=== PATIENT | male | born 1950 | race Two or more races ===

== ENCOUNTER 2020-02-12 10:44 | Emergency (ER) | payer MEDICARE, SELFPAY ==
--- NOTE | 2020-02-12 10:48 | ECG_ITS ---
Test Reason : CHEST PAIN Blood Pressure : / mmHG Vent. Rate : 063 BPM Atrial Rate : 063 BPM P-R Int : 160 ms QRS Dur : 092 ms QT Int : 408 ms P-R-T Axes : 062 048 070 degrees QTc Int : 417 ms Normal sinus rhythm Normal ECG When compared with ECG of 30-JAN-2019 16:57, Vent. rate has decreased BY 44 BPM Referred By: Anni James Electronically Signed By:ABRAHAN NELSON MD
--- NOTE | 2020-02-12 10:50 | ED_ITS ---
HPI - Chest Pain General Chief Complaint: Chest Pain Stated Complaint: low heart rate,high blood pressure Time Seen by Provider: 02/12/20 10:48 Source: patient Mode of arrival: ambulatory Limitations: no limitations History of Present Illness MD complaint: chest pain Onset (ago): week(s) (2) Timing of current episode: episodic Prior episodes: No Onset: during rest and during exertion Pain location: substernal and left chest Pain radiation: none Severity: moderate Quality: tightness, aching and sharp Relieving factors: rest Exacerbating factors: exertion and inspiration Associated symptoms: dyspnea Treatment prior to arrival: aspirin Related Data Previous Rx's Medication Instructions Recorded amlodipine 5 mg PO DAILY #30 tab 02/12/20 lorazepam [Ativan] 1 mg PO DAILY PRN #10 tab 02/12/20 Allergies Allergy/AdvReac Type Severity Reaction Status Date / Time aspirin Allergy Unknown Verified 04/22/14 00:00 No Known Allergies Allergy Unverified 11/08/19 15:09 [No Known Allergies*] Review of Systems Review of Systems: Constitutional : No Fever, No Chills ENT/Mouth : No sore throat, No Rhinorrhea, No Swallowing Difficulty Eyes: No Eye Pain, No Swelling, No Redness Cardiovascular : pos Chest Pain, positive SOB, No Orthopnea, no Edema Respiratory : No Cough, No Sputum, No Wheezing, positive dyspnea Gastrointestinal : No Nausea, No Vomiting, No Diarrhea, No abdominal Pain, No Hematochezia, No Melena Genitourinary : No Dysuria, No Urinary Frequency, No Hematuria Musculoskeletal : No joint pain, No Myalgias Skin : No Skin Lesions, No rash Neuro : No Weakness, No Numbness, No Dizziness, No Headache Psych : No Anxiety/Panic, No Depression Heme/Lymph: No Bruising, No Lymphadenopathy Endocrine : No Polyuria, No Polydipsia All other systems reviewed and are negative [facility] Past Medical History Medical History (Updated 02/12/20 @ 13:58 by Anni James DO) Back pain Depressed High cholesterol HTN (hypertension) Stroke Social History Social History Advance Directives: No Advance Directives Information Provided: Yes Physical Exam Vital Signs: Vital Signs: Last Vital Signs Temp 98.6 F 02/12/20 10:51 Pulse 60 02/12/20 12:01 Resp 18 02/12/20 12:01 BP 163/73 H 02/12/20 12:01 Pulse Ox 96 02/12/20 12:01 Body Mass Index 30.9 Appearance: Alert. Oriented X3. No acute distress. Eyes: Pupils equal, round and reactive to light. ENT: Pharynx normal. Neck: Normal inspection. Neck supple. CVS: Normal heart rate and rhythm. Pulses normal. Respiratory: No respiratory distress. Breath sounds normal. Abdomen: Soft and non-tender. Skin: Skin warm and dry. Normal skin color. Normal skin turgor. Extremities: No lower extremity edema. No calf ttp Neuro: Oriented X 3. No motor deficit. No sensory deficit. Course Course Course Narrative: EKG no acute ischemia, troponin flat at this time, no response to nitro will try ativan for anxiety no distress at all has been on the phone - he has had chest pain x 2 weeks exertion and rest, no ischemia on EKG, on aspirin will add on amlodipine and start PRN anxiety medications refer to cardiology for outpatient stress test MDM - Chest Pain MDM Narrative Medical decision making narrative: 69 yo male with hx of HTN, stroke no deficits, HPL here with 2 weeks of chest pain/dyspnea pleuritic at times but worse with exertion, noted BPs 180s taking his metoprolol/lisinopril - no herman es no caffeine no OTC medications, no prior stress test/cardiac cath at this time will need labs, troponin, EKG, CXR, ddimer, took ASA this AM, give nitro dispo per results and findings, his story is somewhat concerning Lab Data Result diagrams: 02/12/20 11:08 02/12/20 11:49 Labs: Lab Results 02/12/20 02/12/20 02/12/20 Range/Units 11:06 11:08 11:08 WBC 6.5 (4.8-10.8) X10*3/uL RBC 4.90 (4.60-5.80) X10*6/uL Hgb 16.5 (14.0-18.0) g/dl Hct 47.2 (42-52) % MCV 96.3 (80-98) fL MCH 33.7 H (27.0-33.0) pg MCHC 35.0 (31.0-36.0) g/dl RDW 12.1 (11.0-16.0) % Plt Count 216 (160-400) X10*3/uL MPV 9.7 (9.4-12.4) fL Immature Gran % (Auto) 0.5 H (0.0-0.4) % Neut % (Auto) 57.1 (45-73) % Lymph % (Auto) 25.9 (20-40) % Sullivan % (Auto) 8.3 (2-11) % Eos % (Auto) 7.4 H (0-4) % Baso % (Auto) 0.8 (0-2) % Lymph # (Auto) 1.7 (1.2-4.9) X10*3/uL Sullivan # (Auto) 0.5 (0.1-1.2) X10*3/uL Eos # (Auto) 0.5 H (0.0-0.4) X10*3/uL Baso # (Auto) 0.1 (0.0-0.2) X10*3/uL Abs Immat Gran (auto) 0.03 (0.00-0.03) X10*3/uL Absolute Neuts (auto) 3.7 (2.0-8.3) X10*3/uL Absolute Nucleated RBC 0.000 (0.0-0.012) X10*3/uL Nucleated RBC % (auto) 0.0 (0.0-0.2) /100WBC PT (10.8-13.0) SEC INR (0.9-1.1) APTT (24.1-38.0) SEC D-Dimer NG/ML Sodium Cancelled Potassium Cancelled Chloride Cancelled Carbon Dioxide Cancelled Anion Gap Cancelled BUN Cancelled Creatinine Cancelled Estim Creat Clear Calc Cancelled Estimated GFR Cancelled Random Glucose Cancelled Fasting Glucose (60-99) mg/dL Calcium Cancelled Magnesium Total Bilirubin Direct Bilirubin AST ALT Alkaline Phosphatase Troponin I High Sens (<3.5-35.0) ng/L B-Natriuretic Peptide (<100) pg/mL Total Protein Albumin Lipase COVID-19 (LEODAN) Negative (Negative) COVID-19 Clin Com See Note 02/12/20 02/12/20 02/12/20 Range/Units 11:08 11:08 11:08 WBC (4.8-10.8) X10*3/uL RBC (4.60-5.80) X10*6/uL Hgb (14.0-18.0) g/dl Hct (42-52) % MCV (80-98) fL MCH (27.0-33.0) pg MCHC (31.0-36.0) g/dl RDW (11.0-16.0) % Plt Count (160-400) X10*3/uL MPV (9.4-12.4) fL Immature Gran % (Auto) (0.0-0.4) % Neut % (Auto) (45-73) % Lymph % (Auto) (20-40) % Sullivan % (Auto) (2-11) % Eos % (Auto) (0-4) % Baso % (Auto) (0-2) % Lymph # (Auto) (1.2-4.9) X10*3/uL Sullivan # (Auto) (0.1-1.2) X10*3/uL Eos # (Auto) (0.0-0.4) X10*3/uL Baso # (Auto) (0.0-0.2) X10*3/uL Abs Immat Gran (auto) (0.00-0.03) X10*3/uL Absolute Neuts (auto) (2.0-8.3) X10*3/uL Absolute Nucleated RBC (0.0-0.012) X10*3/uL Nucleated RBC % (auto) (0.0-0.2) /100WBC PT 11.0 (10.8-13.0) SEC INR 0.9 (0.9-1.1) APTT 32.4 (24.1-38.0) SEC D-Dimer < 200 NG/ML Sodium Potassium Chloride Carbon Dioxide Anion Gap BUN Creatinine Estim Creat Clear Calc Estimated GFR Random Glucose Fasting Glucose (60-99) mg/dL Calcium Magnesium Cancelled Total Bilirubin Cancelled Direct Bilirubin Cancelled AST Cancelled ALT Cancelled Alkaline Phosphatase Cancelled Troponin I High Sens (<3.5-35.0) ng/L B-Natriuretic Peptide 64 (<100) pg/mL Total Protein Cancelled Albumin Cancelled Lipase Cancelled COVID-19 (LEODAN) (Negative) COVID-19 Clin Com 02/12/20 02/12/20 Range/Units 11:49 12:42 WBC (4.8-10.8) X10*3/uL RBC (4.60-5.80) X10*6/uL Hgb (14.0-18.0) g/dl Hct (42-52) % MCV (80-98) fL MCH (27.0-33.0) pg MCHC (31.0-36.0) g/dl RDW (11.0-16.0) % Plt Count (160-400) X10*3/uL MPV (9.4-12.4) fL Immature Gran % (Auto) (0.0-0.4) % Neut % (Auto) (45-73) % Lymph % (Auto) (20-40) % Sullivan % (Auto) (2-11) % Eos % (Auto) (0-4) % Baso % (Auto) (0-2) % Lymph # (Auto) (1.2-4.9) X10*3/uL Sullivan # (Auto) (0.1-1.2) X10*3/uL Eos # (Auto) (0.0-0.4) X10*3/uL Baso # (Auto) (0.0-0.2) X10*3/uL Abs Immat Gran (auto) (0.00-0.03) X10*3/uL Absolute Neuts (auto) (2.0-8.3) X10*3/uL Absolute Nucleated RBC (0.0-0.012) X10*3/uL Nucleated RBC % (auto) (0.0-0.2) /100WBC PT (10.8-13.0) SEC INR (0.9-1.1) APTT (24.1-38.0) SEC D-Dimer NG/ML Sodium 139 Potassium 3.8 Chloride 107 Carbon Dioxide 25 Anion Gap 11 L BUN 13 Creatinine 0.89 Estim Creat Clear Calc 91.6 Estimated GFR > 60 Random Glucose Fasting Glucose 152 H (60-99) mg/dL Calcium 8.3 L Magnesium 2.1 Total Bilirubin 0.5 Direct Bilirubin 0.2 AST 15 ALT 17 Alkaline Phosphatase 45 Troponin I High Sens < 3.5 (<3.5-35.0) ng/L B-Natriuretic Peptide (<100) pg/mL Total Protein 6.5 Albumin 4.0 Lipase 43 COVID-19 (LEODAN) (Negative) COVID-19 Clin Com ECG Data ECG #1: Attestation: I personally reviewed and interpreted this ECG as follows: ECG interpretation date: 02/12/20 ECG interpretation time: 11:03 Interpretation: Rate: 63 Rhythm: NSR [place]: normal Normal P waves. Normal JOSE ALFREDO. Normal QRS complex. ST T wave : inverted aVL, no GOYO qTC: normal prior studies: artifact noted but no acute ischemia The study has been interpreted contemporaneously by me. . Discharge Plan Discharge Clinical Impression: Chest pain Qualifiers: Chest pain type: unspecified Qualified Code(s): R07.9 - Chest pain, unspecified HTN (hypertension) Qualifiers: Hypertension type: unspecified Qualified Code(s): I10 - Essential (primary) h ypertension Patient Disposition: Home, Self-Care Instructions: Chest Pain (ED), Chronic Hypertension (ED) Additional Instructions: return to ED for any worsening symptoms or concerns you need to have an outpatient stress test please call your doctor Prescriptions: New amlodipine 5 mg tablet 5 mg PO DAILY Qty: 30 RF: 0 lorazepam [Ativan] 1 mg tablet 1 mg PO DAILY PRN (Reason: anxiety) Qty: 10 RF: 0 Referrals: Anders Cruz MD [Primary Care Provider] - 2 days (outpatient stress test) Stand Alone Forms: Work/School Release
[2020-02-12 10:51] VITALS: BP 179/91; PULSE 62; RESP 18; TEMP 37; O2SAT 96; BMI 30.9
--- NOTE | 2020-02-12 10:57 | XR_ITS ---
EXAMINATION: XR CHEST CLINICAL INFORMATION: Chest pain. COMPARISON: Chest 01/30/2019 TECHNIQUE: Frontal view of the chest was obtained. FINDINGS: The lungs are well-expanded and clear of acute pneumonic process. Mild prominence of bilateral interstitial markings but no acute process. Heart size and pulmonary vascularity is normal. No gross bony or ligamentous seen. XR/XR chest 1V IMPRESSION: Unremarkable chest exam. No change from 01/30/2019.
[2020-02-12] MEDS: Nitroglycerin 0.4 MG TAB.SUBL SUBLINGUAL (11:16)
[2020-02-12 11:19] VITALS: BP 172/90; PULSE 69; O2SAT 96
[2020-02-12 11:19] LABS: Basophils Absolute Auto 0.1 X10*3/uL (0.0-0.2); Basophils Percent Auto 0.8 % (0-2); Eosinophils Absolute Auto 0.5 X10*3/uL (0.0-0.4); Eosinophils Percent Auto 7.4 % (0-4); Hematocrit 47.2 % (42-52); Hemoglobin 16.5 g/dl (14.0-18.0); Imm Gran Abs Auto 0.03 X10*3/uL (0.00-0.03); Imm Gran Pct Auto 0.5 % (0.0-0.4); Lymphocytes Absolute Auto 1.7 X10*3/uL (1.2-4.9); Lymphocytes Percent Auto 25.9 % (20-40); MANUAL DIFF FLAG NO; Mean Corpuscular Hemoglobin 33.7 pg (27.0-33.0); Mean Corpuscular Volume 96.3 fL (80-98); Mean Platelet Volume 9.7 fL (9.4-12.4); Monocytes Absolute Auto 0.5 X10*3/uL (0.1-1.2); Monocytes Percent Auto 8.3 % (2-11); Neutrophils Absolute Auto 3.7 X10*3/uL (2.0-8.3); Neutrophils Percent Auto 57.1 % (45-73); Platelet Count 216 X10*3/uL (160-400); Red Cell Distribution Width 12.1 % (11.0-16.0); White Blood Count 6.5 X10*3/uL (4.8-10.8)
[2020-02-12] MEDS: Acetaminophen 325 MG TABLET 650 MG PO (11:19)
[2020-02-12 11:23] LABS: INTERNATIONAL NORM RATIO 0.9 (0.9-1.1)
[2020-02-12 11:26] LABS: Partial Thromboplastin Time 32.4 SEC (24.1-38.0)
[2020-02-12 11:31] LABS: D Dimer < 200 NG/ML
[2020-02-12 11:33] VITALS: BP 140/84; PULSE 61; RESP 18; O2SAT 95
[2020-02-12 11:44] LABS: B Type Natriuretic Peptide 64 pg/mL (<100)
[2020-02-12 11:47] LABS: COVID-19 Test Negative (Negative); IDNOW Serial# 9DD0AD1C
[2020-02-12 12:01] VITALS: BP 163/73; PULSE 60; RESP 18; O2SAT 96
[2020-02-12 12:33] LABS: Alanine Aminotransferase 17 U/L (0-40); Alkaline Phosphatase 45 U/L (39-117); Anion Gap 11 (12-20); Aspartate Amino Transferase 15 U/L (5-37); Bilirubin Direct 0.2 mg/dL (0.0-0.5); Bilirubin Total 0.5 mg/dL (0.0-1.0); Blood Urea Nitrogen 13 mg/dL (9-16); Calcium 8.3 mg/dL (8.4-10.2); Carbon Dioxide 25 mmol/L (22-29); Chloride 107 mmol/L (96-108); Creatinine Clr Calc Pharmacy 91.6; Estimated Glomerular Filt Rate > 60; Glucose Fasting 152 mg/dL (60-99); Lipase 43 U/L (8-78); Magnesium 2.1 mg/dL (1.6-2.6); Potassium 3.8 mmol/l (3.3-5.1); Sodium 139 mmol/L (135-145); Total Protein 6.5 g/dL (6.5-8.0)
[2020-02-12 13:12] LABS: Troponin-I High Sensitivity < 3.5 ng/L (<3.5-35.0)
[2020-02-12] MEDS: LORazepam 1 MG TABLET PO (13:44)
== END 2020-02-12 14:08 | disposition home or self-care (01) ==
PROVIDERS: Emergency Provider Emergency Medicine; PCP Internal Medicine
DX: R07.9 Chest pain, unspecified (principal); I11.0 Hypertensive heart disease with heart failure; I10 Essential (primary) hypertension; Z79.899 Other long term (current) drug therapy; Z20.828 Contact with and (suspected) exposure to other viral communicable diseases
CPT/HCPCS: 36415; 71045; 80048; 80076; 83690; 83735; 83880; 84484; 85025; 85379; 85610; 85730; 87635; 93005; 99284; 99285

== ENCOUNTER 2020-02-13 16:25 | Emergency (ER) | payer MEDICARE, SELFPAY ==
--- NOTE | 2020-02-13 | ECG_ITS ---
Test Reason : CHEST PAIN Blood Pressure : / mmHG Vent. Rate : 058 BPM Atrial Rate : 058 BPM P-R Int : 150 ms QRS Dur : 098 ms QT Int : 400 ms P-R-T Axes : 036 042 056 degrees QTc Int : 392 ms Sinus bradycardia Otherwise normal ECG When compared with ECG of 12-FEB-2020 10:52, No significant change was found Referred By: Generic ED Physician Electronically Signed By:ABRAHAN NELSON MD
[2020-02-13 16:26] VITALS: BMI 30.8
[2020-02-13 16:41] VITALS: BP 170/97; PULSE 58; RESP 16; TEMP 37.1; O2SAT 95; BMI 30.8
--- NOTE | 2020-02-13 16:41 | XR_ITS ---
EXAMINATION: XR CHEST CLINICAL INFORMATION: Chest pain COMPARISON: Chest radiographs 02/12/2020, 01/30/2019 TECHNIQUE: Portable upright AP view of the chest was obtained. FINDINGS: The heart is normal in size. The vascularity is normal. There is no pneumothorax or vascular congestion. No airspace consolidation or groundglass opacity or effusion. No acute bony abnormality. XR/XR chest 1V IMPRESSION: Unremarkable examination.
--- NOTE | 2020-02-13 16:53 | ED_ITS ---
HPI - Chest Pain General Chief Complaint: Chest Pain Stated Complaint: chest pressure Time Seen by Provider: 02/13/20 16:41 Source: patient Mode of arrival: ambulatory Limitations: no limitations History of Present Illness HPI narrative: 69-year-old male history of hypertension, remote history of CVA with no neurological deficit, presented with few weeks of mid chest pain with no radiation, patient described pain sometimes has pleuritic chest pain but another time it also exertional, pain is localized to the mid chest area with no radiation, patient also was complaining of headache and high blood pressure for the past few weeks, patient was seen in the emergency department yesterday had cardiac workup which was unremarkable, patient was sent back to the primary doctor who recommended to come back to the emergency department for further evaluation. Review labs from yesterday/chest x-ray D-dimer/troponin was unremarkable. Related Data Previous Rx's Medication Instructions Recorded amlodipine 5 mg PO DAILY #30 tab 02/12/20 lorazepam [Ativan] 1 mg PO DAILY PRN #10 tab 02/12/20 Allergies Allergy/AdvReac Type Severity Reaction Status Date / Time No Known Allergies Allergy Verified 02/13/20 16:48 [No Known Allergies*] Review of Systems Review of Systems: All other systems are reviewed and are negative Constitutional: Reports as per HPI and Reports no additional constitutional complaints Eyes: Reports as per HPI and Reports no additional eye complaints Reports system reviewed and no additional complaints, except as documented Cardiovascular: Reports as per HPI and Reports no additional cardiovascular complaints Respiratory: Reports as per HPI and Reports no additional respiratory complaints Gastrointestinal: Reports as per HPI and Reports no additional gastrointestinal complaints Genitourinary: Reports no additional female genitourinary complaints Musculoskeletal: Reports no additional musculoskeletal complaints Skin/Breast: Reports system reviewed and no additional complaints, except as doc u Psychiatric: Reports no additional psychiatric complaints Endocrine: Reports no additional endocrine complaints Hematologic/Lymphatic: Reports no additional hematologic/lymphatic complaints Allergic/Immunologic: Reports no additional allergic/immunologic complaints Reports system reviewed and no additional complaints, except as documented and Reports Abnormal speech present [facility] Past Medical History Medical History Back pain Depressed High cholesterol HTN (hypertension) Stroke Social History Social History Smoking Status: Never smoker Use of substances other than those prescribed or required for medical reasons: Yes Substance Use Type: Marijuana Advance Directives: No Advance Directives Information Provided: Yes Physical Exam Vital Signs: Vital Signs: Last Vital Signs Temp 98.7 F 02/13/20 16:41 Pulse 63 02/13/20 18:00 Resp 16 02/13/20 18:00 BP 157/84 H 02/13/20 18:00 Pulse Ox 95 02/13/20 18:00 Body Mass Index 30.8 Vital signs have been reviewed as normal and appeared to be correct. Blood pressure in the high range. Heart rate normal. Respiration rate normal. Temperature normal. Oxygen saturation normal. Appearance: Alert. Oriented X3. No acute distress. Head: Normal external exam. Normocephalic. Atraumatic. No Marrero signs noted. No raccoon eyes noted Eyes: PERRLA. EOMI. Conjunctiva and sclera normal. Eyelids normal. ENT: EAC normal. TM's Normal. Pharynx normal. Uvula midline. Moist mucous membranes. No trismus noted. No drooling noted. No muffled voice noted. Neck: Normal inspection. Neck supple. FROM. No adenopathy. Thyroid Normal. No meningeal signs. No neck mass noted. CVS: Normal heart rate and rhythm. Heart sound normal. No murmurs noted. Pulses normal throughout. Respiratory: No respiratory distress. Painless inspiration. Breath sounds normal. No wheezes/rales/rhonchi noted. Chest nontender. No accessory muscle usage noted or decreased air movement noted. Abdomen: Soft and nontender. Bowel sounds normal in all 4 quadrants. No distention noted. No organomegaly noted. No visible injury noted. Back: No CVA tenderness. Full range of motion noted. Skin: Skin warm and dry. Normal skin color. Normal skin turgor. No rashes/lesions/lacerations noted. Extremities: No lower extremity edema. Extremities exhibit normal range of motion. Extremities nontender. Neuro: Oriented X 3. No motor deficit. No sensory deficit. Reflexes normal. MDM - Chest Pain MDM Narrative Medical decision making narrative: Assessment and plan. 69-year-old male with history of localized chest pain described as exertional, patient was evaluated in the emergency department yesterday found to have high blood pressure patient was prescribed amlodipine 5 mg daily was started today, patient was seen and evaluated by her primary doctor who sent the patient back to the emergency department for reassessment, patient's story unchanged from yesterday intermittent exertional chest pain on and off for the past few weeks, unremarkable troponin since yesterday, unremarkable EKG changes, the case was discussed with Dr. Conner (director traffic and planning) since the patient had serial of negative high sensitive troponin, D-dimer, EKG, patient was instructed to take his new blood pressure medication, and call Dr. Conner make an appointment for an outpa tient stress test. Lab Data Result diagrams: 02/13/20 17:12 02/13/20 17:12 Labs: Lab Results 02/13/20 02/13/20 02/13/20 Range/Units 17:12 17:12 17:12 WBC 8.4 (4.8-10.8) X10*3/uL RBC 4.87 (4.60-5.80) X10*6/uL Hgb 16.1 (14.0-18.0) g/dl Hct 46.1 (42-52) % MCV 94.7 (80-98) fL MCH 33.1 H (27.0-33.0) pg MCHC 34.9 (31.0-36.0) g/dl RDW 12.0 (11.0-16.0) % Plt Count 218 (160-400) X10*3/uL MPV 10.0 (9.4-12.4) fL Immature Gran % (Auto) 0.4 (0.0-0.4) % Neut % (Auto) 58.2 (45-73) % Lymph % (Auto) 26.4 (20-40) % [place] % (Auto) 9.4 (2-11) % Eos % (Auto) 5.0 H (0-4) % Baso % (Auto) 0.6 (0-2) % Lymph # (Auto) 2.2 (1.2-4.9) X10*3/uL [place] # (Auto) 0.8 (0.1-1.2) X10*3/uL Eos # (Auto) 0.4 (0.0-0.4) X10*3/uL Baso # (Auto) 0.1 (0.0-0.2) X10*3/uL Abs Immat Gran (auto) 0.03 (0.00-0.03) X10*3/uL Absolute Neuts (auto) 4.9 (2.0-8.3) X10*3/uL Absolute Nucleated RBC 0.000 (0.0-0.012) X10*3/uL Nucleated RBC % (auto) 0.0 (0.0-0.2) /100WBC D-Dimer < 200 NG/ML Sodium 139 (135-145) mmol/L Potassium 4.2 (3.3-5.1) mmol/l Chloride 104 (96-108) mmol/L Carbon Dioxide 25 (22-29) mmol/L Anion Gap 14 (12-20) BUN 12 (9-16) mg/dL Creatinine 0.89 (0.5-1.4) mg/dL Estim Creat Clear Calc 91.5 Estimated GFR > 60 Random Glucose 90 (60-115) mg/dL Calcium 8.8 D (8.4-10.2) mg/dL Total Bilirubin 0.7 (0.0-1.0) mg/dL Direct Bilirubin 0.2 (0.0-0.5) mg/dL AST 20 (5-37) U/L ALT 19 (0-40) U/L Alkaline Phosphatase 38 L (39-117) U/L Troponin I High Sens (<3.5-35.0) ng/L B-Natriuretic Peptide (<100) pg/mL Total Protein 7.2 (6.5-8.0) g/dL Albumin 4.4 (3.5-5.0) g/dL Lipase 37 (8-78) U/L 02/13/20 Range/Units 17:12 WBC (4.8-10.8) X10*3/uL RBC (4.60-5.80) X10*6/uL Hgb (14.0-18.0) g/dl Hct (42-52) % MCV (80-98) fL MCH (27.0-33.0) pg MCHC (31.0-36.0) g/dl RDW (11.0-16.0) % Plt Count (160-400) X10*3/uL MPV (9.4-12.4) fL Immature Gran % (Auto) (0.0-0.4) % Neut % (Auto) (45-73) % Lymph % (Auto) (20-40) % [place] % (Auto) (2-11) % Eos % (Auto) (0-4) % Baso % (Auto) (0-2) % Lymph # (Auto) (1.2-4.9) X10*3/uL [place] # (Auto) (0.1-1.2) X10*3/uL Eos # (Auto) (0.0-0.4) X10*3/uL Baso # (Auto) (0.0-0.2) X10*3/uL Abs Immat Gran (auto) (0.00-0.03) X10*3/uL Absolute Neuts (auto) (2.0-8.3) X10*3/uL Absolute Nucleated RBC (0.0-0.012) X10*3/uL Nucleated RBC % (auto) (0.0-0.2) /100WBC D-Dimer NG/ML Sodium (135-145) mmol/L Potassium (3.3-5.1) mmol/l Chloride (96-108) mmol/L Carbon Dioxide (22-29) mmol/L Anion Gap (12-20) BUN (9-16) mg/dL Creatinine (0.5-1.4) mg/dL Estim Creat Clear Calc Estimated GFR Random Glucose (60-115) mg/dL Calcium (8.4-10.2) mg/dL Total Bilirubin (0.0-1.0) mg/dL Direct Bilirubin (0.0-0.5) mg/dL AST (5-37) U/L ALT (0-40) U/L Alkaline Phosphatase (39-117) U/L Troponin I High Sens < 3.5 (<3.5-35.0) ng/L B-Natriuretic Peptide 87 (<100) pg/mL Total Protein (6.5-8.0) g/dL Albumin (3.5-5.0) g/dL Lipase (8-78) U/L Imaging Data Chest x-ray: Radiologist's impression: Unremarkable examination. ECG Data ECG #1: Interpretation: Sinus bradycardia at 58 beats per minute, normal axis, normal intervals, no ST-T changes. Discharge Plan Discharge Clinical Impression: Chest pain Qualifiers: Chest pain type: unspecified Qualified Code(s): R07.9 - Chest pain, unspecified Hypertension Qualifiers: Hypertension type: essential hypertension Qualified Code(s): I10 - Essential (primary) hypertension Patient Disposition: Home, Self-Care Instructions: Hypertension (ED), Chest Pain (ED) Additional Instructions: Take your blood pressure medication as we discussed, try to avoid strenuous activity until we see Dr. Conner. Come back to the emergency department for worsening or change of the character of the chest pain. Prescriptions: No Action amlodipine 5 mg tablet 5 mg PO DAILY Qty: 30 RF: 0 lorazepam [Ativan] 1 mg tablet 1 mg PO DAILY PRN (Reason: anxiety) Qty: 10 RF: 0 Referrals: James Conner MD [Physician] - 2 days
[2020-02-13 17:15] VITALS: PULSE 55
[2020-02-13 17:20] LABS: MANUAL DIFF FLAG NO
[2020-02-13 17:24] LABS: Basophils Absolute Auto 0.1 X10*3/uL (0.0-0.2); Basophils Percent Auto 0.6 % (0-2); Eosinophils Absolute Auto 0.4 X10*3/uL (0.0-0.4); Hematocrit 46.1 % (42-52); Hemoglobin 16.1 g/dl (14.0-18.0); Imm Gran Abs Auto 0.03 X10*3/uL (0.00-0.03); Imm Gran Pct Auto 0.4 % (0.0-0.4); Lymphocytes Absolute Auto 2.2 X10*3/uL (1.2-4.9); Lymphocytes Percent Auto 26.4 % (20-40); Mean Corpuscular HGB Conc 34.9 g/dl (31.0-36.0); Mean Corpuscular Hemoglobin 33.1 pg (27.0-33.0); Mean Corpuscular Volume 94.7 fL (80-98); Monocytes Absolute Auto 0.8 X10*3/uL (0.1-1.2); Monocytes Percent Auto 9.4 % (2-11); Neutrophils Absolute Auto 4.9 X10*3/uL (2.0-8.3); Neutrophils Percent Auto 58.2 % (45-73); Platelet Count 218 X10*3/uL (160-400); Red Blood Count 4.87 X10*6/uL (4.60-5.80); White Blood Count 8.4 X10*3/uL (4.8-10.8)
[2020-02-13 17:42] LABS: D Dimer < 200 NG/ML
[2020-02-13 17:46] LABS: Alanine Aminotransferase 19 U/L (0-40); Albumin Level 4.4 g/dL (3.5-5.0); Alkaline Phosphatase 38 U/L (39-117); Anion Gap 14 (12-20); Aspartate Amino Transferase 20 U/L (5-37); Bilirubin Direct 0.2 mg/dL (0.0-0.5); Bilirubin Total 0.7 mg/dL (0.0-1.0); Blood Urea Nitrogen 12 mg/dL (9-16); Calcium 8.8 mg/dL (8.4-10.2); Carbon Dioxide 25 mmol/L (22-29); Chloride 104 mmol/L (96-108); Creatinine Clr Calc Pharmacy 91.5; Estimated Glomerular Filt Rate > 60; Glucose Random 90 mg/dL (60-115); Lipase 37 U/L (8-78); Potassium 4.2 mmol/l (3.3-5.1); Sodium 139 mmol/L (135-145); Total Protein 7.2 g/dL (6.5-8.0)
[2020-02-13 17:47] LABS: B Type Natriuretic Peptide 87 pg/mL (<100); Troponin-I High Sensitivity < 3.5 ng/L (<3.5-35.0)
[2020-02-13 18:00] VITALS: BP 157/84; PULSE 63; RESP 16; O2SAT 95
== END 2020-02-13 18:56 | disposition home or self-care (01) ==
PROVIDERS: Emergency Provider Emergency Medicine; PCP Internal Medicine
DX: R07.9 Chest pain, unspecified (principal); I10 Essential (primary) hypertension
CPT/HCPCS: 36415; 71045; 80048; 80076; 83690; 83880; 84484; 85025; 85379; 93005; 99284

== ENCOUNTER → 2020-03-05 08:32 | Outpatient (BNVA) | payer MEDICARE, SELFPAY | PROVIDERS: PCP Internal Medicine; Visit Provider Internal Medicine | DX: R07.2 Precordial pain (principal); R06.02 Shortness of breath; I10 Essential (primary) hypertension | CPT/HCPCS: 99202 ==

== ENCOUNTER → 2020-04-02 08:20 | Outpatient (REF) | payer MEDICARE, SELFPAY ==
--- NOTE | ~2020-04-02 | NM_ITS ---
Lexiscan Myocardial perfusion study Indication: Chest discomfort, hypertension, chest pain, shortness of breath, assess for coronary disease and ischemia Technique: The patient was brought in for a Lexiscan perfusion study on 04/02/2020 and was injected 0.4 mg of Lexiscan intravenously. Within a minute of this injection 35 mCi of sestamibi was given intravenously. Images were obtained using the SPECT gamma camera interlaced with the gating device. Images were obtained in supine position. Resting perfusion study was performed on 04/03/2020. Patient was administered 35 mCi of sestamibi intravenously at rest. Images were then obtained in supine position. Total DLP 69mGy-cm. Images were processed with the software and compared side to side in short axis, horizontal long axis and vertical long axis views. Findings: Raw acquisition was reviewed. The stress perfusion study showed diminished tracer uptake along the inferior wall and inferior septum. With CT attenuation correction, there is improvement and hence could represent diaphragmatic attenuation artifact. The gated study shows normal LV systolic function with calculated LVEF of 61%. LV cavity is normal in size. The gated study shows normal wall thickening and contraction of segments. Resting study shows diminished tracer uptake along the inferior wall and part of inferior septum. With CT attenuation correction, there is improvement which may indicate diaphragmatic attenuation artifact. Gating at rest reveals normal wall motion with ejection fraction at 59%. The findings are consistent with fixed inferior and inferior septal perfusion defect. No reversible defects. NM/NM melody perf SPECT rest & str Impression: 1. Myocardial perfusion imaging study shows fixed inferior and inferior septal defect suspected to be from diaphragmatic attenuation artifact. Otherwise no definitive evidence of any ischemia or infarction. 2. Gated LVEF is 61% during stress and 59% during rest. 3. Transient ischemic dilatation not present. EKG component of the test reported separately.
--- NOTE | 2020-04-02 08:23 | CA_ITS ---
Acquisition Time: 2020-04-02 09:38:00 Total Exercise Time: 00:02:00 Test Indications: Chest Pain Medications: AMLODIPINE ASA GABAPENTIN LISINOPRIL METOPROLOL SIMVASTATIN Protocol: LEXISCAN Max HR: 095 BPM 62% of Pred: 153 BPM Max BP: 132/080 mmHG Max Work Load: 1.0 METS Pharmacological stress test using Lexiscan while sitting and kicking his feet. Pt tolerated well, denies any anginal sx. EKG without any arrhythmias. nondiagnostic for ischemia. Nuclear images to follow. Normotensive response to test. Test revieweed with Dr. Khan Referred By: Sachin Khan Overread By: Marce Hurtado
--- NOTE | 2020-04-02 08:23 | CA_ITS ---
Transthoracic Echocardiogram Patient (Last, First, Middle): Maverick Shelton E Gender: Male Date of : 1950 Age: 69 Procedure Date: 04/02/2020 Procedure Type: Transthoracic Echocardiogram Location: OP Height: 175.26 cm Weight: 97.52 kg BSA: 2.13 m2 Heart Rate: bpm BP: 130 / 80 mmHg Medical Physics Researcher: CELIA Referring MD: Sachin Khan MD Symptoms: R06.02 - Shortness of breath Study Quality: Fair ECG Rhythm: Sinus Conclusions: - The left ventricular systolic function is normal. The visually estimated ejection fraction is between 60-65%. - No obvious valvular pathology seen on this study. - There is mild dilatation of the ascending aorta measuring 4.10 cm. Findings Left Ventricle Normal left ventricular cavity size. There is normal left ventricular wall thickness. The left ventricular systolic function is normal. The visually estimated ejection fraction is between 60-65%. There is no evidence of regional wall motion abnormalities. Diastolic function is normal for age. Right Ventricle Normal right ventricular cavity size and systolic function. Atria The left atrium is normal in size. The right atrium is normal in size. Aortic Valve There is a normal trileaflet aortic valve. There is no aortic valve stenosis. There is trace (trivial) aortic valve regurgitation. Mitral Valve The mitral valve appears normal. There is trace mitral valve regurgitation. There is no mitral valve stenosis. Pulmonic Valve The pulmonic valve was not well visualized. Tricuspid Valve Normal tricuspid valve structure. There is trace tricuspid valve regurgitation. The pulmonary artery systolic pressure is normal. Great Vessels There is mild dilatation of the ascending aorta measuring 4.10 cm. Aortic arch measures 3.3 cm. Venous The inferior vena cava is normal in size and collapses greater than 50% with inspiration. Pericardium/Pleural There is no evidence of pericardial effusion. Prior Study Comparison No prior study available for comparison. Recommendations, Care & Conclusions No obvious valvular pathology seen on this study. Measurements 2D Linear Measurements IVSd: 1.05 0.6-0.9/0.6-1.0 cm LVIDd: 5.56 3.9-5.3/4.2-5.9 cm LVIDd Index: 2.61 2.4-3.2/2.2-3.1 cm/m2 LVIDs: 3.60 2.0-3.6 cm LVPWd: 0.86 0.7-1.1 cm Ao Root: 3.10 2.1-3.5 cm LA Diam: 3.60 2.7-3.8/3.0-4.0 cm LAIDs Index: 1.69 1.5-2.3 cm/m2 LV Mass: 255.27 67-162/88-224 g LV Mass Index: 119.85 43-95/49-115 g/m2 LVOT Diam: 2.10 3.0+(-)1.3 cm 2D Systolic Function EF 4C: 61.40 >55% EF 2C: 61.80 >55% EF BiP: 61.90 >55% Mitral Valve MV Pk E: 0.75 MV PK A: 0.73 MV Decel Time: 173.00 E/A: 1.00 E'Lateral: 12.30 E'Medial: 7.18 E/E' Med: 10.50 E/E' Lat: 6.10 PHT: 51.00 MVA PHT: 4.31 Decel Winkler: 4.36 Aortic Valve AoV Pk Claude: 1.45 AoV Pk Grad: 8.00 LVOT LVOT Pk Claude: 1.24 LVOT Mn Claude: 0.82 LVOT VTI: 0.28 LVOT Pk Grad: 6.00 LVOT Mn Grad: 3.00 LVOT Diam: 2.10 LVOT Area: 3.46 Diastolic Function MV Pk E: 0.75 MV Pk A: 0.73 E/A: 1.00 E'Medial: 7.18 E/E' Med: 10.50 E' Laterial: 12.30 E/E' Lat: 6.10 Tricuspid Valve TR Pk Claude: 2.25 TR Pk Grad: 20.00 RA Press: 3.00 RVSP: 23.00 Great Vessels Aorta Ao Root-2D: 3.10 2.0-3.7 cm Ao Asc: 4.10 2.1-3.4 cm Updated in Other Vendor System with Status of Final Sachin Khan MD electronically signed on 04/02/2020 12:59:40 PM with status of Final
== END ==
LOC: HO.CARD 08:20
PROVIDERS: Visit Provider Internal Medicine
DX: R07.2 Precordial pain (principal); R06.02 Shortness of breath
CPT/HCPCS: 78452; 93017; 93306; A9500; J0280; J2785

== ENCOUNTER 2020-07-29 14:52 | Outpatient (REF) | payer MEDICARE, SELFPAY ==
--- NOTE | ~2020-07-29 | US_ITS ---
EXAMINATION: US RETROPERITONEAL LIMITED (RENAL ONLY) CLINICAL INFORMATION: Frequency, abdominal pain. COMPARISON: CT abdomen and pelvis with intravenous contrast dated 12/02/2018. TECHNIQUE: Real-time imaging of the kidneys. FINDINGS: RIGHT KIDNEY: 10.8 x 5.9 x 7.0 cm (SAG x AP x TRV). The kidney is normal in size, contour, and echogenicity. Renal cortical thickness is normal. No renal calculi or hydronephrosis. There is a 6 hypoechoic exophytic area lower pole measuring 0.9 x 0.5 x 0.7 cm likely a small exophytic cyst. LEFT KIDNEY: 11.1 x 5.6 x 4.9 cm (SAG x AP x TRV). The kidney is normal in size, contour, and echogenicity. Renal cortical thickness is normal. No renal calculi or hydronephrosis. There is a small anechoic cyst measuring 3.1 x 3.5 x 3.2 cm. US/US renal BI IMPRESSION: Exophytic cyst lower pole right kidney and a simple cyst upper pole left kidney. There are no echogenic stones or hydronephrosis..
== END 2020-07-29 14:53 | disposition home or self-care (01) ==
LOC: HO.US 14:52
PROVIDERS: Visit Provider Registered Nurse
DX: R10.9 Unspecified abdominal pain (principal); R35.0 Frequency of micturition; R82.90 Unspecified abnormal findings in urine
CPT/HCPCS: 76775

== ENCOUNTER 2020-08-26 13:29 | Outpatient (REF) | payer MEDICARE, MEDICAID, SELFPAY ==
[2020-08-26 15:36] LABS: PSA,Total (Free>4and<10) 6.01 ng/mL (0.00-4.00)
[2020-08-27 10:32] LABS: Free Prostate Spec Ag 0.6 ng/mL; Percent Free Prostate Spec Ag 12 % (calc) (>25); Prostate Specific Ag Total 4.9 ng/mL (< OR = 4.0)
== END 2020-08-26 13:30 | disposition home or self-care (01) ==
LOC: HO.LAB 13:29
PROVIDERS: PCP Internal Medicine; Visit Provider Urology
DX: R97.20 Elevated prostate specific antigen [PSA] (principal); Z12.5 Encounter for screening for malignant neoplasm of prostate
CPT/HCPCS: 36415; 84153; 84154

== ENCOUNTER → 2020-08-27 13:38 | Outpatient (BNVA) | payer MEDICARE, SELFPAY | PROVIDERS: PCP Internal Medicine; Visit Provider Urology | DX: N40.1 Benign prostatic hyperplasia with lower urinary tract symptoms (principal); N13.8 Other obstructive and reflux uropathy; R97.20 Elevated prostate specific antigen [PSA] | CPT/HCPCS: 99212 ==

== ENCOUNTER 2021-05-11 10:21 | Outpatient (REF) | payer MEDICARE, MEDICAID, SELFPAY ==
[2021-05-11 12:43] LABS: PSA,Total (Free>4and<10) 3.06 ng/mL (0.00-4.00)
== END 2021-05-11 10:22 | disposition home or self-care (01) ==
LOC: HO.LAB 10:21
PROVIDERS: PCP Internal Medicine; Visit Provider Urology
DX: R97.20 Elevated prostate specific antigen [PSA] (principal); Z12.5 Encounter for screening for malignant neoplasm of prostate
CPT/HCPCS: 36415; 84153

== ENCOUNTER → 2021-05-15 13:26 | Outpatient (BNVA) | payer MEDICARE, MEDICAID, SELFPAY | PROVIDERS: PCP Internal Medicine; Visit Provider Urology | DX: Z13.89 Encounter for screening for other disorder (principal) ==

== ENCOUNTER → 2021-07-28 15:23 | Outpatient (BNVA) | payer MEDICARE, MEDICAID, SELFPAY | PROVIDERS: PCP Internal Medicine; Referring Provider Internal Medicine; Visit Provider Nurse Practitioner | DX: Z01.818 Encounter for other preprocedural examination (principal) | CPT/HCPCS: 99202 ==

== ENCOUNTER → 2021-08-04 13:28 | Outpatient (BNVA) | payer MEDICARE, MEDICAID, SELFPAY | PROVIDERS: PCP Internal Medicine; Visit Provider Urology | DX: R97.20 Elevated prostate specific antigen [PSA] (principal); N40.1 Benign prostatic hyperplasia with lower urinary tract symptoms; N13.8 Other obstructive and reflux uropathy; Z79.899 Other long term (current) drug therapy | CPT/HCPCS: Q3014 ==

== ENCOUNTER 2021-11-07 14:59 | Inpatient (IN) | payer MEDICARE, MEDICAID, SELFPAY ==
--- NOTE | ~2021-11-07 | CT_ITS ---
EXAMINATION: CT HIP WITHOUT CONTRAST, RIGHT CLINICAL INFORMATION: Hardware failure. COMPARISON: Pelvis 01/16/2018.. TECHNIQUE: Axial 2 mm and reformatted 1 mm thin sagittal coronal images of right hip were obtained. This CT examination was performed using dose optimization techniques as appropriate, variously including the following: *Automated exposure control *Adjustment of mA and/or kV according to patient size (this includes techniques or standardized protocols for targeted exams where dose is matched to indication/reason for exam; i.e. extremities or head) *Use of iterative reconstruction technique DLP: 363 mGy-cm FINDINGS: There is a fracture right femoral prosthesis at the head and neck junction when compared to previous pelvic x-ray 01/16/2018. The acetabular prosthesis is intact. The periprostatic bone is intact with no visible fracture. No loosening of the femoral prosthetic stem. The soft tissues are normal. Partially visualized is L4, L5 pedicular screws and interconnecting rods for lower lumbar spine fusion. CT/CT hip RT wo IV con IMPRESSION: Hardware failure. Fracture of the right femoral prosthesis at the head and neck junction. However there is no dislocation. The acetabular prosthesis is normal. No periprosthetic fracture seen.
--- NOTE | ~2021-11-07 | XR_ITS ---
EXAMINATION: XR PELVIS CLINICAL INFORMATION: Status post right hip total hip revision. COMPARISON: Pelvic radiographs dated 01/16/2018. TECHNIQUE: AP view of the pelvis. FINDINGS: The patient is status post right hip arthroplasty showing good anatomic alignment and no evidence for hardware malfunction. Mild adjacent soft tissue air is noted. Surgical skin yevgeniy overlie the right lateral soft tissues. XR/XR pelvis 1-2V IMPRESSION: Postoperative changes without hardware abnormality.
--- NOTE | ~2021-11-07 | XR_ITS ---
EXAMINATION: XR CHEST 2 VIEWS CLINICAL INFORMATION: Medical clearance. COMPARISON: Chest radiograph dated 02/13/2020. TECHNIQUE: Frontal and lateral views of the chest were obtained. FINDINGS: The heart, great vessels, pulmonary vasculature and mediastinum are normal. The lungs show no focal infiltrate, effusion or pneumothorax. There is no acute osseous abnormality. An orthopedic anchor is applied to the left humeral head. XR/XR chest 1V IMPRESSION: No active cardiopulmonary disease.
--- NOTE | ~2021-11-07 | XR_ITS ---
EXAMINATION: XR HIP, RIGHT CLINICAL INFORMATION: Fall COMPARISON: 01/16/2018 TECHNIQUE: Two views of the right hip. FINDINGS: There is angulation of the prosthesis itself at the junction of the wall and trochanteric region. I must consider evidence of hardware failure here. There is no convincing evidence of acute underlying bony fracture. Some densities in the region which may be dystrophic calcification. XR/XR hip RT w PEL1V IMPRESSION: Abnormal appearance to the femoral component of the prosthesis. Hardware failure/fracture through the hardware could not be excluded when compared to previous dated 01/16/2018. Correlation needs to be made clinically. No dislocation of the ball of the hip from the acetabular component is seen here.
[2021-11-07 15:29] VITALS: BP 145/79; PULSE 63; RESP 16; TEMP 36.4; O2SAT 96; BMI 32.1
[2021-11-07] MEDS: Ibuprofen 600 MG TABLET PO (15:39)
[2021-11-07 16:01] VITALS: BP 154/72; PULSE 80; O2SAT 95
--- NOTE | 2021-11-07 16:32 | ED_ITS ---
HPI - Extremity Injury (Lower) General Chief Complaint: Fall <Perlita Gutiérrez JAMILAH Strickland - Last Filed: 11/07/21 19:20> Stated Complaint: fell right hip pain <Perlita Gutiérrez JAMILAH Strickland - Last Filed: 11/07/21 19:20> Time Seen by Provider: 11/07/21 16:29 <Perlitasuleiman Strickland CNP - Last Filed: 11/07/21 19:20> Source: patient <Perlita Gutiérrez JAMILAH Strickland - Last Filed: 11/07/21 19:20> Limitations: language barrier ( [place]ian-speaking spanish medical interpreter) <Perlita Gutiérrez JAMILAH Strickland - Last Filed: 11/07/21 19:20> History of Present Illness HPI Narrative: patient presents emergency department for evaluation of right hip pain. He reports a mechanical fall 1 week ago, slipped landing on the right side. Denies any head strike or loss of consciousness. Pain has been increasingly worse over the past week. It is exacerbated with ambulation/ weight-bearing. Denies any numbness or tingling to the extremity. He has trialed Tylenol without significant improvement. 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 <Perlita Girardga Stricklnad CNP - Last Filed: 11/07/21 19:20> Related Data Home Medications: Home Medications Medication Instructions Recorded Confirmed aspirin 81 mg tablet,delayed 81 mg PO DAILY 03/05/20 08/04/21 release (Adult Low Dose Aspirin) cyclobenzaprine 5 mg tablet 5 mg PO TID PRN 03/05/20 08/04/21 diphenhydramine HCl 25 mg tablet 25 mg PO Q6H PRN 03/05/20 08/04/21 (Banophen) docusate sodium 100 mg tablet (DOK) 100 mg PO BID 03/05/20 08/04/21 fluoxetine 20 mg capsule 20 mg PO DAILY 03/05/20 08/04/21 gabapentin 600 mg tablet 600 mg PO TID 03/05/20 08/04/21 lisinopril 40 mg tablet 40 mg PO DAILY 03/05/20 08/04/21 metoprolol tartrate 100 mg tablet 100 mg PO BID 03/05/20 08/04/21 simvastatin 10 mg tablet 10 mg PO DAILY 03/05/20 08/04/21 trazodone 150 mg tablet 150 mg PO BEDTIME PRN 03/05/20 08/04/21 amlodipine 5 mg tablet 5 mg PO DAILY 08/04/21 08/04/21 chlorthalidone 25 mg tablet 12.5 mg PO QAM 08/04/21 08/04/21 ketorolac 0.5 % eye drops 0 drp ophthalmic (eye) 08/04/21 08/04/21 Previous Rx's Medication Instructions Recorded lorazepam 1 mg tablet (Ativan) 1 mg PO DAILY PRN anxiety #10 tabs 02/12/20 amlodipine 10 mg tablet 10 mg PO DAILY #90 tabs 03/05/20 peg 3350-electrolytes 236 240 ml PO Q10M 1 day #4,000 mL 07/28/21 gram-22.74 gram-6.74 gram-5.86 gram solution (Golytely) finasteride 5 mg tablet 5 mg PO DAILY 90 days #90 tabs 08/04/21 tamsulosin 0.4 mg capsule 0.4 mg PO DAILY 90 days #90 caps 08/04/21 <Perlita Strickland CNP - Last Filed: 11/07/21 19:20> Allergies/Adverse Reactions: Allergies Allergy/AdvReac Type Severity Reaction Status Date / Time simvastatin AdvReac Intermediate Constipatio Verified 08/04/21 13:32 n <Perlita Strickland CNP - Last Filed: 11/07/21 19:20> Review of Systems Review of Systems: Constitutional: No weight loss, fever, chills, weakness or fatigue. Skin: No rash or itching. Cardiovascular: No chest pain, chest pressure or chest discomfort. No palpitations or pedal edema. Respiratory: No shortness of breath, cough or sputum production. Gastrointestinal: No anorexia, nausea, vomiting or diarrhea. No abdominal pain or blood in stool. Genitourinary: No burning micturition. No urinary frequency or incontinence. Musculoskeletal: Hip pain as noted in HPI Psychiatric: No depression or anxiety. <Perlita Strickland CNP - Last Filed: 11/07/21 19:20> Yes all other systems are reviewed and are negative <Perlita Strickland CNP - Last Filed: 11/07/21 19:20> [facility] Past Medical History Attestation statement: The following information was validated with the patient. <Perilta Strickland CNP - Last Filed: 11/07/21 19:20> Source: old records reviewed <Perlita Strickland CNP - Last Filed: 11/07/21 19:20> Medical History: Medical History Back pain Depressed Essential hypertension High cholesterol HTN (hypertension) Stroke <Perlita Strickland CNP - Last Filed: 11/07/21 19:20> Surgical History: Surgical History History of colonoscopy <Perlita Strickland CNP - Last Filed: 11/07/21 19:20> Family History Family History: Family History Father Cardiac pacemaker Mother No problems noted. <Perlita Strickland CNP - Last Filed: 11/07/21 19:20> Social History Social History: Social History Substance Use Type: Marijuana Advance Directives: No Advance Directives Information Provided: No <Perlita Strickland CNP - Last Filed: 11/07/21 19:20> Physical Exam Vital Signs: Vital Signs: Last Vital Signs Temp 97.6 F 11/07/21 15:29 Pulse 51 11/07/21 18:18 Resp 12 11/07/21 18:18 BP 149/93 H 11/07/21 18:18 Pulse Ox 97 11/07/21 18:18 O2 Del Method 11/07/21 18:18 BMI result Body Mass Index 32.1 <Perlita Strickland CNP - Last Filed: 11/07/21 19:20> Vital Signs: Last Vital Signs Temp 97.6 F 11/07/21 15:29 Pulse 51 11/07/21 18:18 Resp 12 11/07/21 18:18 BP 149/93 H 11/07/21 18:18 Pulse Ox 97 11/07/21 18:18 O2 Del Method 11/07/21 18:18 BMI result Body Mass Index 32.1 <NAEEM Guerrero - Last Filed: 11/07/21 20:26> Appearance: Alert.?Oriented to person, place and time. No acute distress.?Normal affect. Eyes: Pupils equal, round and reactive to light.? ENT: Pharynx normal.?? Neck: Normal inspection.? Neck supple.?? CVS: Heart sounds normal. Normal heart rate and rhythm.? Pulses normal.?? Respiratory: No respiratory distress.? Lung sounds clear to auscultation bilaterally?? Abdomen: Soft and non-tender. Skin: Skin warm and dry.? Normal skin color.? Extremities: No lower extremity edema.? No calf ttp. decreased AROM to left hip. 2+ DP/PT pulse bilaterally. No erythema, warmth, rash, swelling. Neuro: Moves all extremities spontaneously. Sensation intact bilaterally. no motor deficits. Ambulates with normal steady gait. <Perlita Strickalnd CNP - Last Filed: 11/07/21 19:20> Course Course Course Narrative: patient is a 71-year-old male presents emergency department for evaluation of traumatic right hip pain. History of prior prosthetic from 10 years ago. Neurologically intact distally. Not consistent with septic arthritis. Ambulatory with antalgic gait and use of cane. XR reveals abnormal appearance to the femoral component of the prosthesis hardware failure/ fracture cannot be excluded. spoke with Orthopedics Aldo Holley, recommendation to obtain CT scan of the hip for further evaluation. <Perlita Strickland CNP - Last Filed: 11/07/21 19:20> Reevaluation(s) Reevaluation #1: Patient signed out to Josiane Ratliff, pending results of CT scan. <Perlita Strickland CNP - Last Filed: 11/07/21 19:20> Time: 19:15 <Perlita Strickland CNP - Last Filed: 11/07/21 19:20> Reevaluation #2: - CT scan of right hip revealed hardware failure. Fracture of the right for moral prosthesis at the head and neck junction. However there is no dislocation. - therefore I discussed this case with Karthik Collier PA-C who has also discussed this case with Dr. Bowie and they are recommending admission. I tried to admit to the hospitalist service although the hospitalist has a lot a critical patient at this time and he reported that he will consult on the patient. Therefore Orthopedics will admit at this time. - will obtain labs, chest x-ray, EKG for medical clearance. I placed an order for oxycodone every 6 hours patient understands and is agreeable to this plan. <NAEEM Guerrero - Last Filed: 11/07/21 20:26> Time: 20: <NAEEM Guerrero - Last Filed: 11/07/21 20:26> MDM - Extremity Injury (Lower) Medical Records Attestation: I reviewed the patient's medical records. <Perlita Strickland CNP - Last Filed: 11/07/21 19:20> Imaging Data XR hip: Attestation: I personally reviewed and interpreted this imaging study as follows: <NAEEM Guerrero - Last Filed: 11/07/21 20:26> Radiologist's impression: XR/XR hip RT w PEL1V IMPRESSION: Abnormal appearance to the femoral component of the prosthesis. Hardware failure/fracture through the hardware could not be excluded when compared to previous dated 01/16/2018. Correlation needs to be made clinically. No dislocation of the ball of the hip from the acetabular component is seen here. <Perlita Strickland CNP - Last Filed: 11/07/21 19:20> CT scan of right hip without contrast: Attestation: I personally reviewed and interpreted this imaging study as follows: <NAEEM Guerrero - Last Filed: 11/07/21 20:26> Radiologist's impression: FINDINGS: There is a fracture right femoral prosthesis at the head and neck junction when compared to previous pelvic x-ray 01/16/2018. The acetabular prosthesis is intact. The periprostatic bone is intact with no visible fracture. No loosening of the femoral prosthetic stem. The soft tissues are normal. Partially visualized is L4, L5 pedicular screws and interconnecting rods for lower lumbar spine fusion. CT/CT hip RT wo IV con IMPRESSION: Hardware failure. Fracture of the right femoral prosthesis at the head and neck junction. However there is no dislocation. The acetabular prosthesis is normal. No periprosthetic fracture seen.? <NAEEM Guerrero - Last Filed: 11/07/21 20:26> Critical Care Time Critical Care Time Critical Care Time: Yes <NAEEM Guerrero - Last Filed: 11/07/21 20:26> Total Critical Care Time: 60 <NAEEM Guerrero - Last Filed: 11/07/21 20:26> Attestation: I personally attest to this time spent taking care of the patient by Serina Ratliff PA-C <NAEEM Guerrero - Last Filed: 11/07/21 20:26> Discharge Plan Discharge Clinical Impression: Acute hip pain, Prosthetic hip implant failure, Fall <Perlita Strickland CNP - Last Filed: 11/07/21 19:20> Patient Disposition: Admitted As Inpatient <Perlita Strickland CNP - Last Filed: 11/07/21 19:20> Instructions: Heat Pack Application (ED), Hip Pain (ED) <Perlita Strickland CNP - Last Filed: 11/07/21 19:20> Additional Instructions: You can take ibuprofen 200 mg, 3 tablets (600mg) every 6-8 hours as needed for pain, in addition to Tylenol 500 mg, 2 tablets (1,000mg) every 4-6 hours as needed for pain, but not to exceed 3 doses daily (3,000mg).? Return to the emergency department with any new or worsening symptoms or concerns <Perlita Strickland CNP - Last Filed: 11/07/21 19:20> Prescriptions: No Action lorazepam [Ativan] 1 mg tablet 1 mg PO DAILY PRN (Reason: anxiety) Qty: 10 0RF aspirin [Adult Low Dose Aspirin] 81 mg tablet,delayed release (DR/EC) 81 mg PO DAILY docusate sodium [DOK] 100 mg tablet 100 mg PO BID fluoxetine 20 mg capsule 20 mg PO DAILY gabapentin 600 mg tablet 600 mg PO TID lisinopril 40 mg tablet 40 mg PO DAILY metoprolol tartrate 100 mg tablet 100 mg PO BID simvastatin 10 mg tablet 10 mg PO DAILY trazodone 150 mg tablet 150 mg PO BEDTIME PRN cyclobenzaprine 5 mg tablet 5 mg PO TID PRN diphenhydramine HCl [Banophen] 25 mg tablet 25 mg PO Q6H PRN amlodipine 10 mg tablet 10 mg PO DAILY Qty: 90 4RF ketorolac 0.5 % drops 0 drp ophthalmic (eye) amlodipine 5 mg tablet 5 mg PO DAILY chlorthalidone 25 mg tablet 12.5 mg PO QAM finasteride 5 mg tablet 5 mg PO DAILY 90 Days Qty: 90 2RF tamsulosin 0.4 mg capsule 0.4 mg PO DAILY 90 Days Qty: 90 2RF peg 3350-electrolytes [Golytely] 236-22.74-6.74 -5.86 gram recon soln 240 ml PO Q10M 1 Days Qty: 4000 0RF Rx Instructions: until fecal effluent is clear; do not exceed a total volume of 2,000 mL <Perlita Strickland CNP - Last Filed: 11/07/21 19:20>
[2021-11-07 18:18] VITALS: BP 149/93; PULSE 51; RESP 12; O2SAT 97
--- NOTE | 2021-11-07 20:09 | ECG_ITS ---
Test Reason : FALL Blood Pressure : / mmHG Vent. Rate : 051 BPM Atrial Rate : 051 BPM P-R Int : 164 ms QRS Dur : 092 ms QT Int : 448 ms P-R-T Axes : 061 034 049 degrees QTc Int : 412 ms Sinus bradycardia Otherwise normal ECG When compared with ECG of 13-FEB-2020 16:32, No significant change was found Referred By: Serina Ratliff Electronically Signed By:ZAYNAB AHUMADA
[2021-11-07 20:58] LABS: MANUAL DIFF FLAG NO
[2021-11-07 21:01] LABS: Basophils Absolute Auto 0.1 X10*3/uL (0.0-0.2); Basophils Percent Auto 0.6 % (0-2); Eosinophils Absolute Auto 0.8 X10*3/uL (0.0-0.4); Eosinophils Percent Auto 8.3 % (0-4); Hematocrit 49.3 % (42.0-52.0); Hemoglobin 16.9 g/dl (14.0-18.0); Imm Gran Abs Auto 0.02 X10*3/uL (0.00-0.03); Imm Gran Pct Auto 0.2 % (0.0-0.4); Lymphocytes Absolute Auto 2.2 X10*3/uL (1.2-4.9); Lymphocytes Percent Auto 22.9 % (20-40); Mean Corpuscular HGB Conc 34.3 g/dl (31.0-36.0); Mean Corpuscular Hemoglobin 32.2 pg (27.0-33.0); Mean Corpuscular Volume 93.9 fL (80.0-98.0); Mean Platelet Volume 9.6 fL (9.4-12.4); Monocytes Absolute Auto 0.8 X10*3/uL (0.1-1.2); Monocytes Percent Auto 8.4 % (2-11); Neutrophils Absolute Auto 5.8 x10*3/uL (2.0-8.3); Neutrophils Percent Auto 59.6 % (45-73); Platelet Count 282 X10*3/uL (160-400); Red Blood Count 5.25 X10*6/uL (4.60-5.80); White Blood Count 9.7 X10*3/uL (4.8-10.8)
[2021-11-07] MEDS: oxyCODONE HCl ER 10 MG TAB.ER.12H PO (21:03)
[2021-11-07] MEDS: oxyCODONE HCl Immed Release 5 MG TABLET PO (21:03)
[2021-11-07] MEDS: Lactated Ringers 1,000 ML 100 ML IVCONT (21:05)
[2021-11-07 21:13] LABS: Prothrombin Time 11.2 SEC (10.0-13.1)
[2021-11-07 21:16] LABS: Alanine Aminotransferase 40 U/L (0-40); Albumin Level 4.8 g/dL (3.5-5.0); Alkaline Phosphatase 50 U/L (39-117); Anion Gap 19 (12-20); Aspartate Amino Transferase 28 U/L (5-37); Bilirubin Total 0.6 mg/dL (0.0-1.0); Blood Urea Nitrogen 19 mg/dL (9-16); COVID-19 Test Negative (Negative); Calcium 9.6 mg/dL (8.4-10.2); Carbon Dioxide 29 mmol/L (22-29); Chloride 100 mmol/L (96-108); Creatinine Clr Calc Pharmacy 68.5; Estimated Glomerular Filt Rate > 60; Glucose Random 88 mg/dL (60-115); IDNOW Serial# 16C4AD1C; Magnesium 2.2 mg/dL (1.6-2.6); Partial Thromboplastin Time 32.7 SEC (26.0-36.4); Potassium 4.6 mmol/L (3.3-5.1); Sodium 143 mmol/L (135-145); Total Protein 8.1 g/dL (6.5-8.0)
[2021-11-07 21:24] VITALS: BP 164/88; PULSE 51; O2SAT 98
[2021-11-08 01:52] VITALS: BP 140/89; PULSE 52; O2SAT 94
--- NOTE | 2021-11-08 02:34 | PC.NURSE ---
drum builder spoke with hospitalist regarding pt's trazadone, verbal order obtained for 50mg Trazadone PO x1
[2021-11-08] MEDS: oxyCODONE HCl Immed Release 5 MG TABLET PO ×5 (02:48→21:32)
[2021-11-08] MEDS: traZODone HCL 50 MG TABLET PO (02:49)
[2021-11-08 05:00] VITALS: BP 121/63; PULSE 51; O2SAT 94
[2021-11-08 08:09] LABS: MANUAL DIFF FLAG NO
--- NOTE | 2021-11-08 08:10 | HO.PM.IMCN ---
History of Present Illness Data of Consult Service Date: 11/08/21 Requesting physician: Lawson Bowie Primary Care Provider: Anders Cruz MD HPI 71-year-old man presented to the ER after a fall approximately a week ago. He reported that he slipped on some water in his kitchen and fell to the ground. He was able to crawl to a stable object to get himself back up he reported that he stayed home for about a week to try to see if things got better however his pain continued to worsen and he decided to come to the ER. He was admitted by Orthopedic surgery and was found to have hardware failure with fracture of the right femoral prosthesis at the head and neck junction without dislocation. His labs in the ER within acceptable limits, vital signs stable, he is hemodynamically stable. His pain is controlled at this time. Medical consultation was placed Review of Systems Review of Systems: Denies any recent fever chills or decrease in appetite respiratory denies any shortness of breath coverage production cardiovascular denies chest pain gastrointestinal denies any dysphagia abdominal pain nausea vomiting or diarrhea genitourinary denies any dysuria frequency or hematuria musculoskeletal see above neuropsych denies any weakness or seizures all other systems reviewed are negative [facility] Medical History (Updated 11/07/21 @ 20:26 by NAEME Guerrero) Back pain Depressed Essential hypertension High cholesterol HTN (hypertension) Stroke Family History Father Cardiac pacemaker Mother No problems noted. Surgical History (Updated 11/08/21 @ 10:36 by Floridalma Shelton NP) History of colonoscopy History of hip surgery Social History Substance Use Type: Marijuana Advance Directives: No Advance Directives Information Provided: No Meds Allergies Allergy/AdvReac Type Severity Reaction Status Date / Time simvastatin AdvReac Intermediate Constipatio Verified 08/04/21 13:32 n Active Medications: Current Medications Acetaminophen (Acetaminophen 325 Mg Tablet) 650 mg PO Q6H PRN PRN Reason: Pain, Mild (Pain Scale 1-3) Docusate Sodium (Docusate Sodium 100 Mg Capsule) 100 mg PO BID SUJIT Last Admin: 11/07/21 21:05 Dose: Not Given Hydromorphone HCl (Hydromorphone Hcl 0.5 Mg/0.5 Ml Syringe) 0.5 mg IVPUSH Q4H PRN; Protocol PRN Reason: Pain, Severe (Pain Scale 7-10) Lactated Ringer's (Lr) 1,000 mls @ 100 mls/hr IVCONT .Q10H [facility] Last Infusion: 11/08/21 07:59 Dose: Infused Metoprolol Tartrate (Metoprolol Tartrate 100 Mg Tablet) 100 mg PO BID [facility]; Protocol Ondansetron HCl (Ondansetron Hcl 4 Mg/2 Ml Vial) 4 mg IVPUSH Q8H PRN PRN Reason: Nausea and Vomiting Oxycodone HCl (Oxycodone Hcl Immed Release 5 Mg Tablet) 5 mg PO Q6H [facility] Last Admin: 11/08/21 02:48 Dose: 5 mg Oxycodone HCl (Oxycodone Hcl Immed Release 5 Mg Tablet) 5 mg PO Q4H PRN PRN Reason: Pain, Moderate (Pain Scale 4-6 Last Admin: 11/08/21 07:14 Dose: 5 mg Oxycodone HCl (Oxycodone Hcl Er 10 Mg Tab.Er.12h) 10 mg PO BID [facility] Last Admin: 11/07/21 21:03 Dose: 10 mg Sodium Chloride (0.9 % Sodium Chloride Flush 3 Ml Syringe) [facility] Last Admin: 11/08/21 00:17 Dose: Not Given Home Medications Medication Instructions Recorded Confirmed Last Taken Type aspirin 81 mg tablet,delayed 81 mg PO DAILY 03/05/20 11/08/21 11/07/21 History release (Adult Low Dose Aspirin) docusate sodium 100 mg tablet (DOK) 100 mg PO BID 03/05/20 11/08/21 11/07/21 History fluoxetine 20 mg capsule 20 mg PO DAILY 03/05/20 11/08/21 11/07/21 History gabapentin 600 mg tablet 600 mg PO TID 03/05/20 11/08/21 11/07/21 History lisinopril 40 mg tablet 40 mg PO DAILY 03/05/20 08/04/21 Unknown History metoprolol tartrate 100 mg tablet 100 mg PO BID 03/05/20 11/08/21 11/07/21 History trazodone 150 mg tablet 150 mg PO BEDTIME PRN Insomnia 03/05/20 11/08/21 Unknown History amlodipine 5 mg tablet 5 mg PO DAILY 08/04/21 11/08/21 11/07/21 History chlorthalidone 25 mg tablet 12.5 mg PO DAILY 08/04/21 11/08/21 11/07/21 History diphenhydramine HCl 25 mg capsule 1 cap PO Q8H PRN Itching 11/08/21 11/08/21 Unknown History (Banophen) simvastatin 20 mg tablet 1 tab PO BEDTIME 11/08/21 11/08/21 11/07/21 History timolol maleate 0.5 % eye drops 1 drp ophthalmic (eye) DAILY 11/08/21 11/08/21 11/07/21 History Physical Exam Vital Signs and Narrative: Vital Signs: Last Vital Signs Temp 97.6 F 11/07/21 15:29 Pulse 51 11/08/21 05:00 Resp 12 11/07/21 18:18 BP 121/63 11/08/21 05:00 Pulse Ox 94 11/08/21 05:00 O2 Del Method 11/08/21 05:00 BMI result Body Mass Index 32.1 Appearing in no acute distress head is normocephalic atraumatic eyes pupils are PERRLA sclera is anicteric mouth throat mucous membranes are intact and moist neck is supple no lymphadenopathy, no JVD noted lung sounds are clear to auscultation heart regular rate rhythm, clear S1, S2 positive bowel sounds, abdomen is soft, nontender neuro patient is alert x3, no focal deficits Results Labs CBC and Chem 7: 11/08/21 07:38 11/08/21 07:38 Labs: Laboratory Results - last 24 hr 11/07/21 11/07/21 11/07/21 20:34 20:34 20:34 MCV 93.9 MCH 32.2 MCHC 34.3 RDW 12.0 Plt Count 282 MPV 9.6 Immature Gran % (Auto) 0.2 Neut % (Auto) 59.6 Lymph % (Auto) 22.9 [place] % (Auto) 8.4 Eos % (Auto) 8.3 H Baso % (Auto) 0.6 Lymph # (Auto) 2.2 [place] # (Auto) 0.8 Eos # (Auto) 0.8 H Baso # (Auto) 0.1 Abs Immat Gran (auto) 0.02 Absolute Neuts (auto) 5.8 Absolute Nucleated RBC 0.000 Nucleated RBC % (auto) 0.0 PT 11.2 INR 1.0 APTT Anion Gap 19 Estim Creat Clear Calc 68.5 Estimated GFR > 60 Random Glucose 88 Calcium 9.6 D Magnesium 2.2 Total Bilirubin 0.6 AST 28 ALT 40 Alkaline Phosphatase 50 D Total Protein 8.1 H Albumin 4.8 COVID-19 ([facility]) COVID-19 Clin Com Blood Type Antibody Screen 11/07/21 11/07/21 11/07/21 20:34 20:34 20:51 MCV MCH MCHC RDW Plt Count MPV Immature Gran % (Auto) Neut % (Auto) Lymph % (Auto) [place] % (Auto) Eos % (Auto) Baso % (Auto) Lymph # (Auto) [place] # (Auto) Eos # (Auto) Baso # (Auto) Abs Immat Gran (auto) Absolute Neuts (auto) Absolute Nucleated RBC Nucleated RBC % (auto) PT INR APTT 32.7 Anion Gap Estim Creat Clear Calc Estimated GFR Random Glucose Calcium Magnesium Total Bilirubin AST ALT Alkaline Phosphatase Total Protein Albumin COVID-19 ([facility]) Negative COVID-19 Clin Com See Note Blood Type O Negative Antibody Screen NEGATIVE Imaging Radiologist's Impressions: Impressions Hip/Pelvis X-Ray 11/07/21 15:55 IMPRESSION: Abnormal appearance to the femoral component of the prosthesis. Hardware failure/fracture through the hardware could not be excluded when compared to previous dated 01/16/2018. Correlation needs to be made clinically. No dislocation of the ball of the hip from the acetabular component is seen here. Hip CT 11/07/21 18:18 IMPRESSION: Hardware failure. Fracture of the right femoral prosthesis at the head and neck junction. However there is no dislocation. The acetabular prosthesis is normal. No periprosthetic fracture seen. Chest X-Ray 11/07/21 20:15 IMPRESSION: No active cardiopulmonary disease. Assessment and Plan (1) Acute hip pain: Status: Acute Plan 71-year-old man admitted by Orthopedic surgery after having a fall 1 week ago with continued pain discomfort and found to have hardware failure with fracture of the right femoral prosthesis at the head and neck junction. Hardware failure after a fall Management as per orthopedic team Pain management Hold aspirin Keep NPO for now Hypertension. Stable blood pressure May continue amlodipine, chlorthalidone, beta-bernabe BPH Continue medications Hyperlipidemia Hold statin for now Mental health Continue home medications DVT prophylaxis as per surgical team Attending Dr. Reyes Full code
[2021-11-08 08:14] LABS: Basophils Absolute Auto 0.1 X10*3/uL (0.0-0.2); Basophils Percent Auto 0.9 % (0-2); Hematocrit 46.2 % (42.0-52.0); Hemoglobin 15.8 g/dl (14.0-18.0); Imm Gran Abs Auto 0.02 X10*3/uL (0.00-0.03); Imm Gran Pct Auto 0.2 % (0.0-0.4); Lymphocytes Absolute Auto 2.6 X10*3/uL (1.2-4.9); Lymphocytes Percent Auto 30.7 % (20-40); Mean Corpuscular HGB Conc 34.2 g/dl (31.0-36.0); Mean Corpuscular Volume 93.5 fL (80.0-98.0); Monocytes Absolute Auto 0.9 X10*3/uL (0.1-1.2); Monocytes Percent Auto 9.9 % (2-11); Neutrophils Percent Auto 46.3 % (45-73); Platelet Count 194 X10*3/uL (160-400); Red Blood Count 4.94 X10*6/uL (4.60-5.80); Red Cell Distribution Width 12.2 % (11.0-16.0); White Blood Count 8.6 X10*3/uL (4.8-10.8)
[2021-11-08] MEDS: Lactated Ringers 1,000 ML 100 ML IVCONT ×2 (08:15→17:35)
[2021-11-08] MEDS: oxyCODONE HCl ER 10 MG TAB.ER.12H PO ×2 (08:15→21:32)
[2021-11-08] MEDS: 0.9 % Sodium Chloride Flush 3 ML SYRINGE IVFLUSH ×2 (08:15→17:36)
[2021-11-08] MEDS: Docusate Sodium 100 MG CAPSULE PO ×3 (08:16→21:32)
[2021-11-08 08:35] LABS: Anion Gap 17 (12-20); Blood Urea Nitrogen 16 mg/dL (9-16); Carbon Dioxide 24 mmol/L (22-29); Chloride 104 mmol/L (96-108); Creatinine Clr Calc Pharmacy 93.9; Estimated Glomerular Filt Rate > 60; Glucose Fasting 83 mg/dL (60-99); Potassium 4.1 mmol/L (3.3-5.1); Sodium 141 mmol/L (135-145)
[2021-11-08 08:45] LABS: Calcium 8.7 mg/dL (8.4-10.2)
--- NOTE | 2021-11-08 09:03 | PHA.MEDREC ---
Pharmacy Consult ? Medication Reconciliation Pharmacy has completed the medication reconciliation. utilized staff interpreter services. Patient not a great historian of medications. Used claim history as cross-reference to verify meds. Patient is unsure whether they are taking lisinopril 40mg po daily, will leave a note for Tuesday [facility] to follow up with CP to verify it was in [facility]. Patient confirmed that every medication in 10/30/21 [facility] is being taken as directed.
[2021-11-08 11:49] LABS: Appearance Urine Clear; Color Urine Yellow; Glucose Urine UA Negative (Negative); Leukocyte Esterase Urine Trace (Negative); Nitrite Urine Negative (Negative); Specific Gravity - Urine 1.025 (1.005-1.025); UMIC TRIGGER UACC YES; Urine Blood Negative (Negative); Urine Ketones Negative (Negative); Urine Protein Negative (Neg-Trace)
[2021-11-08 11:54] LABS: Bacteria Urine None Seen (None Seen); Hyaline Casts Urine 0-2 /LPF (0-2); RBC Urine 0-2 /HPF (0-2); Squamous Epithelial Cell Urine 0-2 /HPF (0-2); WBC Urine 0-5 /HPF (0-5)
[2021-11-08] MEDS: Gabapentin 600 MG TABLET PO ×2 (14:50→21:33)
--- NOTE | 2021-11-08 16:26 | P.HPOP_ITS ---
History of Present Illness History of Present Illness Date of Service: 11/15/21 Chief complaint: Right Hip prosthetic failure Narrative: Maverick Shelton is a 71 year old male who presents to the ER due to worsening right hip pain and difficult with ambulation. He states about a week ago he fell. He was able to ambulate but due to worsening pain he presented to the ER for workup. Xrays and CT of the right hip showed a fracture throught the neck of the implant. No dislocations. He was admitted to the orthopedic service for further workup. Review of Systems Review of Systems: per [facility] Past Medical History Medical History Back pain Depressed Essential hypertension High cholesterol HTN (hypertension) Stroke Family History Family History Father Cardiac pacemaker Mother No problems noted. Surgical History Surgical History History of colonoscopy History of hip surgery Social History Social History Household Members: None Housing: Apartment Do you presently have visiting nurse or other home services: No Patient Tobacco Use Status: Former Tobacco user Quit Date: smoke free for over 40 years Tobacco use type: Cigarette e-Cigarette/Vaping Use: Never Used Substance Use Type: Marijuana service: No Current occupational status: disabled Meds Allergies Allergy/AdvReac Type Severity Reaction Status Date / Time simvastatin AdvReac Intermediate Constipatio Verified 11/10/21 10:45 n Active Medications: Current Medications Acetaminophen (Acetaminophen 325 Mg Tablet) 650 mg PO Q6H PRN PRN Reason: Pain, Mild (Pain Scale 1-3) Amlodipine Besylate (Amlodipine Besylate 5 Mg Tablet) 5 mg PO DAILY [facility]; Protocol Docusate Sodium (Docusate Sodium 100 Mg Capsule) 100 mg PO BID [facility] Last Admin: 11/08/21 08:16 Dose: 100 mg Docusate Sodium (Docusate Sodium 100 Mg Capsule) 100 mg PO BID [facility] Finasteride (Finasteride 5 Mg Tablet) 5 mg PO DAILY [facility] Fluoxetine HCl (Fluoxetine Hcl 20 Mg Capsule) 20 mg PO DAILY [facility] Gabapentin (Gabapentin 600 Mg Tablet) 600 mg PO TID [facility] Last Admin: 11/08/21 14:50 Dose: 600 mg Hydrochlorothiazide (Hydrochlorothiazide 12.5 Mg Tablet) 12.5 mg PO DAILY [facility] Hydromorphone HCl (Hydromorphone Hcl 0.5 Mg/0.5 Ml Syringe) 0.5 mg IVPUSH Q4H PRN; Protocol PRN Reason: Pain, Severe (Pain Scale 7-10) Lactated Ringer's (Lr) 1,000 mls @ 100 mls/hr IVCONT .Q10H [facility] Last Admin: 11/08/21 08:15 Dose: 100 mls/hr Metoprolol Tartrate (Metoprolol Tartrate 100 Mg Tablet) 100 mg PO BID [facility]; Protocol Ondansetron HCl (Ondansetron Hcl 4 Mg/2 Ml Vial) 4 mg IVPUSH Q8H PRN PRN Reason: Nausea and Vomiting Oxycodone HCl (Oxycodone Hcl Immed Release 5 Mg Tablet) 5 mg PO Q6H [facility] Last Admin: 11/08/21 14:50 Dose: 5 mg Oxycodone HCl (Oxycodone Hcl Immed Release 5 Mg Tablet) 5 mg PO Q4H PRN PRN Reason: Pain, Moderate (Pain Scale 4-6 Last Admin: 11/08/21 07:14 Dose: 5 mg Oxycodone HCl (Oxycodone Hcl Er 10 Mg Tab.Er.12h) 10 mg PO BID [facility] Last Admin: 11/08/21 08:15 Dose: 10 mg Pharmacy Consult (Consult Rx Perform Med Rec) 1 each MISCELLANE ONCE PRN PRN Reason: Consult order Sodium Chloride (0.9 % Sodium Chloride Flush 3 Ml Syringe) 3 ml IVFLUSH QSHIFT [facility] Last Admin: 11/08/21 08:15 Dose: 3 ml Tamsulosin HCl (Tamsulosin Hcl 0.4 Mg Capsule) 0.4 mg PO DAILY [facility] Timolol Maleate (Timolol Maleate 0.5 % Oph Jessica 5 Ml Drbtl) 1 drop EYE-BOTH DAILY [facility] Trazodone HCl (Trazodone Hcl 50 Mg Tablet) 150 mg PO BEDTIME PRN PRN Reason: Insomnia Home Medications Medication Instructions Recorded Confirmed Last Taken Type docusate sodium 100 mg tablet (DOK) 100 mg PO BID 03/05/20 11/08/21 11/07/21 History fluoxetine 20 mg capsule 20 mg PO DAILY 03/05/20 11/08/21 11/07/21 History gabapentin 600 mg tablet 600 mg PO TID 03/05/20 11/08/21 11/07/21 History lisinopril 40 mg tablet 40 mg PO DAILY 03/05/20 11/09/21 Unknown History metoprolol tartrate 100 mg tablet 100 mg PO BID 03/05/20 11/08/21 11/07/21 History trazodone 150 mg tablet 150 mg PO BEDTIME PRN Insomnia 03/05/20 11/08/21 Unknown History amlodipine 5 mg tablet 5 mg PO DAILY 08/04/21 11/08/21 11/07/21 History chlorthalidone 25 mg tablet 12.5 mg PO DAILY 08/04/21 11/08/21 11/07/21 History diphenhydramine HCl 25 mg capsule 1 cap PO Q8H PRN Itching 11/08/21 11/08/21 Unknown History (Banophen) simvastatin 20 mg tablet 1 tab PO BEDTIME 11/08/21 11/08/21 11/07/21 History timolol maleate 0.5 % eye drops 1 drp ophthalmic (eye) DAILY 11/08/21 11/08/21 11/07/21 History Physical Exam Vital Signs: Vital Signs: Last Vital Signs Temp 97.6 F 11/07/21 15:29 Pulse 51 11/08/21 05:00 Resp 12 11/07/21 18:18 BP 121/63 11/08/21 05:00 Pulse Ox 94 11/08/21 05:00 O2 Del Method 11/08/21 05:00 BMI result Body Mass Index 32.1 Const: General: cooperative and no acute distress Orientation/consciousness: patient oriented x3 Resp: Effort & Inspection: normal respiratory effort and able to speak in complete sentences Cardio: Peripheral pulses: Peripheral pulses 2+ throughout Neuro: General: patient oriented x3 Extrem: Other: Pain in the right hip with log roll, no open wounds. diffculty with SLR. Results Labs Result Diagrams: 11/12/21 05:14 11/12/21 05:14 Labs: Abnormal lab results 11/07/21 11/07/21 11/08/21 Range/Units 20:34 20:34 07:38 Eos % (Auto) 8.3 H 12.0 H (0-4) % Eos # (Auto) 0.8 H 1.0 H (0.0-0.4) X10*3/uL BUN 19 H (9-16) mg/dL Total Protein 8.1 H (6.5-8.0) g/dL Ur Leukocyte Esterase (Negative) 11/08/21 Range/Units 11:40 Eos % (Auto) (0-4) % Eos # (Auto) (0.0-0.4) X10*3/uL BUN (9-16) mg/dL Total Protein (6.5-8.0) g/dL Ur Leukocyte Esterase Trace H (Negative) H & H 11/07/21 11/08/21 Range/Units 20:34 07:38 Hgb 16.9 15.8 (14.0-18.0) g/dl Hct 49.3 46.2 (42.0-52.0) % Coagulation 11/07/21 Range/Units 20:34 INR 1.0 (0.9-1.1) All other labs normal. 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 I explained the procedure in detail along with the length of recovery and rehab course. I explained the risk, benefits and alternatives. Risk including, but not limited to infection, blood clots, bleeding, non union or malunion and nerve/tissue damage to surrounding areas. I answered all their questions and with their understanding they have consented to move forward with Revision Right [facility]AY . The patient will be T&S, med clearance obtained and NPO after midnight 11/09/21 for surgery on 11/10/21. Quality Stroke Does the patient have a stroke diagnosis?: No VTE Prior VTE?: No VTE Risk Level:: Surgical - very high VTE Device Contraindication: N/A - Device Ordered VTE Drug Contraindication: N/A - Med Ordered Procedures Date of Service Date of Service: 11/08/21
[2021-11-08] MEDS: Metoprolol Tartrate 100 MG TABLET PO (21:32)
[2021-11-08] MEDS: traZODone HCL 50 MG TABLET 150 MG PO (21:32)
[2021-11-09] MEDS: Lactated Ringers 1,000 ML 100 ML IVCONT ×2 (03:07→12:19)
[2021-11-09] MEDS: oxyCODONE HCl Immed Release 5 MG TABLET PO ×4 (03:07→21:51)
[2021-11-09 03:34] VITALS: BP 152/72; PULSE 48; O2SAT 94
[2021-11-09 04:49] LABS: MANUAL DIFF FLAG NO
[2021-11-09 04:50] LABS: Basophils Absolute Auto 0.1 X10*3/uL (0.0-0.2); Basophils Percent Auto 0.5 % (0-2); Eosinophils Percent Auto 10.6 % (0-4); Hematocrit 45.2 % (42.0-52.0); Hemoglobin 15.9 g/dl (14.0-18.0); Imm Gran Abs Auto 0.03 X10*3/uL (0.00-0.03); Imm Gran Pct Auto 0.3 % (0.0-0.4); Lymphocytes Absolute Auto 2.1 X10*3/uL (1.2-4.9); Lymphocytes Percent Auto 22.7 % (20-40); Mean Corpuscular HGB Conc 35.2 g/dl (31.0-36.0); Mean Corpuscular Hemoglobin 32.4 pg (27.0-33.0); Mean Corpuscular Volume 92.2 fL (80.0-98.0); Mean Platelet Volume 9.4 fL (9.4-12.4); Monocytes Absolute Auto 0.8 X10*3/uL (0.1-1.2); Monocytes Percent Auto 9.1 % (2-11); Neutrophils Absolute Auto 5.2 x10*3/uL (2.0-8.3); Neutrophils Percent Auto 56.8 % (45-73); Platelet Count 229 X10*3/uL (160-400); Red Cell Distribution Width 11.9 % (11.0-16.0); White Blood Count 9.2 X10*3/uL (4.8-10.8)
[2021-11-09 05:07] LABS: Anion Gap 16 (12-20); Blood Urea Nitrogen 12 mg/dL (9-16); Calcium 9.1 mg/dL (8.4-10.2); Carbon Dioxide 28 mmol/L (22-29); Chloride 101 mmol/L (96-108); Creatinine Clr Calc Pharmacy 97.3; Estimated Glomerular Filt Rate > 60; Glucose Fasting 93 mg/dL (60-99); Potassium 4.7 mmol/L (3.3-5.1); Sodium 140 mmol/L (135-145)
[2021-11-09 06:00] VITALS: BP 152/90; PULSE 50; O2SAT 93
--- NOTE | 2021-11-09 09:05 | P.PNIM_ITS ---
Subjective Subjective Date of Service: 11/09/21 Review of Systems Follow-up consultation, fall with right hip prosthetic failure Sitting up in bed minimal pain at this time Denies chest pain, shortness breath, nausea, vomiting, diarrhea Physical Exam Vital Signs: Vital Signs: Last Vital Signs Temp 97.6 F 11/07/21 15:29 Pulse 50 11/09/21 06:00 Resp 12 11/07/21 18:18 BP 152/90 H 11/09/21 06:00 Pulse Ox 93 11/09/21 06:00 O2 Del Method 11/09/21 06:00 BMI result Body Mass Index 32.1 Appearing in no acute distress lung sounds are clear to auscultation heart regular rate rhythm, clear S1, S2 positive bowel sounds, abdomen is soft, nontender neuro patient is alert x3, no focal deficits Objective Data Active Medications Acetaminophen (Acetaminophen 325 Mg Tablet) 650 mg PO Q6H PRN PRN Reason: Pain, Mild (Pain Scale 1-3) Amlodipine Besylate (Amlodipine Besylate 5 Mg Tablet) 5 mg PO DAILY [facility]; Protocol Docusate Sodium (Docusate Sodium 100 Mg Capsule) 100 mg PO BID [facility] Last Admin: 11/08/21 21:31 Dose: 100 mg Documented By: ENEIDA Docusate Sodium (Docusate Sodium 100 Mg Capsule) 100 mg PO BID [facility] Last Admin: 11/08/21 21:32 Dose: 100 mg Documented By: ENEIDA Finasteride (Finasteride 5 Mg Tablet) 5 mg PO DAILY [facility] Fluoxetine HCl (Fluoxetine Hcl 20 Mg Capsule) 20 mg PO DAILY [facility] Gabapentin (Gabapentin 600 Mg Tablet) 600 mg PO TID [facility] Last Admin: 11/08/21 21:33 Dose: 600 mg Documented By: ENEIDA Hydrochlorothiazide (Hydrochlorothiazide 12.5 Mg Tablet) 12.5 mg PO DAILY [facility] Hydromorphone HCl (Hydromorphone Hcl 0.5 Mg/0.5 Ml Syringe) 0.5 mg IVPUSH Q4H PRN; Protocol PRN Reason: Pain, Severe (Pain Scale 7-10) Lactated Ringer's (Lr) 1,000 mls @ 100 mls/hr IVCONT .Q10H [facility] Last Admin: 11/09/21 03:07 Dose: 100 mls/hr Documented By: ENEIDA Metoprolol Tartrate (Metoprolol Tartrate 100 Mg Tablet) 100 mg PO BID [facility]; Protocol Last Admin: 11/08/21 21:32 Dose: 100 mg Documented By: ENEIDA Ondansetron HCl (Ondansetron Hcl 4 Mg/2 Ml Vial) 4 mg IVPUSH Q8H PRN PRN Reason: Nausea and Vomiting Oxycodone HCl (Oxycodone Hcl Immed Release 5 Mg Tablet) 5 mg PO Q6H [facility] Last Admin: 11/09/21 03:07 Dose: 5 mg Documented By: ENEIDA Oxycodone HCl (Oxycodone Hcl Immed Release 5 Mg Tablet) 5 mg PO Q4H PRN PRN Reason: Pain, Moderate (Pain Scale 4-6 Last Admin: 11/08/21 07:14 Dose: 5 mg Documented By: CASA Oxycodone HCl (Oxycodone Hcl Er 10 Mg Tab.Er.12h) 10 mg PO BID [facility] Last Admin: 11/08/21 21:32 Dose: 10 mg Documented By: ENEIDA Pharmacy Consult (Consult Rx Perform Med Rec) 1 each MISCELLANE ONCE PRN PRN Reason: Consult order Sodium Chloride (0.9 % Sodium Chloride Flush 3 Ml Syringe) 3 ml IVFLUSH QSHIFT [facility] Last Admin: 11/08/21 23:29 Dose: Not Given Documented By: ENEIDA Non-Admin Reason: IV Running Tamsulosin HCl (Tamsulosin Hcl 0.4 Mg Capsule) 0.4 mg PO DAILY [facility] Timolol Maleate (Timolol Maleate 0.5 % Oph Jessica 5 Ml Drbtl) 1 drop EYE-BOTH DAILY [facility] Trazodone HCl (Trazodone Hcl 50 Mg Tablet) 150 mg PO BEDTIME PRN PRN Reason: Insomnia Last Admin: 11/08/21 21:32 Dose: 150 mg Documented By: ENEIDA Labs CBC & Chem 7: 11/09/21 04:43 11/09/21 04:43 Labs: Laboratory Results - last 24 hr 11/08/21 11/09/21 11/09/21 11:40 04:43 04:43 MCV 92.2 MCH 32.4 MCHC 35.2 RDW 11.9 Plt Count 229 MPV 9.4 Immature Gran % (Auto) 0.3 Neut % (Auto) 56.8 Lymph % (Auto) 22.7 [place] % (Auto) 9.1 Eos % (Auto) 10.6 H Baso % (Auto) 0.5 Lymph # (Auto) 2.1 [place] # (Auto) 0.8 Eos # (Auto) 1.0 H Baso # (Auto) 0.1 Abs Immat Gran (auto) 0.03 Absolute Neuts (auto) 5.2 Absolute Nucleated RBC 0.000 Nucleated RBC % (auto) 0.0 Anion Gap 16 Estim Creat Clear Calc 97.3 Estimated GFR > 60 Fasting Glucose 93 Calcium 9.1 Urine Color Yellow Urine Appearance Clear Urine pH 6.0 Ur Specific [place] 1.025 Urine Protein Negative Urine Glucose (UA) Negative Urine Ketones Negative Urine Blood Negative Urine Nitrite Negative Ur Leukocyte Esterase Trace H Urine RBC 0-2 Urine WBC 0-5 Ur Squamous Epith Cells 0-2 Urine Bacteria None Seen Hyaline Casts 0-2 Assessment and Plan (1) Acute hip pain: Status: Acute Plan 71-year-old man admitted by Orthopedic surgery after having a fall 1 week ago with continued pain discomfort and found to have hardware failure with fracture of the right femoral prosthesis at the head and neck junction. Hardware failure after a fall Management as per orthopedic team Pain management Hold aspirin NPO in anticipation for reparative surgery Hypertension.? Stable blood pressure May continue amlodipine, chlorthalidone, beta-bernabe BPH Continue medications Hyperlipidemia Hold statin for now Mental health Continue home medications DVT prophylaxis as per surgical team Attending Dr. Singh Full code Quality Stroke Does the patient have a stroke diagnosis?: No VTE Prior VTE?: No VTE Risk Level:: Medical - moderate - high VTE Device Contraindication: N/A - Device Ordered VTE Drug Contraindication: Treatment Not Indicated
[2021-11-09] MEDS: amLODIPine Besylate 5 MG TABLET PO (10:00)
[2021-11-09] MEDS: hydroCHLOROthiazide 12.5 MG TABLET PO (10:00)
[2021-11-09] MEDS: Tamsulosin HCL 0.4 MG CAPSULE PO (10:00)
[2021-11-09] MEDS: Gabapentin 600 MG TABLET PO ×3 (10:00→21:58)
[2021-11-09] MEDS: Finasteride 5 MG TABLET PO (10:00)
[2021-11-09] MEDS: 0.9 % Sodium Chloride Flush 3 ML SYRINGE IVFLUSH ×3 (10:01→21:59)
[2021-11-09] MEDS: oxyCODONE HCl ER 10 MG TAB.ER.12H PO ×2 (10:01→21:58)
[2021-11-09] MEDS: Docusate Sodium 100 MG CAPSULE PO ×2 (10:02→21:58)
[2021-11-09] MEDS: FLUoxetine HCl 20 MG CAPSULE PO (10:02)
[2021-11-09 11:33] VITALS: BP 130/78; PULSE 50; RESP 16; TEMP 36.8; O2SAT 95
--- NOTE | 2021-11-09 15:11 | MHC.CM.PN ---
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 PT DIRECTED TO CONTACT HIS BALL ENDER OR PCP REGARDING AGRICULTURE RESEARCH DIRECTOR. PT VERIFIES PCP [facility] [place], DENIES BEING VAXED FOR COVID AND HCP IS SON NARGIS CABALLERO [phone], COPY REQUESTED. PT REPORTS HE PREFERS TO GO HOME W/SERVICES HOWEVER IS AGREEABLE TO [facility] FOR STR IF RECOMMENDED BY PT. PLAN FOR SURGERY TOMORROW 11/10.
[2021-11-09 15:16] VITALS: BP 142/72; PULSE 55; RESP 15; TEMP 36.4; O2SAT 94
[2021-11-09 19:56] VITALS: BP 151/79; PULSE 63; RESP 16; TEMP 36.3; O2SAT 93
[2021-11-09] MEDS: traZODone HCL 50 MG TABLET 150 MG PO (21:58)
[2021-11-09] MEDS: Metoprolol Tartrate 100 MG TABLET PO (21:58)
[2021-11-09 23:34] VITALS: BP 118/65; PULSE 63; RESP 17; TEMP 36.7; O2SAT 98
[2021-11-10] VITALS (20 sets, daily range): BP systolic 103–139; BP diastolic 55–79; PULSE 50–86; RESP 14–20; TEMP 36.2–36.9; O2SAT 90–98
[2021-11-10] MEDS: oxyCODONE HCl Immed Release 5 MG TABLET PO ×4 (02:59→20:09)
[2021-11-10] MEDS: HYDROmorphone HCl 0.5 MG/0.5 ML SYRINGE IVPUSH ×3 (05:08→22:56)
[2021-11-10 06:14] LABS: MANUAL DIFF FLAG NO
[2021-11-10 06:20] LABS: Basophils Percent Auto 0.5 % (0-2); Eosinophils Absolute Auto 0.8 X10*3/uL (0.0-0.4); Eosinophils Percent Auto 10.8 % (0-4); Hematocrit 44.2 % (42.0-52.0); Hemoglobin 15.6 g/dl (14.0-18.0); Imm Gran Abs Auto 0.02 X10*3/uL (0.00-0.03); Imm Gran Pct Auto 0.3 % (0.0-0.4); Lymphocytes Absolute Auto 2.2 X10*3/uL (1.2-4.9); Lymphocytes Percent Auto 28.6 % (20-40); Mean Corpuscular HGB Conc 35.3 g/dl (31.0-36.0); Mean Corpuscular Hemoglobin 32.2 pg (27.0-33.0); Mean Corpuscular Volume 91.3 fL (80.0-98.0); Mean Platelet Volume 9.9 fL (9.4-12.4); Monocytes Absolute Auto 0.8 X10*3/uL (0.1-1.2); Monocytes Percent Auto 10.2 % (2-11); Neutrophils Absolute Auto 3.8 x10*3/uL (2.0-8.3); Neutrophils Percent Auto 49.6 % (45-73); Platelet Count 231 X10*3/uL (160-400); Red Blood Count 4.84 X10*6/uL (4.60-5.80); White Blood Count 7.7 X10*3/uL (4.8-10.8)
[2021-11-10 06:53] LABS: Anion Gap 17 (12-20); Blood Urea Nitrogen 11 mg/dL (9-16); Calcium 8.9 mg/dL (8.4-10.2); Carbon Dioxide 26 mmol/L (22-29); Chloride 102 mmol/L (96-108); Creatinine Clr Calc Pharmacy 96.2; Estimated Glomerular Filt Rate > 60; Glucose Fasting 90 mg/dL (60-99); Potassium 3.8 mmol/L (3.3-5.1); Sodium 141 mmol/L (135-145)
[2021-11-10] MEDS: oxyCODONE HCl ER 10 MG TAB.ER.12H PO ×2 (08:23→20:09)
[2021-11-10] MEDS: hydroCHLOROthiazide 12.5 MG TABLET PO (08:23)
[2021-11-10] MEDS: Finasteride 5 MG TABLET PO (08:23)
[2021-11-10] MEDS: amLODIPine Besylate 5 MG TABLET PO (08:23)
[2021-11-10] MEDS: FLUoxetine HCl 20 MG CAPSULE PO (08:24)
[2021-11-10] MEDS: Docusate Sodium 100 MG CAPSULE PO ×2 (08:25→20:09)
[2021-11-10] MEDS: Tamsulosin HCL 0.4 MG CAPSULE PO (08:26)
[2021-11-10] MEDS: Gabapentin 600 MG TABLET PO ×2 (08:26→20:09)
[2021-11-10] MEDS: 0.9 % Sodium Chloride Flush 3 ML SYRINGE IVFLUSH ×3 (08:26→20:13)
--- NOTE | 2021-11-10 10:00 | PC.NURSE ---
Patient arrived from the floor has a 20 gauge IV to left forearm. intact and patent
--- NOTE | 2021-11-10 10:41 | P.CONAN_ITS ---
HPI - Anesthesia Eval Consult details Narrative: 71 M for revision Hip right . CVA , left sided side weakness PMFSH Active Problems Active Problems: All Active Problems (Updated 11/07/21 @ 20:26 by NAEEM Guerrero) Acute hip pain (Acute) Prosthetic hip implant failure (Acute) Fall (Acute) Colon cancer screening (Acute) BPH w urinary obs/LUTS (Acute) Elevated PSA (Acute) Essential hypertension (Acute) SOB (shortness of breath) (Acute) Precordial chest pain (Acute) Past Medical History Medical History (Updated 11/10/21 @ 10:44 by Precious Rey RN) Back pain Depressed Essential hypertension High cholesterol HTN (hypertension) Stroke Family History Family History Father Cardiac pacemaker Mother No problems noted. Family history of problems with anesthesia: No Surgical History Surgical History (Updated 11/10/21 @ 10:45 by Precious Rey RN) History of colonoscopy History of hip surgery History of Problems with Anesthesia: No Social History Social History Household Members: None Housing: Apartment Do you presently have visiting nurse or other home services: No Patient Tobacco Use Status: Former Tobacco user Quit Date: smoke free for over 40 years Tobacco use type: Cigarette e-Cigarette/Vaping Use: Never Used Substance Use Type: Marijuana service: No Current occupational status: disabled Meds Allergies Allergy/AdvReac Type Severity Reaction Status Date / Time simvastatin AdvReac Intermediate Constipatio Verified 11/10/21 10:45 n Active Medications: Current Medications Acetaminophen (Acetaminophen 325 Mg Tablet) 650 mg PO Q6H PRN PRN Reason: Pain, Mild (Pain Scale 1-3) Amlodipine Besylate (Amlodipine Besylate 5 Mg Tablet) 5 mg PO DAILY [facility]; Protocol Last Admin: 11/10/21 08:23 Dose: 5 mg Docusate Sodium (Docusate Sodium 100 Mg Capsule) 100 mg PO BID [facility] Last Admin: 11/10/21 08:25 Dose: 100 mg Docusate Sodium (Docusate Sodium 100 Mg Capsule) 100 mg PO BID [facility] Last Admin: 11/10/21 08:21 Dose: Not Given Finasteride (Finasteride 5 Mg Tablet) 5 mg PO DAILY [facility] Last Admin: 11/10/21 08:23 Dose: 5 mg Fluoxetine HCl (Fluoxetine Hcl 20 Mg Capsule) 20 mg PO DAILY [facility] Last Admin: 11/10/21 08:24 Dose: 20 mg Gabapentin (Gabapentin 600 Mg Tablet) 600 mg PO TID [facility] Last Admin: 11/10/21 08:26 Dose: 600 mg Hydrochlorothiazide (Hydrochlorothiazide 12.5 Mg Tablet) 12.5 mg PO DAILY [facility] Last Admin: 11/10/21 08:23 Dose: 12.5 mg Hydromorphone HCl (Hydromorphone Hcl 0.5 Mg/0.5 Ml Syringe) 0.5 mg IVPUSH Q4H PRN; Protocol PRN Reason: Pain, Severe (Pain Scale 7-10) Last Admin: 11/10/21 05:08 Dose: 0.5 mg Metoprolol Tartrate (Metoprolol Tartrate 100 Mg Tablet) 100 mg PO BID [facility]; Protocol Last Admin: 11/10/21 08:17 Dose: Not Given Ondansetron HCl (Ondansetron Hcl 4 Mg/2 Ml Vial) 4 mg IVPUSH Q8H PRN PRN Reason: Nausea and Vomiting Oxycodone HCl (Oxycodone Hcl Immed Release 5 Mg Tablet) 5 mg PO Q6H [facility] Last Admin: 11/10/21 08:24 Dose: 5 mg Oxycodone HCl (Oxycodone Hcl Immed Release 5 Mg Tablet) 5 mg PO Q4H PRN PRN Reason: Pain, Moderate (Pain Scale 4-6 Last Admin: 11/08/21 07:14 Dose: 5 mg Oxycodone HCl (Oxycodone Hcl Er 10 Mg Tab.Er.12h) 10 mg PO BID [facility] Last Admin: 11/10/21 08:23 Dose: 10 mg Pharmacy Consult (Consult Rx Perform Med Rec) 1 each MISCELLANE ONCE PRN PRN Reason: Consult order Sodium Chloride (0.9 % Sodium Chloride Flush 3 Ml Syringe) 3 ml IVFLUSH QSHIFT [facility] Last Admin: 11/10/21 08:26 Dose: 3 ml Tamsulosin HCl (Tamsulosin Hcl 0.4 Mg Capsule) 0.4 mg PO DAILY [facility] Last Admin: 11/10/21 08:26 Dose: 0.4 mg Timolol Maleate (Timolol Maleate 0.5 % Oph Jessica 5 Ml Drbtl) 1 drop EYE-BOTH DAILY [facility] Last Admin: 11/10/21 08:26 Dose: Not Given Trazodone HCl (Trazodone Hcl 50 Mg Tablet) 150 mg PO BEDTIME PRN PRN Reason: Insomnia Last Admin: 11/09/21 21:58 Dose: 150 mg Home Medications Medication Instructions Recorded Confirmed Last Taken Type aspirin 81 mg tablet,delayed 81 mg PO DAILY 03/05/20 11/08/21 11/07/21 History release (Adult Low Dose Aspirin) docusate sodium 100 mg tablet (DOK) 100 mg PO BID 03/05/20 11/08/21 11/07/21 History fluoxetine 20 mg capsule 20 mg PO DAILY 03/05/20 11/08/21 11/07/21 History gabapentin 600 mg tablet 600 mg PO TID 03/05/20 11/08/21 11/07/21 History lisinopril 40 mg tablet 40 mg PO DAILY 03/05/20 11/09/21 Unknown History metoprolol tartrate 100 mg tablet 100 mg PO BID 03/05/20 11/08/21 11/07/21 History trazodone 150 mg tablet 150 mg PO BEDTIME PRN Insomnia 03/05/20 11/08/21 Unknown History amlodipine 5 mg tablet 5 mg PO DAILY 08/04/21 11/08/21 11/07/21 History chlorthalidone 25 mg tablet 12.5 mg PO DAILY 08/04/21 11/08/21 11/07/21 History diphenhydramine HCl 25 mg capsule 1 cap PO Q8H PRN Itching 11/08/21 11/08/21 Unknown History (Banophen) simvastatin 20 mg tablet 1 tab PO BEDTIME 11/08/21 11/08/21 11/07/21 History timolol maleate 0.5 % eye drops 1 drp ophthalmic (eye) DAILY 11/08/21 11/08/21 11/07/21 History Exam Exam Date and Time: November 10, 2021 104 Height,Weight and Vital Signs: Height 5 ft 9 in Weight 98.883 kg Last Vital Signs Temp 97.9 F 11/10/21 10:01 Pulse 53 11/10/21 10:01 Resp 18 11/10/21 10:01 BP 118/76 11/10/21 10:01 Pulse Ox 94 11/10/21 10:01 O2 Del Method 11/10/21 10:01 Pertinent Lab Results Pertinent Lab Results: Laboratory Tests 11/07/21 11/07/21 11/07/21 20:34 20:34 20:34 WBC 9.7 RBC 5.25 Hgb 16.9 Hct 49.3 MCV 93.9 MCH 32.2 MCHC 34.3 RDW 12.0 Plt Count 282 MPV 9.6 Immature Gran % (Auto) 0.2 Neut % (Auto) 59.6 Lymph % (Auto) 22.9 [place] % (Auto) 8.4 Eos % (Auto) 8.3 H Baso % (Auto) 0.6 Lymph # (Auto) 2.2 [place] # (Auto) 0.8 Eos # (Auto) 0.8 H Baso # (Auto) 0.1 Abs Immat Gran (auto) 0.02 Absolute Neuts (auto) 5.8 Absolute Nucleated RBC 0.000 Nucleated RBC % (auto) 0.0 PT 11.2 INR 1.0 APTT Sodium 143 Potassium 4.6 Chloride 100 Carbon Dioxide 29 Anion Gap 19 BUN 19 H Creatinine 1.18 Estim Creat Clear Calc 68.5 Estimated GFR > 60 Random Glucose 88 Fasting Glucose Calcium 9.6 D Magnesium 2.2 Total Bilirubin 0.6 AST 28 ALT 40 Alkaline Phosphatase 50 D Total Protein 8.1 H Albumin 4.8 Urine Color Urine Appearance Urine pH Ur Specific [place] Urine Protein Urine Glucose (UA) Urine Ketones Urine Blood Urine Nitrite Ur Leukocyte Esterase Urine RBC Urine WBC Ur Squamous Epith Cells Urine Bacteria Hyaline Casts COVID-19 ([facility]) COVID-19 Clin Com Blood Type Antibody Screen 11/07/21 11/07/21 11/07/21 20:34 20:34 20:51 WBC RBC Hgb Hct MCV MCH MCHC RDW Plt Count MPV Immature Gran % (Auto) Neut % (Auto) Lymph % (Auto) [place] % (Auto) Eos % (Auto) Baso % (Auto) Lymph # (Auto) [place] # (Auto) Eos # (Auto) Baso # (Auto) Abs Immat Gran (auto) Absolute Neuts (auto) Absolute Nucleated RBC Nucleated RBC % (auto) PT INR APTT 32.7 Sodium Potassium Chloride Carbon Dioxide Anion Gap BUN Creatinine Estim Creat Clear Calc Estimated GFR Random Glucose Fasting Glucose Calcium Magnesium Total Bilirubin AST ALT Alkaline Phosphatase Total Protein Albumin Urine Color Urine Appearance Urine pH Ur Specific [place] Urine Protein Urine Glucose (UA) Urine Ketones Urine Blood Urine Nitrite Ur Leukocyte Esterase Urine RBC Urine WBC Ur Squamous Epith Cells Urine Bacteria Hyaline Casts COVID-19 ([facility]) Negative COVID-19 Clin Com See Note Blood Type O Negative Antibody Screen NEGATIVE 11/08/21 11/08/21 11/08/21 07:38 07:38 11:40 WBC 8.6 RBC 4.94 Hgb 15.8 Hct 46.2 MCV 93.5 MCH 32.0 MCHC 34.2 RDW 12.2 Plt Count 194 D MPV 10.0 Immature Gran % (Auto) 0.2 Neut % (Auto) 46.3 Lymph % (Auto) 30.7 [place] % (Auto) 9.9 Eos % (Auto) 12.0 H Baso % (Auto) 0.9 Lymph # (Auto) 2.6 [place] # (Auto) 0.9 Eos # (Auto) 1.0 H Baso # (Auto) 0.1 Abs Immat Gran (auto) 0.02 Absolute Neuts (auto) 4.0 Absolute Nucleated RBC 0.000 Nucleated RBC % (auto) 0.0 PT INR APTT Sodium 141 Potassium 4.1 Chloride 104 Carbon Dioxide 24 Anion Gap 17 BUN 16 Creatinine 0.86 Estim Creat Clear Calc 93.9 Estimated GFR > 60 Random Glucose Fasting Glucose 83 D Calcium 8.7 D Magnesium Total Bilirubin AST ALT Alkaline Phosphatase Total Protein Albumin Urine Color Yellow Urine Appearance Clear Urine pH 6.0 Ur Specific [place] 1.025 Urine Protein Negative Urine Glucose (UA) Negative Urine Ketones Negative Urine Blood Negative Urine Nitrite Negative Ur Leukocyte Esterase Trace H Urine RBC 0-2 Urine WBC 0-5 Ur Squamous Epith Cells 0-2 Urine Bacteria None Seen Hyaline Casts 0-2 COVID-19 ([facility]) COVID-19 Clin Com Blood Type Antibody Screen 11/09/21 11/09/21 11/10/21 04:43 04:43 05:18 WBC 9.2 7.7 RBC 4.90 4.84 Hgb 15.9 15.6 Hct 45.2 44.2 MCV 92.2 91.3 MCH 32.4 32.2 MCHC 35.2 35.3 RDW 11.9 12.0 Plt Count 229 231 MPV 9.4 9.9 Immature Gran % (Auto) 0.3 0.3 Neut % (Auto) 56.8 49.6 Lymph % (Auto) 22.7 28.6 [place] % (Auto) 9.1 10.2 Eos % (Auto) 10.6 H 10.8 H Baso % (Auto) 0.5 0.5 Lymph # (Auto) 2.1 2.2 [place] # (Auto) 0.8 0.8 Eos # (Auto) 1.0 H 0.8 H Baso # (Auto) 0.1 0.0 Abs Immat Gran (auto) 0.03 0.02 Absolute Neuts (auto) 5.2 3.8 Absolute Nucleated RBC 0.000 0.000 Nucleated RBC % (auto) 0.0 0.0 PT INR APTT Sodium 140 Potassium 4.7 Chloride 101 Carbon Dioxide 28 Anion Gap 16 BUN 12 Creatinine 0.83 Estim Creat Clear Calc 97.3 Estimated GFR > 60 Random Glucose Fasting Glucose 93 Calcium 9.1 Magnesium Total Bilirubin AST ALT Alkaline Phosphatase Total Protein Albumin Urine Color Urine Appearance Urine pH Ur Specific [place] Urine Protein Urine Glucose (UA) Urine Ketones Urine Blood Urine Nitrite Ur Leukocyte Esterase Urine RBC Urine WBC Ur Squamous Epith Cells Urine Bacteria Hyaline Casts COVID-19 ([facility]) COVIDCardMunch Blood Type Antibody Screen 11/10/21 05:18 WBC RBC Hgb Hct MCV MCH MCHC RDW Plt Count MPV Immature Gran % (Auto) Neut % (Auto) Lymph % (Auto) [place] % (Auto) Eos % (Auto) Baso % (Auto) Lymph # (Auto) [place] # (Auto) Eos # (Auto) Baso # (Auto) Abs Immat Gran (auto) Absolute Neuts (auto) Absolute Nucleated RBC Nucleated RBC % (auto) PT INR APTT Sodium 141 Potassium 3.8 Chloride 102 Carbon Dioxide 26 Anion Gap 17 BUN 11 Creatinine 0.84 Estim Creat Clear Calc 96.2 Estimated GFR > 60 Random Glucose Fasting Glucose 90 Calcium 8.9 Magnesium Total Bilirubin AST ALT Alkaline Phosphatase Total Protein Albumin Urine Color Urine Appearance Urine pH Ur Specific [place] Urine Protein Urine Glucose (UA) Urine Ketones Urine Blood Urine Nitrite Ur Leukocyte Esterase Urine RBC Urine WBC Ur Squamous Epith Cells Urine Bacteria Hyaline Casts COVID-19 ([facility]) COVID-19 [employer] Com Blood Type Antibody Screen Airway Mallampati Class: III Neck ROM: Full Denture: Upper and Lower Loose/Missing/Broken Teeth: Yes Heart: S1,S2 Lungs: b/l breath sounds Assessment and Plan Assessment Anesthesia Assessment: Anesthesia Plan Discussed and Chart Reviewed Final Anesthetic Review Family History of Problems with Anesthesia: No History of Problems with Anesthesia: No NPO: Yes ASA Class: III Final Preanesthetic Review: Meds/Allgs Chart Reviewed, Consent Obtained/Reviewed and Anes Risks/Benef Reviewed Patient Risk: Intermediate Procedure Risk: Intermediate Anesthetic Plan Anesthetic Plan: GA Disposition: Inp. Admit - Standard Bed
--- NOTE | 2021-11-10 11:37 | MHC.SHP ---
Pre-Procedural Eval Section A Date of Service: 11/10/21 The patient is an INPATIENT: Yes Changes since office visit: Yes Patient answered all questions; No Cold of Flu in the past 2 weeks, No New Medical Problems and No Changes in Medication The History & Physical has been completed within 30 days and I have reviewed it.: Yes Section B Chief Complaint: Right Hip prosthetic failure Allergies: Allergies Allergy/AdvReac Type Severity Reaction Status Date / Time simvastatin AdvReac Intermediate Constipatio Verified 11/10/21 10:45 n Plan I have reviewed the history and physical and performed a pertinent physical examination on my patient. No changes have occurred unless specified.
--- NOTE | 2021-11-10 12:04 | PC.NURSE ---
author was at lunch. report given to RECRUITMENT DIRECTORFlorina TRISTAN, by Gail TYSON RN.
--- NOTE | 2021-11-10 12:41 | HO.PM.IMPN ---
Subjective Subjective Date of Service: 11/10/21 Review of Systems Follow-up consultation, fall with right hip prosthetic failure Sitting up in bed minimal pain at this time Denies chest pain, shortness breath, nausea, vomiting, diarrhea Physical Exam Vital Signs: Vital Signs: Last Vital Signs Temp 97.9 F 11/10/21 10:01 Pulse 53 11/10/21 10:01 Resp 18 11/10/21 10:01 BP 118/76 11/10/21 10:01 Pulse Ox 94 11/10/21 10:01 O2 Del Method 11/10/21 10:01 BMI result Body Mass Index 32.1 Appearing in no acute distress lung sounds are clear to auscultation heart regular rate rhythm, clear S1, S2 positive bowel sounds, abdomen is soft, nontender neuro patient is alert x3, no focal deficits Objective Data Active Medications Acetaminophen (Acetaminophen 325 Mg Tablet) 650 mg PO Q6H PRN PRN Reason: Pain, Mild (Pain Scale 1-3) Amlodipine Besylate (Amlodipine Besylate 5 Mg Tablet) 5 mg PO DAILY [facility]; Protocol Last Admin: 11/10/21 08:23 Dose: 5 mg Documented By: ROYCE Docusate Sodium (Docusate Sodium 100 Mg Capsule) 100 mg PO BID [facility] Last Admin: 11/10/21 08:25 Dose: 100 mg Documented By: ROYCE Docusate Sodium (Docusate Sodium 100 Mg Capsule) 100 mg PO BID [facility] Last Admin: 11/10/21 08:21 Dose: Not Given Documented By: ROYCE Non-Admin Reason: Duplicate Order Finasteride (Finasteride 5 Mg Tablet) 5 mg PO DAILY [facility] Last Admin: 11/10/21 08:23 Dose: 5 mg Documented By: ROYCE Fluoxetine HCl (Fluoxetine Hcl 20 Mg Capsule) 20 mg PO DAILY [facility] Last Admin: 11/10/21 08:24 Dose: 20 mg Documented By: ROYCE Gabapentin (Gabapentin 600 Mg Tablet) 600 mg PO TID [facility] Last Admin: 11/10/21 08:26 Dose: 600 mg Documented By: ROYCE Hydrochlorothiazide (Hydrochlorothiazide 12.5 Mg Tablet) 12.5 mg PO DAILY [facility] Last Admin: 11/10/21 08:23 Dose: 12.5 mg Documented By: ROYCE Hydromorphone HCl (Hydromorphone Hcl 0.5 Mg/0.5 Ml Syringe) 0.5 mg IVPUSH Q4H PRN; Protocol PRN Reason: Pain, Severe (Pain Scale 7-10) Last Admin: 11/10/21 05:08 Dose: 0.5 mg Documented By: ANANTH Metoprolol Tartrate (Metoprolol Tartrate 100 Mg Tablet) 100 mg PO BID [facility]; Protocol Last Admin: 11/10/21 08:17 Dose: Not Given Documented By: ROYCE Non-Admin Reason: Decreased Heart Rate Ondansetron HCl (Ondansetron Hcl 4 Mg/2 Ml Vial) 4 mg IVPUSH Q8H PRN PRN Reason: Nausea and Vomiting Oxycodone HCl (Oxycodone Hcl Immed Release 5 Mg Tablet) 5 mg PO Q6H [facility] Last Admin: 11/10/21 08:24 Dose: 5 mg Documented By: ROYCE Oxycodone HCl (Oxycodone Hcl Immed Release 5 Mg Tablet) 5 mg PO Q4H PRN PRN Reason: Pain, Moderate (Pain Scale 4-6 Last Admin: 11/08/21 07:14 Dose: 5 mg Documented By: CASA Oxycodone HCl (Oxycodone Hcl Er 10 Mg Tab.Er.12h) 10 mg PO BID [facility] Last Admin: 11/10/21 08:23 Dose: 10 mg Documented By: ROYCE Pharmacy Consult (Consult Rx Perform Med Rec) 1 each MISCELLANE ONCE PRN PRN Reason: Consult order Sodium Chloride (0.9 % Sodium Chloride Flush 3 Ml Syringe) 3 ml IVFLUSH QSHIFT [facility] Last Admin: 11/10/21 08:26 Dose: 3 ml Documented By: ROYCE Tamsulosin HCl (Tamsulosin Hcl 0.4 Mg Capsule) 0.4 mg PO DAILY [facility] Last Admin: 11/10/21 08:26 Dose: 0.4 mg Documented By: ROYCE Timolol Maleate (Timolol Maleate 0.5 % Oph Jessica 5 Ml Drbtl) 1 drop EYE-BOTH DAILY [facility] Last Admin: 11/10/21 08:26 Dose: Not Given Documented By: ROYCE Non-Admin Reason: Patient Refused Trazodone HCl (Trazodone Hcl 50 Mg Tablet) 150 mg PO BEDTIME PRN PRN Reason: Insomnia Last Admin: 11/09/21 21:58 Dose: 150 mg Documented By: ANANTH Labs CBC & Chem 7: 11/10/21 05:18 11/10/21 05:18 Labs: Laboratory Results - last 24 hr 11/10/21 11/10/21 05:18 05:18 MCV 91.3 MCH 32.2 MCHC 35.3 RDW 12.0 Plt Count 231 MPV 9.9 Immature Gran % (Auto) 0.3 Neut % (Auto) 49.6 Lymph % (Auto) 28.6 [place] % (Auto) 10.2 Eos % (Auto) 10.8 H Baso % (Auto) 0.5 Lymph # (Auto) 2.2 [place] # (Auto) 0.8 Eos # (Auto) 0.8 H Baso # (Auto) 0.0 Abs Immat Gran (auto) 0.02 Absolute Neuts (auto) 3.8 Absolute Nucleated RBC 0.000 Nucleated RBC % (auto) 0.0 Anion Gap 17 Estim Creat Clear Calc 96.2 Estimated GFR > 60 Fasting Glucose 90 Calcium 8.9 Assessment and Plan (1) Acute hip pain: Status: Acute Plan 71-year-old man admitted by Orthopedic surgery after having a fall 1 week ago with continued pain discomfort and found to have hardware failure with fracture of the right femoral prosthesis at the head and neck junction. Hardware failure after a fall Management as per orthopedic team Pain management Hold aspirin NPO in anticipation for reparative surgery Hypertension.? Stable blood pressure May continue amlodipine, chlorthalidone, beta-bernabe BPH Continue medications Hyperlipidemia Hold statin for now Mental health Continue home medications DVT prophylaxis as per surgical team Attending Dr. Singh Full code Consultation Quality Stroke Does the patient have a stroke diagnosis?: No VTE Prior VTE?: No VTE Risk Level:: Medical - moderate - high VTE Device Contraindication: N/A - Device Ordered VTE Drug Contraindication: Treatment Not Indicated
--- NOTE | 2021-11-10 14:49 | P.OP_ITS ---
Operative Note Operative Note Date of Service: 11/10/21 Narrative: Date of Service: 11/10/21 Pre-op diagnosis: right hip hardware failure Post-op diagnosis: same Procedure: Revision right hip arhtoplasty Implants: Styker Secure-Fit 132 deg #7 press fit stem with +5 26 ceramic femoral head and 20 deg posterior PE liner Surgeon: Lawson Bowie MD Anesthesia: GETA and local Was an [employer] used for this Procedure?: Yes [employer]: Nando Holley Estimated blood loss (mL): 300 IV fluids (mL): 1,000 Pathology: none sent Condition: stable Disposition: PACU Procedure in detail: Patient was brought into the operating room and placed in the left lateral decubitus position. All bony prominences were well padded and the limb was prepped and draped in standard sterile fashion. Time-out was called to identify proper site procedure proper surgeon IV antibiotics and 1 g of transaxemic acid were administered. I began by making a curvilinear incision over the prior posterolateral incision. Dissection was taken down to the tensor fascia which was scarred and fibrotic. The fascia was incised in line with the incision and a Charnley retractor was placed. Cautery was used to maintain hemostasis. A werewolf device was also used. The hip was internally rotated and the external rotators were identified. The abductor mediuss was protected and a capsulotomy was made. There was copius mettalosis and dissection was slow. The head was in the cup but the trunion had displaced from the stem and was worn down. I removed as much metallosis and fibrous tissue as was needed to internally rotate the femur. The head was then levered out of the cup. The stem was examined,. The trunion was pointed and worn but the stem was well fixed. I therefore removed lateral and anterior tissue and then circumferentially and slowly used a combination of flexible and non flexible osteotomes and a small curette. I inserted the removal slap hammer and after about 60 minutes was able to remove the stem. There was minimal to no bone loss and other than some mild bone loss proximal to the lesser the greater trochanter and the canal were stable. I used a sharp awl to remove a distal sclerotic shelf of bone and then a lateralizing reamer and then reamed up to a 7. Aa #7 127 deg was trialed witha + 5 and I was satisfied with the stability and length. I then removed the trial and used an osteotome to remove the prior liner. This was simple and the cup was well fixed. There was bone deep to the sup and no grafting was needed. I irrigated copiously and placed a 20 deg posterior lipped liner matching the prior Taylor product. I then placed the final femoral implant and re-trialed with a +5 and again was satisfied with the stability. I then irrigated for 3 minutes with iodine and placed 1 g of local tranaxemic acid. I then performed a capsular closure with 2.0 fiberwire, Aleksandr's fascia with 0 Vicryl, subcuticular with 2-0 Vicryl and the skin with yevgeniy. Patient was placed into a sterile dressing. Radiographs were obtained at the completion of the case and I was satisfied with the component position. Patient was extubated brought to the recovery room in stable condition. There were no know complications.
[2021-11-10] MEDS: fentaNYL citrate/PF 100 MCG/2 ML VIAL 25 MCG IVPUSH ×4 (15:47→16:07)
[2021-11-10] MEDS: HYDROmorphone HCl 0.5 MG/0.5 ML SYRINGE 0.25 MG IVPUSH ×2 (16:22→16:27)
[2021-11-10] MEDS: traZODone HCL 50 MG TABLET 150 MG PO (20:09)
[2021-11-10] MEDS: Metoprolol Tartrate 100 MG TABLET PO (20:09)
[2021-11-11] VITALS (7 sets, daily range): BP systolic 102–140; BP diastolic 54–77; PULSE 69–82; RESP 15–18; TEMP 36.2–37.3; O2SAT 92–96
[2021-11-11] MEDS: oxyCODONE HCl Immed Release 5 MG TABLET PO (01:55)
[2021-11-11] MEDS: HYDROmorphone HCl 0.5 MG/0.5 ML SYRINGE IVPUSH ×3 (05:53→17:14)
[2021-11-11 06:45] LABS: Basophils Percent Auto 0.1 % (0-2); Eosinophils Percent Auto 0.1 % (0-4); Hematocrit 39.2 % (42.0-52.0); Hemoglobin 13.7 g/dl (14.0-18.0); Imm Gran Abs Auto 0.05 X10*3/uL (0.00-0.03); Imm Gran Pct Auto 0.4 % (0.0-0.4); Lymphocytes Absolute Auto 1.1 X10*3/uL (1.2-4.9); Lymphocytes Percent Auto 8.4 % (20-40); Mean Corpuscular HGB Conc 34.9 g/dl (31.0-36.0); Mean Corpuscular Hemoglobin 32.5 pg (27.0-33.0); Mean Corpuscular Volume 93.1 fL (80.0-98.0); Mean Platelet Volume 10.2 fL (9.4-12.4); Monocytes Absolute Auto 1.6 X10*3/uL (0.1-1.2); Monocytes Percent Auto 12.1 % (2-11); Neutrophils Absolute Auto 10.4 x10*3/uL (2.0-8.3); Neutrophils Percent Auto 78.9 % (45-73); Platelet Count 242 X10*3/uL (160-400); Red Blood Count 4.21 X10*6/uL (4.60-5.80); SCAN SMEAR FLAG 1; White Blood Count 13.2 X10*3/uL (4.8-10.8)
[2021-11-11 06:49] LABS: MANUAL DIFF FLAG SCAN
[2021-11-11 07:11] LABS: Blood Urea Nitrogen 15 mg/dL (9-16); Calcium 8.9 mg/dL (8.4-10.2); Creatinine Clr Calc Pharmacy 89.8; Estimated Glomerular Filt Rate > 60; Glucose Fasting 107 mg/dL (60-99)
[2021-11-11 07:22] LABS: Anion Gap 18 (12-20); Carbon Dioxide 30 mmol/L (22-29); Chloride 98 mmol/L (96-108); Potassium 4.6 mmol/L (3.3-5.1); Sodium 141 mmol/L (135-145)
--- NOTE | 2021-11-11 07:48 | PM.PNORT ---
Subjective Subjective Date of Service: 11/11/21 Interval history: POD1 s/p RTHA revision. No overnight events. Pain continues to be challenging. Resting in bed comfortably. No overnight events. Physical Exam Vital Signs: Vital Signs: Last Vital Signs Temp 99.2 F 11/11/21 07:42 Pulse 70 11/11/21 07:42 Resp 18 11/11/21 07:42 BP 108/74 11/11/21 07:42 Pulse Ox 96 11/11/21 07:42 O2 Del Method 11/11/21 07:42 O2 Flow Rate 3.0 11/10/21 19:57 BMI result Body Mass Index 32.1 Const: General: cooperative, healthy appearing and no acute distress Resp: Effort & Inspection: normal respiratory effort and able to speak in complete sentences Cardio: Rate: regular rate Peripheral pulses: Peripheral pulses 2+ throughout GI: Palpation (GI): Soft to palpation Skin: Lesions: no lesions Rashes: no rashes Extrem: Other: Right hip Aquacel is clean dry, and intact. Able to dorsiflex and plantarflex. NVI. Procedures Date of Service Date of Service: 11/11/21 Progress Note: A&P Assessment and plan (1) Prosthetic hip implant failure: Status: Acute (2) Status post revision of total hip replacement: Status: Acute Plan Continue pain mgmnt Begin Lovenox dvt ppx begin PT for Right total hip revision Dispo planning-Pending PT eval, pain mgmnt Time Spent With Patient Time: Total time spent is greater than 50% in coordination of care (as documented) at patient's floor/unit and/or counseling patient: Quality Stroke Does the patient have a stroke diagnosis?: No VTE Prior VTE?: No VTE Risk Level:: Medical - moderate - high VTE Device Contraindication: N/A - Device Ordered VTE Drug Contraindication: Treatment Not Indicated
[2021-11-11 07:49] LABS: SLIDE REVIEW VERIFIED
--- NOTE | 2021-11-11 08:13 | HO.PM.IMPN ---
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 Denies chest pain, shortness breath, nausea, vomiting, diarrhea Physical Exam Vital Signs: Vital Signs: Last Vital Signs Temp 99.2 F 11/11/21 07:42 Pulse 70 11/11/21 07:42 Resp 18 11/11/21 07:42 BP 108/74 11/11/21 07:42 Pulse Ox 96 11/11/21 07:42 O2 Del Method 11/11/21 07:42 O2 Flow Rate 3.0 11/10/21 19:57 BMI result Body Mass Index 32.1 Appearing in no acute distress lung sounds are clear to auscultation heart regular rate rhythm, clear S1, S2 positive bowel sounds, abdomen is soft, nontender neuro patient is alert x3, no focal deficits Surgical dressing intact, wound not visualized Objective Data Active Medications Acetaminophen (Acetaminophen 325 Mg Tablet) 650 mg PO Q6H PRN PRN Reason: Pain, Mild (Pain Scale 1-3) Amlodipine Besylate (Amlodipine Besylate 5 Mg Tablet) 5 mg PO DAILY [facility]; Protocol Last Admin: 11/10/21 08:23 Dose: 5 mg Documented By: ROYCE Aspirin (Aspirin 325 Mg Tablet) 325 mg PO BID [facility] Docusate Sodium (Docusate Sodium 100 Mg Capsule) 100 mg PO BID [facility] Last Admin: 11/10/21 20:09 Dose: 100 mg Documented By: ANANTH Docusate Sodium (Docusate Sodium 100 Mg Capsule) 100 mg PO BID [facility] Last Admin: 11/11/21 08:09 Dose: Not Given Documented By: ROYCE Non-Admin Reason: Duplicate Order Finasteride (Finasteride 5 Mg Tablet) 5 mg PO DAILY [facility] Last Admin: 11/10/21 08:23 Dose: 5 mg Documented By: ROYCE Fluoxetine HCl (Fluoxetine Hcl 20 Mg Capsule) 20 mg PO DAILY [facility] Last Admin: 11/10/21 08:24 Dose: 20 mg Documented By: ROYCE Gabapentin (Gabapentin 600 Mg Tablet) 600 mg PO TID [facility] Last Admin: 11/10/21 20:09 Dose: 600 mg Documented By: ANANTH Hydrochlorothiazide (Hydrochlorothiazide 12.5 Mg Tablet) 12.5 mg PO DAILY [facility] Last Admin: 11/10/21 08:23 Dose: 12.5 mg Documented By: ROYCE Hydromorphone HCl (Hydromorphone Hcl 0.5 Mg/0.5 Ml Syringe) 0.5 mg IVPUSH Q4H PRN; Protocol PRN Reason: Pain, Severe (Pain Scale 7-10) Last Admin: 11/11/21 05:53 Dose: 0.5 mg Documented By: ANANTH Cefazolin Sodium/Dextrose (Ancef) 2 gm in 50 mls @ 100 mls/hr IV POSTOP [facility] Metoprolol Tartrate (Metoprolol Tartrate 100 Mg Tablet) 100 mg PO BID [facility]; Protocol Last Admin: 11/10/21 20:09 Dose: 100 mg Documented By: ANANTH Ondansetron HCl (Ondansetron Hcl 4 Mg/2 Ml Vial) 4 mg IVPUSH Q8H PRN PRN Reason: Nausea and Vomiting Oxycodone HCl (Oxycodone Hcl Immed Release 5 Mg Tablet) 5 mg PO Q4H PRN PRN Reason: Pain, Moderate (Pain Scale 4-6 Last Admin: 11/11/21 01:55 Dose: 5 mg Documented By: ANANTH Oxycodone HCl (Oxycodone Hcl Er 10 Mg Tab.Er.12h) 10 mg PO BID [facility] Last Admin: 11/10/21 20:09 Dose: 10 mg Documented By: ANANTH Pharmacy Consult (Consult Rx Perform Med Rec) 1 each MISCELLANE ONCE PRN PRN Reason: Consult order Sodium Chloride (0.9 % Sodium Chloride Flush 3 Ml Syringe) 3 ml IVFLUSH QSHIFT [facility] Last Admin: 11/10/21 20:13 Dose: 3 ml Documented By: ANANTH Tamsulosin HCl (Tamsulosin Hcl 0.4 Mg Capsule) 0.4 mg PO DAILY [facility] Last Admin: 11/10/21 08:26 Dose: 0.4 mg Documented By: ROYCE Timolol Maleate (Timolol Maleate 0.5 % Oph Jessica 5 Ml Drbtl) 1 drop EYE-BOTH DAILY [facility] Last Admin: 11/10/21 08:26 Dose: Not Given Documented By: ROYCE Non-Admin Reason: Patient Refused Trazodone HCl (Trazodone Hcl 50 Mg Tablet) 150 mg PO BEDTIME PRN PRN Reason: Insomnia Last Admin: 11/10/21 20:09 Dose: 150 mg Documented By: ANANTH Labs CBC & Chem 7: 11/11/21 05:15 11/11/21 05:15 Labs: Laboratory Results - last 24 hr 11/11/21 11/11/21 05:15 05:15 MCV 93.1 MCH 32.5 MCHC 34.9 RDW 12.0 Plt Count 242 MPV 10.2 Immature Gran % (Auto) 0.4 Neut % (Auto) 78.9 H Lymph % (Auto) 8.4 L [place] % (Auto) 12.1 H Eos % (Auto) 0.1 Baso % (Auto) 0.1 Lymph # (Auto) 1.1 L [place] # (Auto) 1.6 H Eos # (Auto) 0.0 Baso # (Auto) 0.0 Abs Immat Gran (auto) 0.05 H Absolute Neuts (auto) 10.4 H Absolute Nucleated RBC 0.000 Nucleated RBC % (auto) 0.0 Smear Tech's Comments VERIFIED Anion Gap 18 Estim Creat Clear Calc 89.8 Estimated GFR > 60 Fasting Glucose 107 H Calcium 8.9 Assessment and Plan (1) Acute hip pain: Status: Acute Plan 71-year-old man admitted by Orthopedic surgery after having a fall 1 week ago with continued pain discomfort and found to have hardware failure with fracture of the right femoral prosthesis at the head and neck junction. Hardware failure after a fall. Status post revision Management as per orthopedic team Pain management Hold aspirin Hypertension.? Stable blood pressure May continue amlodipine, chlorthalidone, beta-bernabe BPH Continue medications Hyperlipidemia Hold statin for now, may restart at discharge Mental health Continue home medications DVT prophylaxis as per surgical team Attending Dr. Singh Full code MEDICAL CONSULTATION COMPLETED. WILL SIGN OFF Quality Stroke Does the patient have a stroke diagnosis?: No VTE Prior VTE?: No VTE Risk Level:: Medical - moderate - high VTE Device Contraindication: N/A - Device Ordered VTE Drug Contraindication: Treatment Not Indicated
[2021-11-11] MEDS: hydroCHLOROthiazide 12.5 MG TABLET PO (08:19)
[2021-11-11] MEDS: Finasteride 5 MG TABLET PO (08:19)
[2021-11-11] MEDS: oxyCODONE HCl ER 10 MG TAB.ER.12H PO ×2 (08:19→21:15)
[2021-11-11] MEDS: 0.9 % Sodium Chloride Flush 3 ML SYRINGE IVFLUSH ×3 (08:19→21:15)
[2021-11-11] MEDS: Metoprolol Tartrate 100 MG TABLET PO ×2 (08:20→21:15)
[2021-11-11] MEDS: amLODIPine Besylate 5 MG TABLET PO (08:20)
[2021-11-11] MEDS: Docusate Sodium 100 MG CAPSULE PO ×2 (08:20→21:15)
[2021-11-11] MEDS: Gabapentin 600 MG TABLET PO ×3 (08:20→21:15)
[2021-11-11] MEDS: Tamsulosin HCL 0.4 MG CAPSULE PO (08:20)
[2021-11-11] MEDS: FLUoxetine HCl 20 MG CAPSULE PO (08:20)
[2021-11-11] MEDS: timoloL maleate 0.5 % Oph Sol 5 ML DRBTL 1 DROP EYE-BOTH (09:11)
--- NOTE | 2021-11-11 12:21 | MHC.CM.PN ---
Addendum entered by Guerda Blake RN 11/11/21 12:45: yoli lopez offering pt an unvaxed bed. Original Note: EMR REVIEWED, PT S/P REVISION ON LEFT TOTAL HIP REPLACEMENT, PT AND OT RECOMMEND STR, PT PREFERS [facility] AND REFERRAL PLACED, ANTIC PT WILL BE READY FOR D/C 11/12, REFERRALS PLACED AND CM AWAITING RESPONSE, PT IS NOT COVID VAXED THEREFORE MAY NEED TO GO TO SNF OUTSIDE OF [facility], CM WILL CONT TO FOLLOW.
[2021-11-11] MEDS: Aspirin 325 MG TABLET PO ×2 (14:02→21:16)
--- NOTE | 2021-11-11 14:12 | HO.POSTANES ---
Post Anesthesia Evaluation Post Anesthesia Evaluation Vital Signs: Vital Signs Temp Pulse Resp BP Pulse Ox O2 Del Method 11/11/21 12:15 98.1 F 71 18 102/54 L 93 Room Air 11/11/21 07:42 99.2 F 70 18 108/74 96 Room Air 11/11/21 03:46 97.1 F 74 17 120/77 95 Room Air Anesthesia: General Mental Status: Awake Pain Control: Satisfactory (difficult to control) Nausea/Vomiting: None Hydration: Adequate Anesthesia-Related Issues: No Anes. Related Issues
[2021-11-12 04:00] VITALS: BP 141/73; PULSE 68; RESP 17; TEMP 36.4; O2SAT 94
[2021-11-12 06:22] LABS: Basophils Percent Auto 0.4 % (0-2); Eosinophils Absolute Auto 0.2 X10*3/uL (0.0-0.4); Eosinophils Percent Auto 1.8 % (0-4); Hematocrit 35.6 % (42.0-52.0); Hemoglobin 12.2 g/dl (14.0-18.0); Imm Gran Abs Auto 0.05 X10*3/uL (0.00-0.03); Imm Gran Pct Auto 0.5 % (0.0-0.4); Lymphocytes Percent Auto 17.8 % (20-40); MANUAL DIFF FLAG SCAN; Mean Corpuscular HGB Conc 34.3 g/dl (31.0-36.0); Mean Corpuscular Hemoglobin 32.2 pg (27.0-33.0); Mean Corpuscular Volume 93.9 fL (80.0-98.0); Mean Platelet Volume 10.2 fL (9.4-12.4); Monocytes Absolute Auto 1.7 X10*3/uL (0.1-1.2); Monocytes Percent Auto 15.7 % (2-11); Neutrophils Percent Auto 63.8 % (45-73); Platelet Count 199 X10*3/uL (160-400); Red Blood Count 3.79 X10*6/uL (4.60-5.80); Red Cell Distribution Width 12.2 % (11.0-16.0); SCAN SMEAR FLAG 1
[2021-11-12 06:29] LABS: COVID-19 Test Negative (Negative); IDNOW Serial# 16C4AD1C
[2021-11-12] MEDS: HYDROmorphone HCl 0.5 MG/0.5 ML SYRINGE IVPUSH (06:50)
[2021-11-12 06:51] LABS: Anion Gap 14 (12-20); Blood Urea Nitrogen 13 mg/dL (9-16); Calcium 8.3 mg/dL (8.4-10.2); Carbon Dioxide 31 mmol/L (22-29); Chloride 98 mmol/L (96-108); Creatinine Clr Calc Pharmacy 92.9; Estimated Glomerular Filt Rate > 60; Glucose Fasting 111 mg/dL (60-99); Potassium 4.2 mmol/L (3.3-5.1); Sodium 139 mmol/L (135-145)
[2021-11-12 07:24] LABS: SLIDE REVIEW VERIFIED
[2021-11-12 07:26] VITALS: BP 123/64; PULSE 70; RESP 14; TEMP 37; O2SAT 92
[2021-11-12] MEDS: amLODIPine Besylate 5 MG TABLET PO (07:53)
[2021-11-12] MEDS: Tamsulosin HCL 0.4 MG CAPSULE PO (07:53)
[2021-11-12] MEDS: Gabapentin 600 MG TABLET PO (07:53)
[2021-11-12] MEDS: Finasteride 5 MG TABLET PO (07:53)
[2021-11-12] MEDS: FLUoxetine HCl 20 MG CAPSULE PO (07:53)
[2021-11-12] MEDS: Metoprolol Tartrate 100 MG TABLET PO (07:53)
[2021-11-12] MEDS: hydroCHLOROthiazide 12.5 MG TABLET PO (07:53)
[2021-11-12] MEDS: oxyCODONE HCl ER 10 MG TAB.ER.12H PO (07:54)
[2021-11-12] MEDS: 0.9 % Sodium Chloride Flush 3 ML SYRINGE IVFLUSH (07:54)
[2021-11-12] MEDS: Docusate Sodium 100 MG CAPSULE PO (07:54)
[2021-11-12] MEDS: Aspirin 325 MG TABLET PO (07:54)
[2021-11-12] MEDS: timoloL maleate 0.5 % Oph Sol 5 ML DRBTL 1 DROP EYE-BOTH (07:59)
--- NOTE | 2021-11-12 08:30 | PM.PNORT ---
Subjective Subjective Date of Service: 11/12/21 Interval history: POD2 s/p RTHA revision. Patient is resting comfortably in the chair eating breakfast. No overnight events. Pain is managed. No additional compaints. Physical Exam Vital Signs: Vital Signs: Last Vital Signs Temp 98.6 F 11/12/21 07:26 Pulse 70 11/12/21 07:26 Resp 14 11/12/21 07:26 BP 123/64 11/12/21 07:26 Pulse Ox 92 11/12/21 07:26 O2 Del Method 11/12/21 07:26 O2 Flow Rate 3.0 11/10/21 19:57 BMI result Body Mass Index 32.1 Const: General: cooperative, healthy appearing and no acute distress Resp: Effort & Inspection: normal respiratory effort and able to speak in complete sentences Cardio: Rate: regular rate Peripheral pulses: Peripheral pulses 2+ throughout GI: Palpation (GI): Soft to palpation Skin: Lesions: no lesions Rashes: no rashes Extrem: Other: Right hip Aquacel is clean, dry, and intact. Calf is supple and nontender. NVI. Progress Note: A&P Time Spent With Patient Time: Total time spent is greater than 50% in coordination of care (as documented) at patient's floor/unit and/or counseling patient: Quality Stroke Does the patient have a stroke diagnosis?: No VTE Prior VTE?: No VTE Risk Level:: Medical - moderate - high VTE Device Contraindication: N/A - Device Ordered VTE Drug Contraindication: Treatment Not Indicated
--- NOTE | 2021-11-12 08:39 | P.DS_ITS ---
DS: Providers Provider Date of Service: 11/12/21 Date of admission: 11/07/21 20:17 Primary care physician: Anders Cruz MD Consults: 11/07/21 20:17 Consult to Hospitalist Routine Consulting Provider: Hospitalist Reason For Exam: H/O CVA, PRE OP CLEARANCE DS: Diagnosis Discharge Diagnosis (1) Acute hip pain: Status: Acute DS: Summary Hospital Course Hospital Course: The patient underwent a successful right total hip arthroplasty revision, they were transferred to PACU and then to the floor to recover. During their stay, their vitals were stable, afebrile at 98.6. Labs were unremarkable, H/H 12.2/35.6. POD 1 they were started on Aspirin 325mg po bid for DVT ppx, they also received Physical Therapy services twice a day. Prior to discharge, their dressing was changed, incision clean dry and intact, new Aquacel dressing applied and the plan was to be discharged to rehab. Time Spent with Patient Time attestation: Total time spent providing and/or coordinating discharge services: Discharge coordination time: Less than 30 minutes Quality: Safe Use of Opioids Does Pt have an Active Cancer Diagnosis on the Problem List?: No Quality: Stroke Does the patient have a stroke diagnosis?: No Physical Exam Vital Signs: Vital Signs: Last Vital Signs Temp 98.6 F 11/12/21 07:26 Pulse 70 11/12/21 07:26 Resp 14 11/12/21 07:26 BP 123/64 11/12/21 07:26 Pulse Ox 92 11/12/21 07:26 O2 Del Method 11/12/21 07:26 O2 Flow Rate 3.0 11/10/21 19:57 BMI result Body Mass Index 32.1 Const: General: cooperative, healthy appearing and no acute distress Resp: Effort & Inspection: normal respiratory effort and able to speak in complete sentences Cardio: Rate: regular rate Peripheral pulses: Peripheral pulses 2+ throughout GI: Palpation (GI): Soft to palpation Skin: Lesions: no lesions Rashes: no rashes Extrem: Other: Right hip Aquacel is clean, dry, and intact. Calf is supple and nontender. NVI. DS: Data Data Completed and Pending Labs on day of discharge: Laboratory Results - last 24 hr 09/22/22 09/22/22 09/22/22 05:14 05:14 06:02 WBC 11.0 H RBC 3.79 L Hgb 12.2 L Hct 35.6 L MCV 93.9 MCH 32.2 MCHC 34.3 RDW 12.2 Plt Count 199 MPV 10.2 Immature Gran % (Auto) 0.5 H Neut % (Auto) 63.8 Lymph % (Auto) 17.8 L [place] % (Auto) 15.7 H Eos % (Auto) 1.8 Baso % (Auto) 0.4 Lymph # (Auto) 2.0 [place] # (Auto) 1.7 H Eos # (Auto) 0.2 Baso # (Auto) 0.0 Abs Immat Gran (auto) 0.05 H Absolute Neuts (auto) 7.0 Absolute Nucleated RBC 0.000 Nucleated RBC % (auto) 0.0 Smear Tech's Comments VERIFIED Sodium 139 Potassium 4.2 Chloride 98 Carbon Dioxide 31 H Anion Gap 14 BUN 13 Creatinine 0.87 Estim Creat Clear Calc 92.9 Estimated GFR > 60 Fasting Glucose 111 H Calcium 8.3 L D COVID-19 ([facility]AN) Negative COVID-19 Clin Com See Note Discharge Plan Discharge Patient Disposition: Xfer SNF Discharge Diagnosis: REVISION RT RAY Discharge Medications: New aspirin 325 mg Tablet 325 mg PO BID 42 Days Qty: 84 0RF oxycodone 5 mg Tablet 5 mg PO Q4H PRN (Reason: Pain, Moderate (Pain Scale 4-6) 7 Days Qty: 42 0RF Rx Instructions: Partial Fill upon patient request. acetaminophen 325 mg Tablet 650 mg PO Q6H PRN (Reason: Pain, Mild (Pain Scale 1-3)) 30 Days Qty: 240 0RF Continued diphenhydramine HCl [Banophen] 25 mg capsule 1 cap PO Q8H PRN (Reason: Itching) timolol maleate 0.5 % drops 1 drp ophthalmic (eye) DAILY Rx Instructions: admin into each eye simvastatin 20 mg tablet 1 tab PO BEDTIME docusate sodium [DOK] 100 mg tablet 100 mg PO BID fluoxetine 20 mg capsule 20 mg PO DAILY gabapentin 600 mg tablet 600 mg PO TID lisinopril 40 mg tablet 40 mg PO DAILY metoprolol tartrate 100 mg tablet 100 mg PO BID trazodone 150 mg tablet 150 mg PO BEDTIME MDD 150 PRN (Reason: Insomnia) amlodipine 5 mg tablet 5 mg PO DAILY chlorthalidone 25 mg tablet 12.5 mg PO DAILY finasteride 5 mg tablet 5 mg PO DAILY 90 Days Qty: 90 2RF tamsulosin 0.4 mg capsule 0.4 mg PO DAILY 90 Days Qty: 90 2RF Discontinued aspirin [Adult Low Dose Aspirin] 81 mg tablet,delayed release (DR/EC) 81 mg PO DAILY Discharge Orders: Discharge Order (Routine); Ordered 11/12/21 Ordered By: Carol Moncada Diet: Regular diet Activity on Discharge: Use cane or walker Stand Alone Forms: Patient Portal Discharge page Care Plan Goals: Restore function of joint Health Concerns: None Plan of Treatment: Physical Therapy Pain management DVT prophylaxis Assessment: * Physical Therapy for Total hip arthroplasty: wbat, posterior precautions, gait training, ROM, strength * Limit stair climbing * No showering, no tub bath-keep dressing clean, dry and intact * No driving x6 weeks * Continue Aspirin 325 mg bid twice a day x 6 weeks * Follow up with [facility] [place] [facility] in 2 weeks
[2021-11-12 11:36] VITALS: BP 130/63; PULSE 67; RESP 14; TEMP 36.3; O2SAT 92
== END 2021-11-12 13:30 | disposition skilled nursing facility (03) | DRG 468 ==
LOC: HO.ED 20:26 → HO.EDOVER 20:29 → HO.S3 11-09 06:02
PROVIDERS: Orthopaedic Surgery; Physician Assistant Medical; Admitting Provider Physician Assistant; Emergency Provider Emergency Medicine Emergency Medical Services; PCP Internal Medicine; Visit Provider Physician Assistant
PROC: 0SRR03A Replacement of Right Hip Joint, Femoral Surface with Ceramic Synthetic Substitute, Uncemented, Open Approach (ICD-10-PCS; principal; 2021-11-10 11:50)
DX: T84.010A Broken internal right hip prosthesis, initial encounter (principal); Y79.2 Prosthetic and other implants, materials and accessory orthopedic devices associated with adverse incidents; N40.0 Benign prostatic hyperplasia without lower urinary tract symptoms; I10 Essential (primary) hypertension; Z20.822 Contact with and (suspected) exposure to COVID-19; Z87.891 Personal history of nicotine dependence; Z88.8 Allergy status to other drugs, medicaments and biological substances; Z79.899 Other long term (current) drug therapy
CPT/HCPCS: 36415; 71045; 72170; 73502; 73700; 80048; 80053; 81001; 83735; 85025; 85610; 85730; 86850; 86900; 86901; 87635; 93005; 97110; 97116; 97162; 97166; 97535; 99285; C1776; J0131; J0690; J1100; J1170; J2250; J2405; J2795; J3010

== ENCOUNTER 2021-12-20 16:28 | Outpatient (REF) | payer MEDICARE, MEDICAID, SELFPAY ==
--- NOTE | ~2021-12-20 | XR_ITS ---
EXAMINATION: XR PELVIS CLINICAL INFORMATION: Pain COMPARISON: 11/10/2021 TECHNIQUE: AP view of the pelvis. FINDINGS: Two part prosthesis on the right. No evidence for hardware failure on this single image. The left femoral head contour is smooth. There is felt to be some axial loss of joint space. Vascular calcifications are noted. Some irregularity of the inferior articulation in the hip may be degenerative. Mild degeneration of the pubic bone. Some degenerative change along the greater trochanter of the left hip. Partially visualized SI joints are grossly patent. Partial visualization of the hardware in the inferior lumbar region. XR/XR pelvis 1-2V IMPRESSION: No acute finding. The left femoral head contour is smooth. There is some evidence of degenerative change.
== END 2021-12-20 16:29 | disposition home or self-care (01) ==
LOC: HO.HOSX 16:28
PROVIDERS: Visit Provider Physician Assistant
DX: M25.559 Pain in unspecified hip (principal)
CPT/HCPCS: 72170

== ENCOUNTER 2022-01-29 14:16 | Outpatient (REF) | payer MEDICARE, MEDICAID, SELFPAY ==
[2022-01-29 16:29] LABS: PSA,Total (Free>4and<10) 2.85 ng/mL (0.00-4.00)
== END 2022-01-29 14:17 | disposition home or self-care (01) ==
LOC: HO.LAB 14:16
PROVIDERS: PCP Internal Medicine; Visit Provider Urology
DX: Z12.5 Encounter for screening for malignant neoplasm of prostate (principal); N40.1 Benign prostatic hyperplasia with lower urinary tract symptoms; N13.8 Other obstructive and reflux uropathy
CPT/HCPCS: 36415; 84153

== ENCOUNTER → 2022-02-03 10:00 | Outpatient (BNVA) | payer MEDICARE, MEDICAID, SELFPAY | PROVIDERS: PCP Internal Medicine; Visit Provider Urology | DX: N32.81 Overactive bladder (principal); N40.1 Benign prostatic hyperplasia with lower urinary tract symptoms; N13.8 Other obstructive and reflux uropathy; Z79.899 Other long term (current) drug therapy | CPT/HCPCS: 51798; 99212 ==

== ENCOUNTER → 2022-02-11 10:50 | Outpatient (BNVA) | payer MEDICARE, MEDICAID, SELFPAY | PROVIDERS: PCP Internal Medicine; Visit Provider Physician Assistant | DX: Z47.1 Aftercare following joint replacement surgery (principal); Z96.641 Presence of right artificial hip joint | CPT/HCPCS: 99212 ==

== ENCOUNTER → 2022-05-13 13:08 | Outpatient (BNVA) | payer MEDICARE, MEDICAID, SELFPAY | PROVIDERS: PCP Internal Medicine; Visit Provider Physician Assistant | DX: Z96.641 Presence of right artificial hip joint (principal) | CPT/HCPCS: 99212 ==

== ENCOUNTER 2022-06-21 10:30 | Outpatient (REF) | payer MEDICARE, MEDICAID, SELFPAY | END 2022-06-21 10:31 | disposition home or self-care (01) | LOC: HO.HOSX 10:30 | PROVIDERS: Visit Provider Physician Assistant | DX: Z13.89 Encounter for screening for other disorder (principal) ==

== ENCOUNTER → 2022-07-12 11:34 | Outpatient (BNVA) | payer MEDICARE, MEDICAID, SELFPAY | PROVIDERS: PCP Internal Medicine; Referring Provider Internal Medicine; Visit Provider Surgery | DX: D17.0 Benign lipomatous neoplasm of skin and subcutaneous tissue of head, face and neck (principal) | CPT/HCPCS: 99202 ==

== ENCOUNTER 2022-08-17 09:09 | Day surgery (SDC) | payer MEDICARE, MEDICAID, SELFPAY ==
[2022-08-17] VITALS (7 sets, daily range): BP systolic 97–113; BP diastolic 66–70; PULSE 48–57; RESP 12–18; TEMP 36.7–36.8; O2SAT 92–97; BMI 32.2
[2022-08-17] MEDS: Lactated Ringers 1,000 ML 50 ML IVCONT (10:13)
--- NOTE | 2022-08-17 10:33 | MHC.SHP ---
Pre-Procedural Eval Section A Date of Service: 08/17/22 The patient is an INPATIENT: No Changes since office visit: No Cold of Flu in the past 2 weeks, No New Medical Problems, No Changes in Medication and No Patient answered all questions The History & Physical has been completed within 30 days and I have reviewed it.: Yes Section B Chief Complaint: Benign lipomatous neoplasm, unspecified Allergies: Allergies Allergy/AdvReac Type Severity Reaction Status Date / Time atorvastatin AdvReac Constipation Verified 08/17/22 09:48 - Rectal Bleeding Plan I have reviewed the history and physical and performed a pertinent physical examination on my patient. No changes have occurred unless specified. Time Spent With Patient Time: Total time managing care of this patient today ____ minutes.
--- NOTE | 2022-08-17 12:08 | P.CONAN_ITS ---
[facility] Active Problems Active Problems: All Active Problems (Updated 08/13/22 @ 08:43 by Kailee Cash RN) Precordial chest pain (Acute) SOB (shortness of breath) (Acute) Elevated PSA (Acute) BPH w urinary obs/LUTS (Acute) Colon cancer screening (Acute) Status post revision of total hip replacement (Acute) Overactive bladder (Acute) Lipoma (Acute) Essential hypertension (Acute) Past Medical History Medical History Acute hip pain Back pain Depression Essential hypertension Fall High cholesterol HTN (hypertension) Prosthetic hip implant failure Stroke Family History Family History Father Cardiac pacemaker Mother No problems noted. Family history of problems with anesthesia: No Surgical History Surgical History History of colonoscopy History of hip surgery History of spinal fusion History of Problems with Anesthesia: No Social History Social History Household Members: None Housing: Apartment Do you presently have visiting nurse or other home services: No Patient Tobacco Use Status: Former Tobacco user Quit Date: smoke free for over 40 years Tobacco use type: Cigarette e-Cigarette/Vaping Use: Never Used Substance Use Type: Marijuana Are you DNR?: No Advance Directives: No Advance Directives Information Provided: Yes Nutrition Risks: No Nutritional Risk service: No Current occupational status: disabled Meds Allergies Allergy/AdvReac Type Severity Reaction Status Date / Time atorvastatin AdvReac Constipation Verified 08/17/22 09:48 - Rectal Bleeding Active Medications: Current Medications Lactated Ringer's (Lr) 1,000 mls @ 50 mls/hr IVCONT .Q20H SUJIT Last Admin: 08/17/22 10:13 Dose: 50 mls/hr Home Medications Medication Instructions Recorded Confirmed Last Taken Type docusate sodium 100 mg tablet (DOK) 100 mg PO BID 03/05/20 08/13/22 11/07/21 History fluoxetine 20 mg capsule 20 mg PO DAILY 03/05/20 08/13/22 08/17/22 09:50 History gabapentin 600 mg tablet 600 mg PO TID 03/05/20 08/13/22 08/17/22 09:50 History lisinopril 40 mg tablet 40 mg PO DAILY 03/05/20 08/13/22 Unknown History trazodone 150 mg tablet 150 mg PO BEDTIME PRN Insomnia 03/05/20 08/13/22 Unknown History amlodipine 5 mg tablet 5 mg PO DAILY 08/04/21 08/13/22 08/17/22 09:50 History chlorthalidone 25 mg tablet 12.5 mg PO DAILY 08/04/21 08/13/22 11/07/21 History diphenhydramine HCl 25 mg capsule 1 cap PO Q8H PRN Itching 11/08/21 02/03/22 Unknown History (Banophen) simvastatin 20 mg tablet 1 tab PO BEDTIME 11/08/21 08/13/22 11/07/21 History timolol maleate 0.5 % eye drops 1 drp ophthalmic (eye) DAILY 11/08/21 08/13/22 11/07/21 History aspirin 81 mg tablet,delayed 81 mg PO QAM 02/03/22 08/13/22 07/20/22 History release metoprolol tartrate 75 mg tablet 75 mg PO BID 08/13/22 08/13/22 08/17/22 09:50 History Exam Exam Date and Time: August 17, 2022 120 Height,Weight and Vital Signs: Height 5 ft 9 in Weight 98.883 kg Last Vital Signs Temp 98.1 F 08/17/22 09:46 Pulse 53 08/17/22 09:46 Resp 18 08/17/22 09:46 BP 106/66 08/17/22 09:46 Pulse Ox 95 08/17/22 09:46 O2 Del Method Room Air 08/17/22 09:46 Airway Mallampati Class: II TM Dist: >3cm Neck ROM: Full Heart: RRR Lungs: CTA Assessment and Plan Final Anesthetic Review Family History of Problems with Anesthesia: No History of Problems with Anesthesia: No ASA Class: II Final Preanesthetic Review: Meds/Allgs Chart Reviewed, Consent Obtained/Reviewed and Anes Risks/Benef Reviewed Patient Risk: Low Procedure Risk: Low Anesthetic Plan Anesthetic Plan: MAC: Disposition: Standard PACU
--- NOTE | 2022-08-17 12:51 | HO.POSTANES ---
Post Anesthesia Evaluation Post Anesthesia Evaluation Date of Service: 08/17/22 Vital Signs: Vital Signs Temp Pulse Resp BP Pulse Ox O2 Del Method 08/17/22 09:46 98.1 F 53 18 106/66 95 Room Air Anesthesia: Monitored Mental Status: Awake Pain Control: Satisfactory Nausea/Vomiting: None Hydration: Adequate Anesthesia-Related Issues: No Anes. Related Issues
--- NOTE | 2022-08-17 12:54 | W.PM.OPN ---
Operative Note Operative Note Date of Service: 08/17/22 Narrative: Preoperative diagnosis: [] large deep posterior neck lipoma Postop diagnosis: [] same Procedure [] excision posterior neck lipoma Surgeon: [] Bruno Upsetter Setter Up: [] rick Whitfield Type of Anesthesia: [] Mac Indication for surgery: [] final specimen approximately 5 x 4 cm consistent with a large lipoma Findings: [] patient brought to the OR, placed in your table in supine position, after adequate level of MAC anesthesia was induced, patient was was placed in right lateral decubitus position. Posterior neck was prepped and draped in usual sterile fashion. Wound was infiltrated with 0.5% Marcaine/ 1% lidocaine. A transverse incision was made over lipoma in question of the lower neck/ upper back and carried down through skin, subcutaneous tissue, were a large lipoma was uneventfully excised and combination of blunt and Bovie dissection. Specimen sent to pathology. Wound was irrigated, secured hemostasis, and closed using interrupted inverted dermal 3-0 Vicryl sutures followed by Steri-Strips and sterile dressings. Sponge, needle, and instrument counts were reported to be correct. Patient tolerated the procedure well and emerged anesthesia stable condition. EBL minimal
== END 2022-08-17 14:49 | disposition home or self-care (01) ==
PROVIDERS: PCP Internal Medicine; Visit Provider Surgery
PROC: (CPT 21552; principal; 2022-08-17 12:10)
DX: D17.0 Benign lipomatous neoplasm of skin and subcutaneous tissue of head, face and neck (principal); I10 Essential (primary) hypertension; N40.0 Benign prostatic hyperplasia without lower urinary tract symptoms; N32.81 Overactive bladder; Z86.73 Personal history of transient ischemic attack (TIA), and cerebral infarction without residual deficits; Z91.81 History of falling; Z96.641 Presence of right artificial hip joint; Z88.8 Allergy status to other drugs, medicaments and biological substances; Z98.890 Other specified postprocedural states; Z87.891 Personal history of nicotine dependence; Z79.82 Long term (current) use of aspirin; Z79.899 Other long term (current) drug therapy
CPT/HCPCS: 21552; 88304; J0690; J1100; J1170; J2250; J2405; J2795

== ENCOUNTER → 2022-08-25 09:47 | Outpatient (BNVA) | payer MEDICARE, MEDICAID, SELFPAY | PROVIDERS: Visit Provider Surgery | DX: T79.2XXD Traumatic secondary and recurrent hemorrhage and seroma, subsequent encounter (principal); D17.9 Benign lipomatous neoplasm, unspecified | CPT/HCPCS: 10021 ==

== ENCOUNTER 2022-08-30 09:04 | Outpatient (REF) | payer MEDICARE, MEDICAID, SELFPAY | END 2022-08-30 09:05 | disposition home or self-care (01) | LOC: HO.HOSX 09:04 | PROVIDERS: Visit Provider Orthopaedic Surgery | DX: Z13.89 Encounter for screening for other disorder (principal) ==

== ENCOUNTER 2022-09-01 09:26 | Outpatient (AMB) | payer MEDICARE, MEDICAID, SELFPAY ==
[2022-09-01 09:48] VITALS: BP 140/79; PULSE 60
--- NOTE | 2022-09-01 09:48 | A.OFFVIS_ITS ---
Intake Vital Signs 09/01/22 09:48 Weight 210 lb BP 140/79 H Blood Pressure Location Rt brachial Position Sitting Pulse 60 Intake Visit Reasons: s/p excision neck lipoma, wound check Intake Note: Patient here s/p exc on post neck. Patient reports pocket under skin filled up really fast after last visit. C/o severe pain. Unable to sleep well. Patient not eating due to constant pain and discomfort. Gameplay Engineer Required: No Accompanied by: Self / Same As Patient Allergies atorvastatin Adverse Reaction (Verified 09/01/22 09:50) Constipation - Rectal Bleeding HPI HPI Comments History of Present Illness Details Patient presents with a recurrence of his posterior neck lipoma excision seroma/hematoma. [facility] Medical History Acute hip pain Back pain Depression Essential hypertension Fall High cholesterol HTN (hypertension) Prosthetic hip implant failure Stroke Surgical History History of colonoscopy History of hip surgery History of spinal fusion Family History Father Cardiac pacemaker Mother No problems noted. Social History Household Members: None Housing: Apartment Do you presently have visiting nurse or other home services: No Patient Tobacco Use Status: Former Tobacco user Quit Date: smoke free for over 40 years Tobacco use type: Cigarette e-Cigarette/Vaping Use: Never Used Substance Use Type: Marijuana service: No Current occupational status: disabled Physical Exam Vital Signs: Last Vital Signs Pulse 60 09/01/22 09:48 BP 140/79 H 09/01/22 09:48 Back/Spine/Pelvis Other: Incision is clean dry and intact. Fluctuant collection. Under sterile technique this was aspirated approximately 20 cc of seroma/old blood was retrieved. Patient tolerated procedure well. Post procedure dressing was ap plied. Assessment & Plan Assessment & Plan (1) Seroma due to trauma: Code(s): T79.2XXA - Traumatic secondary and recurrent hemorrhage and seroma, initial encounter (2) Lipoma: Code(s): D17.9 - Benign lipomatous neoplasm, unspecified Plan Patient has been given local wound instructions, ice packs p.r.n., and avoid strenuous activities to lessen the likelihood of recurrence. Should this happen, instructed to contact the office will otherwise follow up p.r.n.. Coding Level of Care Code Global (59829) Diagnoses Seroma due to trauma T79.2XXA Lipoma D17.9
== END 2022-09-01 09:59 | disposition home or self-care (01) ==
PROVIDERS: PCP Internal Medicine; Visit Provider Surgery
DX: T79.2XXA Traumatic secondary and recurrent hemorrhage and seroma, initial encounter (principal); D17.9 Benign lipomatous neoplasm, unspecified
CPT/HCPCS: 99024

== ENCOUNTER → 2022-09-01 09:26 | Outpatient (BNVA) | payer MEDICARE, MEDICAID, SELFPAY | PROVIDERS: PCP Internal Medicine; Visit Provider Surgery ==

== ENCOUNTER 2022-09-08 07:55 | Outpatient (AMB) | payer MEDICARE, MEDICAID, SELFPAY ==
[2022-09-08 08:09] VITALS: BP 126/71; PULSE 59
--- NOTE | 2022-09-08 08:09 | A.OFFVIS_ITS ---
Intake Vital Signs 09/08/22 08:09 Weight 214 lb BP 126/71 Blood Pressure Location Rt brachial Position Sitting Pulse 59 Intake Visit Reasons: Seroma post neck Intake Note: Patient here c/o seroma on post neck grew shortly after being drained. Patient states it feels hard like a bone. Can Technician Required: No Accompanied by: Self / Same As Patient Allergies atorvastatin Adverse Reaction (Verified 09/08/22 08:10) Constipation - Rectal Bleeding HPI HPI Comments History of Present Illness Details Patient presents for evaluation. He has had a small recurrence of his seroma. [facility] Medical History Acute hip pain Back pain Depression Essential hypertension Fall High cholesterol HTN (hypertension) Prosthetic hip implant failure Stroke Surgical History History of colonoscopy History of hip surgery History of spinal fusion Family History Father Cardiac pacemaker Mother No problems noted. Social History Household Members: None Housing: Apartment Do you presently have visiting nurse or other home services: No Patient Tobacco Use Status: Former Tobacco user Quit Date: smoke free for over 40 years Tobacco use type: Cigarette e-Cigarette/Vaping Use: Never Used Substance Use Type: Marijuana service: No Current occupational status: disabled Physical Exam Vital Signs: Last Vital Signs Pulse 59 09/08/22 08:09 BP 126/71 09/08/22 08:09 Neck Other: Incisions well healed. Patient has a marked currently reduced seroma but wishes to have it drained on the LEs. Under sterile technique, only 5 cc were retrieved. Dressing was applied. Patient tolerated this well. Assessment & Plan Assessment & Plan (1) Seroma due to trauma: Code(s): T79.2XXA - Traumatic secondary and recurrent hemorrhage and seroma, initial encounter Plan Patient has been given local instructions, and will follow-up p.r.n.. Coding Level of Care Code Global (07115) Diagnoses Seroma due to trauma T79.2XXA
== END 2022-09-08 08:39 | disposition home or self-care (01) ==
PROVIDERS: PCP Internal Medicine; Visit Provider Surgery
DX: T79.2XXA Traumatic secondary and recurrent hemorrhage and seroma, initial encounter (principal)
CPT/HCPCS: 99024

== ENCOUNTER → 2022-09-08 07:55 | Outpatient (BNVA) | payer MEDICARE, MEDICAID, SELFPAY | PROVIDERS: PCP Internal Medicine; Visit Provider Surgery ==

== ENCOUNTER 2022-09-20 12:02 | Outpatient (REF) | payer MEDICARE, MEDICAID, SELFPAY | END 2022-09-20 12:03 | disposition home or self-care (01) | LOC: HO.HOSX 12:02 | PROVIDERS: Visit Provider Orthopaedic Surgery | DX: M25.559 Pain in unspecified hip (principal) ==

== ENCOUNTER 2023-02-01 15:21 | Outpatient (REF) | payer MEDICARE, SELFPAY ==
--- NOTE | ~2023-02-01 | XR_ITS ---
EXAMINATION: XR CHEST CLINICAL INFORMATION: Shortness of breath. COMPARISON: None available. TECHNIQUE: 2 views of the chest were obtained. FINDINGS: The cardiomediastinal silhouette is within normal limits. There is no focal lung consolidation or pleural effusion. The bony structures and soft tissues are unremarkable. XR/XR chest 2V IMPRESSION: No active cardiopulmonary disease.
== END 2023-02-01 15:22 | disposition home or self-care (01) ==
LOC: HO.HHCX 15:21
PROVIDERS: Visit Provider Internal Medicine
DX: R06.02 Shortness of breath (principal)
CPT/HCPCS: 71046

== ENCOUNTER 2023-02-03 14:26 | Outpatient (REF) | payer MEDICARE, MEDICAID, SELFPAY ==
[2023-02-03 15:39] LABS: B Type Natriuretic Peptide 60 pg/mL (<100)
== END 2023-02-03 14:27 | disposition home or self-care (01) ==
LOC: HO.LAB 14:26
PROVIDERS: Visit Provider Internal Medicine
DX: R06.02 Shortness of breath (principal)
CPT/HCPCS: 36415; 83880

== ENCOUNTER 2023-03-10 10:59 | Outpatient (REF) | payer MEDICARE, MEDICAID, SELFPAY | END 2023-03-10 11:00 | disposition home or self-care (01) | LOC: HO.LAB 10:59 | PROVIDERS: PCP Internal Medicine; Visit Provider Urology | DX: N48.1 Balanitis (principal); N41.9 Inflammatory disease of prostate, unspecified; N32.81 Overactive bladder; N20.0 Calculus of kidney; N30.40 Irradiation cystitis without hematuria; Z79.899 Other long term (current) drug therapy | CPT/HCPCS: 51798; 81003; 87086; 87147; 99212 ==

== ENCOUNTER 2023-03-10 10:59 | Outpatient (AMB) | payer MEDICARE, MEDICAID, SELFPAY ==
--- NOTE | 2023-03-10 11:11 | A.OFFVIS_ITS ---
Intake Intake Visit Reasons: follow up/PVR (no showed last appt) Intake Note: Patient is Present for Follow Up Urology Medication: Finasteride, Oxybutynin,Tamsulosin Antibiotic Allergies: \None Blood Thinners: Aspirin PVR: 18 Allergies atorvastatin Adverse Reaction (Verified 02/03/23 11:37) Constipation - Rectal Bleeding HPI HPI Comments History of Present Illness Details Maverick is a very pleasant male. He is a patient of Dr. Lofton. he is seen for the following urologic conditions - elevated PSA - BPH Reporting dysuria Also with split urinary stream Examination of penis shows balanitis with narrowing of meatal opening Recommend combination topical therapy On exam evidence of prostatitis. Treat with 1 month antibiotics plus short-term course of prednisone Lower urinary tract symptoms Current management finasteride and tamsulosin Does notice progressive hesitancy of stream and weakness of stream PSA 07/10 3.9, 09/10 6, 05/12 3.1, 02/11 2.9 Prior prostate biopsy 03/12 BPH therapeutic plan - repeat PSA in 6 months [facility] Medical History Acute hip pain Back pain Depression Essential hypertension Fall High cholesterol HTN (hypertension) Prosthetic hip implant failure Stroke Surgical History History of colonoscopy History of hip surgery History of spinal fusion Family History Father Cardiac pacemaker Mother No problems noted. Social History (System 02/03/23 @ 11:37 by Dilcia Givens) Household Members: None Housing: Apartment Do you presently have visiting nurse or other home services: No Comment: medicated for pain Patient Tobacco Use Status: Former Tobacco user Quit Date: smoke free for over 40 years Tobacco use type: Cigarette e-Cigarette/Vaping Use: Never Used Substance Use Type: Marijuana service: No Current occupational status: disabled Review of Systems Const Denies chills and Denies fever(s) Card Reports no additional complaints and Denies syncope Resp Denies cough GI Denies abdominal pain and Denies heartburn Reports as per HPI and Denies change in libido Neuro Denies syncope Psych Denies change in libido Endo Denies change in libido Physical Exam Const General: cooperative, healthy appearing, comfortable and no acute distress Orientation/consciousness: patient oriented x3 HEENT Face and sinus: Yes normal facial exam Mouth: moist mucous membranes Neck Neck: Yes normal visual inspection, Yes full ROM and Yes trachea midline Chest Chest palpation & inspection: normal inspection of the chest Resp Effort & Inspection: normal respiratory effort, able to speak in complete sentences and no respiratory distress GI Inspection: Yes normal to inspection Back/Spine/Pelvis Cervical Spine: normal cervical lordosis Thoracic/Lumbar Spine: thoracic and lumbar spine normal to inspection Skin General skin exam: no rashes or lesions noted Neuro General: patient oriented x3, gait normal, tone normal and moves all extremities Extrem General: Yes normal to inspection and Yes capillary refill normal Office Procedures Post Void Residual Post Residual Void Post Void Residual (PVR): 18 [id number] Void Residual by ultrasound Results AMB Urinalysis, Automated UA Leukoctes 15 Sosa/uL Last Edit by FANY Culp on 03/10/23 11:29 UA Nitrite Negative Last Edit by Lynette Atkinson Vijaya on 03/10/23 11:29 UA Urobilinogen 0.2 mg/dL Last Edit by Lynette Atkinson Vijaya on 03/10/23 11:2 9 UA Protein 15 mg/dL Last Edit by FANY Culp on 03/10/23 11:29 UA pH 5.5 Last Edit by Lynette Atkinson [facility] on 03/10/23 11:29 UA Blood 0 Nadeem/uL Last Edit by Lynette Atkinson Vijaya on 03/10/23 11:29 UA Specific Henriette 1.030 Last Edit by FANY Culp on 03/10/23 11: 29 UA Ketone Positive Last Edit by Lynette Atkinson Vijaya on 03/10/23 11:29 UA Bilirubin 1 mg/dL Last Edit by FANY Culp on 03/10/23 11:29 UA Glucose 0 mg/dL Last Edit by Lynette Atkinson [facility] on 03/10/23 11:29 Results Reviewed Results Reviewed: Laboratory Last Values Urine pH (Auto) 5.5 03/10/23 11:28 Specific Henriette (Auto) 1.030 03/10/23 11:28 Urine Protein (Auto) 15 mg/dL 03/10/23 11:28 Glucose (UA)(Auto) 0 mg/dL 03/10/23 11:28 Urine Ketones (Auto) Positive 03/10/23 11:28 Urine Blood (Auto) 0 Nadeem/uL 03/10/23 11:28 Urine Nitrite (Auto) Negative 03/10/23 11:28 Urine Bilirubin (Auto) 1 mg/dL 03/10/23 11:28 Urine Urobilinogen (Auto) 0.2 mg/dL 03/10/23 11:28 Leukocyte Esterase (Auto) 15 Sosa/uL 03/10/23 11:28 Assessment & Plan Assessment & Plan (1) Balanitis: Code(s): N48.1 - Balanitis (2) Prostatitis: Code(s): N41.9 - Inflammatory disease of prostate, unspecified Plan Inflamed meatus Prostatitis on exam 2 month follow-up Orders: Orders AMB Post Void Residual by ultrasound Today N32.81 - Overactive bladder AMB Urinalysis Automated Today Z13.9 - Encounter for screening, unspecified Urine Culture Today N39.0 - Urinary tract infection, site not specified Medications: New prednisone 20 mg PO DAILY 5 tabs 0RF 5 days N20.0 - Calculus of kidney, N41.9 - Inflammatory disease of prostate, unspecified clotrimazole-betamethasone 1-0.05 % Apply thin coat 2 times per day 1 appl topical BID 45 grams 0RF 4 weeks N48.1 - Balanitis sulfamethoxazole-trimethoprim 800-160 mg (Bactrim DS) 1 tab PO BID 56 tabs 0RF 28 days 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 No major barriers to patient understanding were identified. An opportunity to ask questions regarding the treatment plan was provided. All questions were answered. The patient expressed understanding and agreement with the above treatment plan. The patient is aware they should contact our office by phone for worsening of their current condition or the appearance of new urologic symptoms. Compliance is encouraged with any medications and followup testing that is ordered. It is a privilege to participate in the urologic care of your patient. If you have any questions or concerns regarding treatment for the above conditions, or other urologic issues, please do not hesitate to contact me. The office telephone contact is [phone]. This note is constructed using voice recognition software. While every effort has been made to ensure accuracy food counter attendant errors may have been included. Yours sincerely, Dr Gerson Verdugo MD, [facility] - Urology Providers of Expert, Compassionate Care for the Genitourinary System Coding Level of Care Code Est Pt Level 4 (07416) Diagnoses Balanitis N48.1 Prostatitis N41.9 CPT Codes Post Residual Void - PVR CPT Code: 52806-Imeo Void Residual by ultrasound ([id number])
== END 2023-03-10 11:43 | disposition home or self-care (01) ==
PROVIDERS: PCP Internal Medicine; Visit Provider Urology
DX: N48.1 Balanitis (principal); N41.9 Inflammatory disease of prostate, unspecified; Z13.9 Encounter for screening, unspecified
CPT/HCPCS: 99214

== ENCOUNTER 2023-03-14 07:26 | Outpatient (REF) | payer MEDICARE, MEDICAID, SELFPAY ==
--- NOTE | ~2023-03-14 | XR_ITS ---
EXAMINATION: XR PELVIS CLINICAL INFORMATION: Hip pain COMPARISON: 12/21/2021 TECHNIQUE: AP view of the pelvis. FINDINGS: Visualized bony pelvis is intact, SI joints within normal limits. Right total hip replacement is identified with satisfactory position of the femoral and acetabular components. Alignment is satisfactory. Small calcification identified adjacent to the right lesser trochanter. Mild left hip joint narrowing. No fracture or dislocation. Phleboliths and vascular calcifications. XR/XR pelvis 1-2V IMPRESSION: Right total hip replacement. No acute bony pathology.
== END 2023-03-14 07:27 | disposition home or self-care (01) ==
LOC: HO.HOSX 07:26
PROVIDERS: Visit Provider Orthopaedic Surgery
DX: T84.84XA Pain due to internal orthopedic prosthetic devices, implants and grafts, initial encounter (principal); Z96.641 Presence of right artificial hip joint
CPT/HCPCS: 72170; 99212

== ENCOUNTER 2023-03-14 11:55 | Outpatient (AMB) | payer MEDICARE, MEDICAID, SELFPAY ==
--- NOTE | 2023-03-14 12:04 | A.OFFVIS_ITS ---
Intake Intake Visit Reasons: OV-Revision RT RAY, 11/10/21 NE Intake Note: Maverick is a 72 year old male who presents today for a follow up of his right hip s/p Right RAY 11/10/2021 Allergies atorvastatin Adverse Reaction (Verified 02/03/23 11:37) Constipation - Rectal Bleeding HPI OV-Revision RT RAY, 11/10/21 NE HPI Details Maverick is a 72 year old man who presents S/P right revision RAY, DOS: 11/10/21. He is doing well with left hip pain greater than right. He has occasional thight pain with inclement weather. [facility] Medical History Depression Fall Prosthetic hip implant failure Acute hip pain Essential hypertension Back pain High cholesterol HTN (hypertension) Stroke Surgical History History of spinal fusion History of hip surgery History of colonoscopy Family History Father Cardiac pacemaker Mother No problems noted. Social History Household Members: None Housing: Apartment Do you presently have visiting nurse or other home services: No Comment: medicated for pain Patient Tobacco Use Status: Former Tobacco user Quit Date: smoke free for over 40 years Tobacco use type: Cigarette e-Cigarette/Vaping Use: Never Used Substance Use Type: Marijuana service: No Current occupational status: disabled Review of Systems Const All systems reviewed & are unremarkable except as noted in HPI and below Physical Exam Const General: no acute distress, alert and awake Orientation/consciousness: patient oriented x3 HEENT Head: Yes normocephalic and Yes atraumatic Eyes EOM: EOMs intact bilaterally Resp Effort & Inspection: normal respiratory effort and able to speak in complete sentences Cardio Jugular venous distension: no JVD Skin General skin exam: turgor normal Rashes: no rashes Neuro General: patient oriented x3 Extrem Other: Nl gait No hip pain with ROM right hip Left hip with + impingement Psych Appearance: grossly normal Affect: normal affect Attitude: cooperative Results Reviewed Results Reviewed: I personally reviewed relevant radiographs. Right RAY in expected post operative position with no hardware complications or evidence of loosening Left hip mild OA Assessment & Plan Assessment & Plan (1) Status post revision of total hip replacement: Comment: Right total hip arthroplasty revision Code(s): Z96.649 - Presence of unspecified artificial hip joint Plan: Doing well s/p right RAY Left hip pain occasionally No intervention warranted Continue activity as toelrated Plan Prepared for Lawson Bowie MD by Driss Harding, medical record consultant, on 03/14/23 at 12:12 PM, EST. Orders: Orders XR pelvis 1-2V 03/14/23 M25.559 - Pain in unspecified hip Coding Level of Care Code Est Pt Level 3 (46413) Diagnoses Status post revision of total hip replacement Z96.649
== END 2023-03-14 12:48 | disposition home or self-care (01) ==
PROVIDERS: PCP Internal Medicine; Visit Provider Orthopaedic Surgery
DX: Z47.1 Aftercare following joint replacement surgery (principal); Z96.641 Presence of right artificial hip joint
CPT/HCPCS: 99213

== ENCOUNTER 2023-05-13 10:44 | Outpatient (AMB) | payer MEDICARE, MEDICAID, SELFPAY ==
--- NOTE | 2023-05-13 10:56 | MHC.OFFVIS ---
Intake Intake Visit Reasons: 2m follow up Intake Note: Patient is Present for Follow Up Urology Medication:Finasteride, Oxybutynin, Tamsulosin Antibiotic Allergies: None Blood Thinners: Aspirin Confirmed Pharmacy: [facility] Pharmacy PVR: 0 Allergies atorvastatin Adverse Reaction (Verified 05/13/23 10:57) Constipation - Rectal Bleeding Medication List - Last Reconciled 05/13/23 by Gerson Verdugo MD acetaminophen-codeine 300-15 mg 1 tab PO Q8H PRN amlodipine 5 mg PO DAILY aspirin 81 mg PO QAM chlorthalidone 12.5 mg PO DAILY clotrimazole-betamethasone 1-0.05 % 1 appl topical BID 4 weeks diphenhydramine HCl (Banophen) 1 cap PO Q8H PRN docusate sodium (DOK) 100 mg PO BID finasteride 5 mg PO DAILY 90 days fluoxetine 20 mg PO DAILY gabapentin 600 mg PO TID [left foot heel lift As directed] lisinopril 40 mg PO DAILY metoprolol tartrate 75 mg PO BID oxybutynin chloride ER 5 mg PO DAILY 30 days prednisone 20 mg PO DAILY 5 days simvastatin 1 tab PO BEDTIME sulfamethoxazole-trimethoprim 800-160 mg (Bactrim DS) 1 tab PO BID 28 days tamsulosin 0.4 mg PO DAILY 90 days timolol maleate 0.5% 1 drp ophthalmic (eye) DAILY HPI HPI Comments History of Present Illness Details Maverick is a very pleasant male. He is a patient of Dr. Lofton. he is seen for the following urologic conditions - elevated PSA - BPH - balanitis Significant improvement of urination with management of balanitis Did well with prostatitis management P.r.n. follow-up Lower urinary tract symptoms Current management finasteride and tamsulosin Does notice progressive hesitancy of stream and weakness of stream PSA 07/10 3.9, 09/10 6, 05/12 3.1, 02/11 2.9 Prior prostate biopsy 03/12 BPH therapeutic plan - repeat PSA in 6 months [facility] Medical History Depression Fall Prosthetic hip implant failure Acute hip pain Essential hypertension Back pain High cholesterol HTN (hypertension) Stroke Surgical History History of spinal fusion History of hip surgery History of colonoscopy Family History Father Cardiac pacemaker Mother No problems noted. Social History Household Members: None Housing: Apartment Do you presently have visiting nurse or other home services: No Comment: medicated for pain Patient Tobacco Use Status: Former Tobacco user Quit Date: smoke free for over 40 years Tobacco use type: Cigarette e-Cigarette/Vaping Use: Never Used Substance Use Type: Marijuana service: No Current occupational status: disabled Review of Systems Const Denies chills and Denies fever(s) Card Reports no additional complaints and Denies syncope Resp Denies cough GI Denies abdominal pain and Denies heartburn Reports as per HPI and Denies change in libido Neuro Denies syncope Psych Denies change in libido Endo Denies change in libido Physical Exam Const General: cooperative, healthy appearing, comfortable and no acute distress Orientation/consciousness: patient oriented x3 HEENT Face and sinus: Yes normal facial exam Mouth: moist mucous membranes Neck Neck: Yes normal visual inspection, Yes full ROM and Yes trachea midline Chest Chest palpation & inspection: normal inspection of the chest Resp Effort & Inspection: normal respiratory effort, able to speak in complete sentences and no respiratory distress GI Inspection: Yes normal to inspection Back/Spine/Pelvis Cervical Spine: normal cervical lordosis Thoracic/Lumbar Spine: thoracic and lumbar spine normal to inspection Skin General skin exam: no rashes or lesions noted Neuro General: patient oriented x3, gait normal, tone normal and moves all extremities Extrem General: Yes normal to inspection and Yes capillary refill normal Office Procedures Post Void Residual Post Residual Void Post Void Residual (PVR): 0 [id number]-[id number] Void Residual by ultrasound Assessment & Plan Assessment & Plan (1) BPH w urinary obs/LUTS: Code(s): N40.1 - Benign prostatic hyperplasia with lower urinary tract symptoms; N13.8 - Other obstructive and reflux uropathy (2) Elevated PSA: Code(s): R97.20 - Elevated prostate specific antigen [PSA] Plan P.r.n. follow-up Orders: Orders AMB Post Void Residual by ultrasound Today N32.81 - Overactive bladder Patient Instructions: Imaging studies, laboratory and physical exam results were discussed and reviewed in detail. No major barriers to patient understanding were identified. An opportunity to ask questions regarding the treatment plan was provided. All questions were answered. The patient expressed understanding and agreement with the above treatment plan. The patient is aware they should contact our office by phone for worsening of their current condition or the appearance of new urologic symptoms. Compliance is encouraged with any medications and followup testing that is ordered. It is a privilege to participate in the urologic care of your patient. If you have any questions or concerns regarding treatment for the above conditions, or other urologic issues, please do not hesitate to contact me. The office telephone contact is [phone]. This note is constructed using voice recognition software. While every effort has been made to ensure accuracy golf club facer errors may have been included. Yours sincerely, Dr Gerson Verdugo MD, [facility] - Urology Providers of Expert, Compassionate Care for the Genitourinary System Coding Level of Care Code Est Pt Level 3 (15130) Diagnoses BPH w urinary obs/LUTS N40.1; N13.8 Elevated PSA R97.20 CPT Codes Post Residual Void - PVR CPT Code: 02894-[id number] Void Residual by ultrasound ([id number])
== END 2023-05-13 11:15 | disposition home or self-care (01) ==
PROVIDERS: PCP Internal Medicine; Visit Provider Urology
DX: N40.1 Benign prostatic hyperplasia with lower urinary tract symptoms (principal); N13.8 Other obstructive and reflux uropathy; R97.20 Elevated prostate specific antigen [PSA]
CPT/HCPCS: 99213

== ENCOUNTER → 2023-05-13 10:44 | Outpatient (BNVA) | payer MEDICARE, MEDICAID, SELFPAY | PROVIDERS: PCP Internal Medicine; Visit Provider Urology | DX: N40.1 Benign prostatic hyperplasia with lower urinary tract symptoms (principal); N13.8 Other obstructive and reflux uropathy; R97.20 Elevated prostate specific antigen [PSA]; Z79.82 Long term (current) use of aspirin; Z79.52 Long term (current) use of systemic steroids; Z79.899 Other long term (current) drug therapy | CPT/HCPCS: 51798; 99212 ==

== ENCOUNTER 2023-07-02 14:04 | Emergency (ER) | payer OTHER, MEDICARE, MEDICAID, SELFPAY ==
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
[2023-07-02 14:19] VITALS: BP 137/56; PULSE 62; RESP 17; TEMP 36.3; O2SAT 95; BMI 31.1
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
[2023-07-02 16:37] VITALS: BP 138/64; PULSE 66; RESP 18; TEMP 36.6; O2SAT 97
[2023-07-02 17:06] VITALS: BP 138/64; PULSE 66; RESP 18; TEMP 36.6; O2SAT 97
== END 2023-07-02 17:07 | disposition home or self-care (01) ==
PROVIDERS: Emergency Provider Emergency Medicine; PCP Internal Medicine
DX: S16.1XXA Strain of muscle, fascia and tendon at neck level, initial encounter (principal); S93.401A Sprain of unspecified ligament of right ankle, initial encounter; V43.52XA Car driver injured in collision with other type car in traffic accident, initial encounter; Y93.9 Activity, unspecified; Y92.410 Unspecified street and highway as the place of occurrence of the external cause; Y99.9 Unspecified external cause status; M25.571 Pain in right ankle and joints of right foot; M54.2 Cervicalgia; M54.9 Dorsalgia, unspecified; I10 Essential (primary) hypertension; Z79.899 Other long term (current) drug therapy
CPT/HCPCS: 72040; 72100; 73600; 99283

== ENCOUNTER 2023-07-29 12:07 | Outpatient (REF) | payer MEDICARE, MEDICAID, SELFPAY | END 2023-07-29 12:08 | disposition home or self-care (01) | LOC: HO.SH 12:07 | PROVIDERS: Visit Provider Internal Medicine | DX: Z13.89 Encounter for screening for other disorder (principal) ==

== ENCOUNTER 2023-11-04 09:18 | Outpatient (REF) | payer OTHER, MEDICAID, SELFPAY ==
--- NOTE | ~2023-11-04 | XR_ITS ---
EXAMINATION: XR CERVICAL SPINE CLINICAL INFORMATION: Patient states right-sided anterior neck pain. Denies injury. COMPARISON: 07/02/2023 TECHNIQUE: 5 views of the cervical spine inclusive of bilateral oblique views. FINDINGS: No significant scoliosis. There is mild straightening of the normal lordosis. Normal C1-2 relationship. Craniocervical junction appears intact. No subluxations identified aside from a minimal degenerative stairstep retrolisthesis C5 on C6 and C6 on C7. Severe disc degeneration with spurring and endplate sclerosis C5-6 and C6-7. Associated degenerative facet sclerosis and uncinate hypertrophy at these levels. Oblique views demonstrate moderate neural foraminal narrowing on the right at C3-4, C4-5, and C5-6, and relatively focally on the left at C5-6. No prevertebral soft tissue abnormalities. There are nuchal ligament calcifications dorsally. There are mild carotid calcifications left greater than right. XR/XR cervical spine 4V IMPRESSION: -No acute findings of the cervical spine. -Moderate spondylosis, most significant spanning C5-C7. See above for details. Electronically signed by: Timmy Leblanc MD 01/16/2024 12:34 PM [facility]
[2023-11-04 12:33] LABS: Alanine Aminotransferase 30 U/L (0-40); Albumin Level 4.1 g/dL (3.5-5.0); Alkaline Phosphatase 39 U/L (39-117); Anion Gap 13 (12-20); Aspartate Amino Transferase 20 U/L (5-37); Bilirubin Total 0.5 mg/dL (0.0-1.0); Blood Urea Nitrogen 14 mg/dL (9-16); Calcium 9.5 mg/dL (8.4-10.2); Carbon Dioxide 33 mmol/L (22-29); Chloride 103 mmol/L (96-108); Cholesterol 135 mg/dL (<200); Estimated Glomerular Filt Rate > 60; Glucose Random 106 mg/dL (60-115); HDL Cholesterol 43 mg/dL (>40); LDL Cholesterol Calculated 63 mg/dL (<100); Potassium 4.5 mmol/L (3.3-5.1); Sodium 144 mmol/L (135-145); Total Protein 7.1 g/dL (6.5-8.0); Triglycerides 149 mg/dL (<150)
[2023-11-04 12:54] LABS: Prostate Specific Antigen Scr 1.68 ng/mL (<0.05-4.0)
== END 2023-11-04 09:19 | disposition home or self-care (01) ==
LOC: HO.HHCL 09:18
PROVIDERS: Visit Provider Internal Medicine
DX: M54.2 Cervicalgia (principal); E78.2 Mixed hyperlipidemia; R97.20 Elevated prostate specific antigen [PSA]; I10 Essential (primary) hypertension; Z12.5 Encounter for screening for malignant neoplasm of prostate
CPT/HCPCS: 36415; 72050; 80053; 80061; 84153

== ENCOUNTER → 2023-11-04 09:31 | Outpatient (BNV) | payer MEDICARE, MEDICAID, SELFPAY | PROVIDERS: Visit Provider Radiology Diagnostic Radiology | DX: M54.2 Cervicalgia (principal) | CPT/HCPCS: 72050 ==

== ENCOUNTER 2023-12-09 10:43 | Outpatient (AMB) | payer OTHER, SELFPAY ==
--- NOTE | 2023-12-09 10:45 | A.OFFVIS_ITS ---
Intake Visit Reasons: OV- RT RAY follow up, 11/10/21 NE Intake Note: Maverick is a 72 year old male who presents today for a follow up of his right hip s/p Right RAY 11/10/2021. Patient reports his pain returned about 6 months ago. Denies injury. His pain is located at the lateral aspect of hip as well as a numbness and tingling that radiates down his leg. He uses a cane with ambulation. Allergies acetaminophen [From Percocet] Allergy (Verified 12/09/23 10:51) Itching oxycodone [From Percocet] Allergy (Verified 12/09/23 10:51) Itching HPI HPI OV- RT RAY follow up, 11/10/21 NE: Details: Maverick is a 72 year old male who presents today for a follow up of his right hip s/p Right RAY 11/10/2021. Patient reports his pain returned about 6 months ago. Denies injury. His pain is located at the lateral aspect of hip as well as a numbness and tingling that radiates down his leg. He uses a cane with ambulation. He has a history of spinal fusion. He denies groin pain. [facility] Medical History (Updated 12/09/23 @ 10:59 by Lawson Bowie MD) Depression Fall Prosthetic hip implant failure Acute hip pain Essential hypertension Back pain High cholesterol HTN (hypertension) Stroke Surgical History (Updated 12/09/23 @ 11:03 by Lawson Bowie MD) History of spinal fusion History of hip surgery History of colonoscopy Family History Father Cardiac pacemaker Mother No problems noted. Social History Household Members: None Housing: Apartment Do you presently have visiting nurse or other home services: No Comment: medicated for pain Patient Tobacco Use Status: Former Tobacco user Tobacco use type: Cigarette e-Cigarette/Vaping Use: Never Used Substance Use Type: Marijuana service: No Current occupational status: disabled Physical Exam Extrem Other: No pain with passive hip range of motion on the right. Pain with resisted hip flexion and abduction. Question multiple beats of clonus subjectively diminished sensation over the lateral thigh Assessment & Plan Assessment & Plan (1) Low back pain with bilateral sciatica: Code(s): M54.42 - Lumbago with sciatica, left side; M54.41 - Lumbago with sciatica, right side Category: Medical Plan: Bilateral radicular pain with back pain that has been worsening over the past several months. MRI lumbar spine ordered (2) History of hip surgery: Comment: 2021- [facility] Code(s): Z98.890 - Other specified postprocedural states Category: Surgical Plan: Hip replacement performed at outside hospital with no evidence of hip pathology at this time. Orders: Orders MR lumbar spine wo con Today M54.41 - Lumbago with sciatica, right side, M54.42 - Lumbago with sciatica, left side Coding Level of Care Code Est Pt Level 4 (98702) Diagnoses Low back pain with bilateral sciatica M54.42; M54.41 History of hip surgery Z98.890
== END 2023-12-09 11:05 | disposition home or self-care (01) ==
PROVIDERS: PCP Internal Medicine; Visit Provider Orthopaedic Surgery
DX: M54.42 Lumbago with sciatica, left side (principal); M54.41 Lumbago with sciatica, right side; Z96.641 Presence of right artificial hip joint
CPT/HCPCS: 99214

== ENCOUNTER → 2023-12-09 10:43 | Outpatient (BNVA) | payer MEDICAID, SELFPAY | PROVIDERS: PCP Internal Medicine; Visit Provider Orthopaedic Surgery | DX: M54.42 Lumbago with sciatica, left side (principal); M54.41 Lumbago with sciatica, right side; Z98.890 Other specified postprocedural states | CPT/HCPCS: 99212 ==

== ENCOUNTER 2024-06-12 11:53 | Outpatient (REF) | payer OTHER, SELFPAY ==
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
--- OUTSIDE RECORDS SUMMARY | 2024-06-12 14:20 | XMS_ITS | Encounter Summary ---
Author Organization [employer] Address [address] [facility] [address] [address] Care Team Providers Care Cabin Outfitter Name Role Phone Anders Contreras MD Primary Care Provide r Simone El PharmD Unavailable [phone] Encounter Details Date Type Department Care Team ([facility] st Contact Info) Description 03/15/2022 Orders Only [facility] MED & PEDS [address] [place] [address] Lynette Browning LPN Social History Tobacco Use Types Packs/Day Years Used Date Smoking Tobacco: Never Assessed Sex and Gender Information Value Date Recorded Sex Assigned at Male 12/21/2021 10:15 AM EDT Legal Sex Male 10:15 AM EDT Gender Identity Male 12/21/2021 10:15 AM EDT Sexual Orientation Straight 12/21/2021 10 :15 AM EDT documented as of this encounter Plan of Treatment Not on file documented as of this encounter Visit Diagnoses Not on filedocumented in this encounter Care Teams Cabin Outfitter Relationship Specialty Start Date End Date Anders Contreras MD [address] [place], [place] [id number] PCP - General Internal Medicine 11/27/13 Simone El, PharmD [address] [place], [place] [phone] Pharmacist Internal Medicine 05/03/22 documented as of this encounter
--- OUTSIDE RECORDS SUMMARY | 2024-06-12 14:20 | XMS_ITS | Encounter Summary ---
Author Organization [employer] Address [address] [facility] [address] [place] [address] Care Team Providers Care Wreath Inspector Name Role Phone Anders Contreras MD Primary Care Provide r Simone El PharmD Unavailable [phone] Encounter Details Date Type Department Care Team ([facility] st Contact Info) Description 02/24/2022 Orders Only [facility] MED & PEDS [address] [place] [address] Lynette Browning LPN Social History Tobacco Use Types Packs/Day Years Used Date Smoking Tobacco: Never Assessed Sex and Gender Information Value Date Recorded Sex Assigned at Male 12/21/2021 10:15 AM EDT Legal Sex Male 10:15 AM EDT Gender Identity Male 12/21/2021 10:15 AM EDT Sexual Orientation Straight 12/21/2021 10 :15 AM EDT COVID-19 Exposure Response Date Recorded In the last 10 days, have yo u been in contact with someone who was confirmed or suspected to have Coronavirus/COVID-19? No / Unsure 02/11/2022 11:42 AM EST documented as of this encounter Plan of Treatment Not on file documented as of this encounter Visit Diagnoses Not on filedocumented in this encounter Care Teams Wreath Inspector Relationship Specialty Start Date End Date Anders Contreras MD [address] [place] [address] PCP - General Internal Medicine 11/27/13 Simone El, PharmD [address] [place] [address] Pharmacist Internal Medicine 05/03/22 documented as of this encounter
--- OUTSIDE RECORDS SUMMARY | 2024-06-12 14:20 | XMS_ITS | Encounter Summary ---
Author Organization [employer] Address [address] [place] [address] Care Team Providers Care Private Branch Exchange Operator Name Role Phone Anders Contreras MD Primary Care Provide r Simone El PharmD Unavailable [phone] Reason for Visit * Reason Comments Med Refill Encounter Details Date Type Department Care Team (Late st Contact Info) Description 06/02/2024 Refill [facility] MED & PEDS [address] [place] [address] Anders Contreras MD [address] [place] [address] Social History Tobacco Use Types Packs/Day Years Used Date Smoking Tobacco: Never Passive Smoke Exposure: Never Smokeless Tobacco: Never Alcohol Use Standard Drinks/Week Comments Not Currently 0 (1 standard drink = 0.6 oz pur e alcohol) Depression Answer Date Recorded Patient Health Questionnaire-9 Score 6 06/24/2022 Housing Stability Answer Date Recorded What is your housing situation today? I have peter aden 11/01/[address] you li ve. Do you have problems with any of the following? None of the above 11/01/2023 Food Insecurity Answer Date Recorded Within the past 12 months, y ou worried that your food would run out before you got money to buy more: Never True 11/01/2023 Within the past 12 months,th e food you bought just didn't last and you didn't have enough money to get more: Never True 11/2023 Transportation Answer Date Recorded In the past 12 months, has l ack of transportation kept you from medical appts, meetings, work or from getting things needed for daily living? No 11/01/2023 Utilities Answer Date Recorded In the past 12 months, has t he electric, gas, oil or water company threatened to shut off services in your home? No 11/01/2023 Depression Answer Date Recorded Patient Health Questionnaire-2 Score 2 06/24/2022 Internet Access Answer Date Recorded Internet Access Q1 Yes 11/01/2023 Internet Access Q2 Not on file 11/01/2023 Sex and Gender Information Value Date Recorded Sex Assigned at Male 12/21/2021 10:15 AM EDT Legal Sex Male 10:15 AM EDT Gender Identity Male 12/21/2021 10:15 AM EDT Sexual Orientation Straight 12/21/2021 10 :15 AM EDT documented as of this encounter Plan of Treatment Not on file documented as of this encounter Goals Goal Patient Goal Type Associated Problems Recent Progress Patient-Stated? Author Blood Pressure < 140/90 Blood Pressure Hypertension 120/72(2024 11:04 AM EDT) No Simone El PharmD Blood Pressure < 140/90 Blood Pressure Preventative health care 120/72(2024 11:04 AM EDT) No Simone El PharmD documented as of this encounter Visit Diagnoses Not on filedocumented in this encounter Additional Health Concerns Assessment Noted Time PHQ-9 Depression Total Score: 6 06/25/19 23 2:28 PM EDT documented as of this encounter Care Teams Private Branch Exchange Operator Relationship Specialty Start Date End Date Anders Contreras MD [address] [place] [address] PCP - General Internal Medicine 11/27/13 Simone El PharmD [address] [place] [address] Pharmacist Internal Medicine 05/03/22 documented as of this encounter
--- OUTSIDE RECORDS SUMMARY | 2024-06-12 14:20 | XMS_ITS | Encounter Summary ---
Author Organization [employer] Address [address] [facility] [address] [place] [address] Care Team Providers Care Channel Cementer Outsole Machine Name Role Phone Anders Contreras MD Primary Care Provide r Simone El PharmD Unavailable [phone] Encounter Details Date Type Department Care Team ([facility] st Contact Info) Description 07/01/2022 Abstract [facility] [address] [place] [address] Anders Contreras MD [address] [place] [address] Social History Tobacco Use Types Packs/Day Years Used Date Smoking Tobacco: Never Smokeless Tobacco: Never Alcohol Use Standard Drinks/Week Comments Not Currently 0 (1 standard drink = 0.6 oz pur e alcohol) Depression Answer Date Recorded Patient Health Questionnaire-9 Score 6 06/24/2022 Depression Answer Date Recorded Patient Health Questionnaire-2 Score 2 06/24/2022 Sex and Gender Information Value Date Recorded [...] suspected to have Coronavirus/COVID-19? No / Unsure 06/24/2022 2:04 PM EDT documented as of this encounter Plan of Treatment Not on file documented as of this encounter Goals Goal Patient Goal Type Associated Problems Recent Progress Patient-Stated? Author Blood Pressure < 140/90 Blood Pressure Hypertension 120/72(2024 11:04 AM EDT) No Simone El, Carmen documented as of this encounter Procedures Procedure Name Priority Date/Time Associated Diagnosis Comments COLONOSCOPY Routine 01/14/2014 documented in this encounter Results * Hm Colonoscopy (01/14/2014) Colonoscopy Normal Normal 01/14/2014 Narrative Marcela Su - 01/14/2014 8:31 AM EST Recommended 10 year follow up us Historical Provider HEALTH MAINTENANCE Edited Result - Final documented in this encounter Visit Diagnoses Not on filedocumented in this encounter Additional Health Concerns Assessment Noted Time PHQ-9 Depression Total Score: 6 06/25/19 23 2:28 PM EDT documented as of this encounter Care Teams Channel Cementer Outsole Machine Relationship Specialty Start Date End Date Anders Contreras MD [address] [place] [address] PCP - General Internal Medicine 11/27/13 Simone El, IvanaD [address] [place] [address] Pharmacist Internal Medicine 05/03/22 documented as of this encounter
--- OUTSIDE RECORDS SUMMARY | 2024-06-12 14:20 | XMS_ITS | Encounter Summary ---
Author Organization [employer] Address [address] [place] [address] Care Team Providers Care Environmental Associate Name Role Phone Anders Contreras MD Primary Care Provide r Simone El PharmD Unavailable [phone] Reason for Visit * Reason Comments Med Refill Encounter Details Date Type Department Care Team (Late st Contact Info) Description 06/06/2024 Refill [facility] [address] [place] [address] Simone El, PharmD [address] [place] [address] Essential (primary) hypertension Social History Tobacco Use Types Packs/Day Years [...] documented as of this encounter Visit Diagnoses Diagnosis Essential (primary) hypertension Unspecified essential hypertension documented in this encounter Additional Health Concerns Assessment Noted Time PHQ-9 Depression Total Score: 6 06/25/19 23 2:28 PM EDT documented as of this encounter Care Teams Environmental Associate Relationship Specialty Start Date End Date Anders Contreras MD [address] [place] [address] PCP - General Internal Medicine 11/27/13 Simone El PharmD [address] [place] [address] Pharmacist Internal Medicine 05/03/22 documented as of this encounter
--- OUTSIDE RECORDS SUMMARY | 2024-06-12 14:20 | XMS_ITS | Encounter Summary ---
Author Organization [employer] Address [address] [facility] [address] [place] [address] Care Team Providers Care Laborer Egg Producing Farm Name Role Phone Anders Contreras MD Primary Care Provide r Simone El PharmD Unavailable [phone] Encounter Details Date Type Department Care Team ([facility] st Contact Info) Description 05/06/2022 Orders Only [facility] MEDICINE [address] [place] [address] Simone El, PharmD [address] [place] [address] Social History Tobacco Use Types Packs/Day Years Used Date Smoking Tobacco: Never Smokeless Tobacco: Never Alcohol Use Standard Drinks/Week Comments Not Currently 0 (1 standard drink = 0.6 oz pur e alcohol) Sex and Gender Information Value Date Recorded Sex Assigned at Male 12/21/2021 10:15 AM EDT Legal Sex Male 10:15 AM EDT Gender Identity Male 12/21/2021 10:15 AM EDT Sexual Orientation Straight 12/21/2021 10 :15 AM EDT COVID-19 Exposure Response Date Recorded In the last 10 days, have yo u been in contact with someone who was confirmed or suspected to have Coronavirus/COVID-19? Unable to assess 05/03/2022 2:20 PM EDT documented as of this encounter Plan of Treatment Not on file documented as of this encounter Goals Goal Patient Goal Type Associated Problems Recent Progress Patient-Stated? Author Blood Pressure < 140/90 Blood Pressure Hypertension 120/72(04/22/ 2025 11:04 AM EDT) No El, Jerril, Carmen documented as of this encounter Visit Diagnoses Not on filedocumented in this encounter Care Teams Laborer Egg Producing Farm Relationship Specialty Start Date End Date Anders Contreras MD [address] [place] [address] PCP - General Internal Medicine 11/27/13 Simone El, IvanaD [address] [place] [address] Pharmacist Internal Medicine 05/03/22 documented as of this encounter
--- OUTSIDE RECORDS SUMMARY | 2024-06-12 14:20 | XMS_ITS | Encounter Summary ---
Author Organization [employer] Address [address] [facility] [address] [place] [address] Care Team Providers Care Rn Advice Name Role Phone Anders Contreras MD Primary Care Provide r Simone El PharmD Unavailable [phone] Reason for Visit * Reason Comments Med Refill Encounter Details Date Type Department Care Team (Late st Contact Info) Description 09/12/2023 Refill [facility] MED & PEDS [address] [place] [address] Annetta Lopez MD [address] [place] [address] Social History Tobacco Use Types Packs/Day Years Used Date Smoking Tobacco: Never Passive Smoke Exposure: Never Smokeless Tobacco: Never Alcohol Use Standard Drinks/Week Comments Not Currently 0 (1 standard drink = 0.6 oz pur e alcohol) Depression Answer Date Recorded Patient Health Questionnaire-9 Score 6 06/24/2022 Housing Stability Answer Date Recorded What is your housing situation today? I have peter aden 12/09/[address] you li ve. Do you have problems with any of the following? None of the above 12/09/2022 Food Insecurity Answer Date Recorded Within the past 12 months, y ou worried that your food would run out before you got money to buy more: Never True 12/09/2022 Within the past 12 months,th e food you bought just didn't last and you didn't have enough money to get more: Never True Transportation Answer Date Recorded In the past 12 months, has l ack of transportation kept you from medical appts, meetings, work or from getting things needed for daily living? No 12/09/2022 Utilities Answer Date Recorded In the past 12 months, has t he electric, gas, oil or water company threatened to shut off services in your home? No 12/09/2022 Depression Answer Date Recorded Patient Health Questionnaire-2 [...] documented as of this encounter Care Teams Rn Advice Relationship Specialty Start Date End Date Anders Contreras MD [address] [place] [address] PCP - General Internal Medicine 11/27/13 Simone El PharmD [address] [place] [address] Pharmacist Internal Medicine 05/03/22 documented as of this encounter
--- OUTSIDE RECORDS SUMMARY | 2024-06-12 14:21 | XMS_ITS | Encounter Summary ---
Author Organization [employer] Address [address] [place] [address] Care Team Providers Care Clothespin Drier Operator Name Role Phone Anders Contreras MD Primary Care Provide r Simone El PharmD Unavailable [phone] Reason for Visit * Reason Comments Med Refill Encounter Details Date Type Department Care Team ([facility] st Contact Info) Description 03/22/2024 Refill [facility] MEDICINE [address] [place] [address] Anders Contreras MD [address] [place] [address] Social History Tobacco Use Types Packs/Day Years [...] documented as of this encounter Care Teams Clothespin Drier Operator Relationship Specialty Start Date End Date Anders Contreras MD [address] [place] [address] PCP - General Internal Medicine 11/27/13 Simone El PharmD [address] [place] [address] Pharmacist Internal Medicine 05/03/22 documented as of this encounter
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
--- OUTSIDE RECORDS SUMMARY | 2024-06-12 14:21 | XMS_ITS | Encounter Summary ---
Author Organization [employer] Address [address] [facility] [address] [address] [place] [address] Care Team Providers Care Sensor Technician Name Role Phone Anders Contreras MD Primary Care Provide r Simone El PharmD Unavailable [phone] Reason for Visit * Reason Comments Med Refill Encounter Details Date Type Department Care Team ([facility] st Contact Info) Description 01/18/2024 Refill [facility] [address] [place] [address] Anders Contreras MD [address] [place] [address] Social History Tobacco Use Types Packs/Day Years [...] documented as of this encounter Care Teams Sensor Technician Relationship Specialty Start Date End Date Anders Contreras MD [address] [place] [address] PCP - General Internal Medicine 11/27/13 Simone El PharmD [address] [place] [address] Pharmacist Internal Medicine 05/03/22 documented as of this encounter
--- OUTSIDE RECORDS SUMMARY | 2024-06-12 14:21 | XMS_ITS | Encounter Summary ---
Author Organization [employer] Address [address] [facility] [address] [place] [address] Care Team Providers Care Hand Surgeon Name Role Phone Anders Contreras MD Primary Care Provide r Simone El PharmD Unavailable [phone] Encounter Details Date Type Department Care Team (Latest Contact Info) Description 06/12/2024 Travel Social History Tobacco Use Types Packs/Day Years [...] is your housing situation today? I have peterdallas aden 11/01/[address] you [...] documented as of this encounter Care Teams Hand Surgeon Relationship Specialty Start Date End Date Anders Contreras MD [address] [place] [address] PCP - General Internal Medicine 11/27/13 Simone El PharmD [address] [place] [address] Pharmacist Internal Medicine 05/03/22 documented as of this encounter
--- OUTSIDE RECORDS SUMMARY | 2024-06-12 14:21 | XMS_ITS | Clinical Summary ---
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 Perry Frey MD 06/12/2024 12:50 PM EDT Dictated By: Perry Ford MD Signed By: <Electronically signed by Perry Brown MDin OV> 06/12/24 1250 DD/ 1153 TD/TT: 06/12/24 1200 Branch Associate: us Anders Chacko MD IMG XR PROCEDURES Fin al Result * XR Wrist 3+ Views Left (06/12/2024 11:53 AM EDT) Anatomical Region Laterality Modality Upper Extremities, Wrist Left Radiogr aphic Imaging 06/12/2024 11:5 3 AM EDT Narrative 06/12/2024 1:46 PM EDT ?[facility] ?[address] ?[place] [address] ?XRay Report ? Signed ? Patient: Maverick Palmer ? MR#: [id number] ? : 1950 ?Acct:[id number] ? Age/Sex: 73 / M ?ADM Date: 06/12/24 ? Loc: HO.HHCX ? Attending Dr: Anders Cruz MD ? Ordering Physician: Anders Cruz MD ?? Date of Service: 06/12/24 ?? Procedure(s): XR wrist LT min 3V ?? Accession Number(s): [id number] ? cc: Anders Cruz MD ? EXAMINATION: [...] Leblanc MD ??06/12/2024 01:43 PM EDT RP ?? Workstation: [id number] ? Dictated By: ?Timmy Leblanc MD ? Signed By: ?<Electronically signed by Timmy Leblanc MD in OV> ?06/12/24 1343 ? DD/ 1153 ? TD/TT: 06/12/24 1200 ? Branch Associate: ? Procedure Note [facility]orik[facility]oreter, Image - 06/12/2024 [place] [address] XRay Report Signed Patient: Maverick Palmer MR#: [id number] : 3Acct:[id number] Age/Sex: 73 / MADM Date: 06/12/24 Loc: HO.HHCX Attending Dr: Anders Cruz MD Ordering Physician: Anders Cruz MD Date of Service: 06/12/24 Procedure(s): XR wrist LT min 3V Accession Number(s): [id number] cc: Anders Cruz MD EXAMINATION: XR WRIST, [...] Timmy Leblanc MD 06/12/2024 01:43 PM EDT RP Dictated By: Timmy Leblanc MD Signed By: <Electronically signed by Timmy Leblanc MD in OV> 06/12/24 1343 DD/ 1153 TD/TT: 06/12/24 1200 Branch Associate: us Adners Chacko MD IMG XR PROCEDURES Fin al Result * Lipid Panel, Standard (11/04/2023 9:20 AM EDT) Triglycerides 149 <150 mg/dL [facility] Comment:Desirable Triglyceri de: less than 150 mg/dLBorderline High Triglyceride 150-199 mg/dLHigh Triglyceride: 200-499 mg/dLVery High Triglyceride: greater than or equal to 5OO mg/dL Cholesterol 135 <200 mg/dL [facility] Comment:Desirable Cholestero l: less than 200 mg/dLBorderline High Cholesterol: 200-239 mg/dLHigh Cholesterol: greater than 239 mg/dL LDL Cholesterol Calculated 63 <100 mg/dL [facility] Comment:Desirable LDL: less than 100 mg/dLNear Optimal/Above Optimal LDL: 110- 129 mg/dLBorderline High LDL: 130-159 mg/dLHigh LDL: 160-189 mg/dLVery High LDL: greater than or equal to 190 mg/dL HDL Cholesterol 43 >40 mg/dL [facility] Comment:Desirable HDL: great er than 40 mg/dL Note: This HDL assay may give artificially low results in patients with liver disease. Blood Venous blood specimen / Unknown 11/04/2023 9:20 AM EDT 11/04/2023 11:48 AM EDT us Anders Chacko MD LAB BLOOD ORDERABLES Final Result [facility] [address] [place] [address] [phone] * Hepatitis C Antibody with Reflex to HCV, RNA, Quantitative, Real-Time PCR (07/12/2022 9:56 AM EDT) Hepatitis C Antibody NON-REACT JEFF NON-REACT JEFF [facility] [place] [facility] Index 0.04 <1.00 [facility] Comment: HCV antibody was non-reactive. There is no laboratory evidence of HCV infection. In most cases, no further action is required. However, if recent HCV exposure is suspected, a test for HCV RNA (test code 23607) is suggested. For additional information please refer to http://education.TAKO/faq/UZT14h4 (This link is being provided for informational/ educational purposes only.) Blood Venous blood specimen / Unknown 07/12/2022 9:56 AM EDT 07/12/2022 9:56 AM EDT Narrative [facility] - 07/13/2022 1:20 AM EDT FASTING:YES FASTING: YES Anders Chacko MD LAB BLOOD ORDERABLES Final Result [facility] [address], [place] [address] [facility] [place] [facility] [address] [place] [address] * Colonoscopy (01/14/2014) Pathologist [facility] Colonoscopy Normal Normal 01/14/2014 Marcela Bryson - 01/14/2014 8:31 AM EST Recommended 10 year follow up Historical Provider HEALTH MAINTENANCE Edited Result - Final from Last 3 Months or Most Recently Relevant to Health Maintenance Insurance [employer] (O D-SNP) Care Teams Delivery Route Driver Relationship Specialty Start Date End Date Anders Contreras MD [address] [place] [address] PCP - General Internal Medicine 11/27/13 Simone El, IvanaD [address] [place] [address] Pharmacist Internal Medicine 05/03/22
--- OUTSIDE RECORDS SUMMARY | 2024-06-12 14:21 | XMS_ITS | Encounter Summary ---
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 Role Phone Anders Contreras MD Primary Care Provide r Simone El PharmD Unavailable [phone] Reason for Visit * Reason Onset Date Comments Appointment Request 06/12/2024 Encounter Details Date Type Department Care Team ([facility] st Contact Info) Description 06/12/2024 Telephone [facility] [address] [place] [address] Anders Contreras MD [address] [place] [address] Appointment Request Social History Tobacco Use Types Packs/Day Years [...] AM EDT documented as of this encounter Miscellaneous Notes * Telephone Encounter - Alison Daily - 06/12/2024 12:08 PM EDT Called Patient left vm, advised to call back and schedule f/u with PCP 15 min around 09/11 for HTN.Ok to schedule if Patient calls back. documented in this encounter Plan of Treatment Not on file documented as of this encounter Goals Goal Patient Goal Type Associated Problems Recent Progress Patient-Stated? 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
== END 2024-06-12 11:54 | disposition home or self-care (01) ==
LOC: HO.HHCX 11:53
PROVIDERS: Visit Provider Internal Medicine
DX: M25.532 Pain in left wrist (principal); M79.642 Pain in left hand
CPT/HCPCS: 73110; 73130

== ENCOUNTER → 2024-06-12 11:53 | Outpatient (BNV) | payer OTHER, SELFPAY | PROVIDERS: Visit Provider Radiology Diagnostic Radiology | DX: M19.032 Primary osteoarthritis, left wrist (principal); M19.042 Primary osteoarthritis, left hand | CPT/HCPCS: 73110; 73130 ==

== ENCOUNTER 2024-07-04 20:50 | Emergency (ER) | payer OTHER, SELFPAY ==
--- NOTE | ~2024-07-04 | XR_ITS ---
CLINICAL HISTORY: chest pain 2 view chest x-ray Comparison: 02/01/2023 Findings: Lungs are clear without acute infiltrates. No pneumothorax. Heart size normal. No acute bony abnormalities. Impression: No acute processes This document has been electronically signed by: Melo Jean MD on 07/04/2024 22:13:01
--- NOTE | 2024-07-04 20:53 | ECG_ITS ---
Test Reason : CHEST PAIN Blood Pressure : */* mmHG Vent. Rate : 67 BPM Atrial Rate : 67 BPM P-R Int : 144 ms QRS Dur : 90 ms QT Int : 390 ms P-R-T Axes : 56 25 47 degrees QTcB Int : 412 ms Normal sinus rhythm Normal ECG When compared with ECG of 07-Nov-2021 20:42, No significant change was found Referred By: Carmen Arias Electronically Signed By: ABRAHAN NELSON MD
--- NOTE | 2024-07-04 20:54 | ED.CHESTPAIN ---
HPI - Chest Pain General Chief Complaint: Chest Pain Stated Complaint: chest pain Time Seen by Provider: 07/04/24 21:31 Source: patient Limitations: language barrier History of Present Illness ED Provider: Altagracia San PA-C HPI narrative: 73-year-old male with a history of hypertension, hyperlipidemia, presents with chest tightness x1 day. Patient states he is having intermittent central chest discomfort described as tightness at times. Associated ongoing cough that is productive at times, with the nasal congestion. Patient states seasonal allergies have been bothersome for him. Patient denies diaphoresis, nausea, vomiting or shortness of breath. Denies new heavy lifting or other activity that could have precipitated his discomfort. Related Data Home Medications ?Medication ?Instructions ?Recorded ?Confirmed docusate sodium 100 mg tablet (DOK) 100 mg PO BID 03/05/20 05/13/23 fluoxetine 20 mg capsule 20 mg PO DAILY 03/05/20 05/13/23 gabapentin 600 mg tablet 600 mg PO TID 03/05/20 05/13/23 lisinopril 40 mg tablet 40 mg PO DAILY 03/05/20 05/13/23 amlodipine 5 mg tablet 5 mg PO DAILY 08/04/21 05/13/23 chlorthalidone 25 mg tablet 12.5 mg PO DAILY 08/04/21 05/13/23 diphenhydramine HCl 25 mg capsule 1 cap PO Q8H PRN Itching 11/08/21 05/13/23 (Banophen) simvastatin 20 mg tablet 1 tab PO BEDTIME 11/08/21 05/13/23 timolol maleate 0.5 % eye drops 1 drp ophthalmic (eye) DAILY 11/08/21 05/13/23 aspirin 81 mg tablet,delayed 81 mg PO QAM 02/03/22 05/13/23 release metoprolol tartrate 75 mg tablet 75 mg PO BID 08/13/22 05/13/23 Previous Rx's ?Medication ?Instructions ?Recorded left foot heel lift #1 ea 02/11/22 oxybutynin chloride 5 mg 5 mg PO DAILY 30 days #30 tabs 03/15/22 tablet,extended release 24 hr acetaminophen 300 mg-codeine 15 mg 1 tab PO Q8H PRN pain #20 tabs 08/25/22 tablet clotrimazole-betamethasone 1 1 appl topical BID 4 weeks #45 03/10/23 %-0.05 % topical cream grams cyclobenzaprine 5 mg tablet 5 mg PO Q8H PRN muscle spasm #10 07/02/23 tabs lidocaine 5 % topical patch 1 patch topical DAILY #15 ea 07/02/23 (Lidoderm) naproxen 500 mg tablet 500 mg PO Q8-12H PRN pain (scale 07/02/23 score 4-6) #20 tabs finasteride 5 mg tablet 5 mg PO DAILY 90 days #90 tabs 02/06/24 tamsulosin 0.4 mg capsule 0.4 mg PO DAILY 90 days #90 caps 02/06/24 Allergies Allergy/AdvReac Type Severity Reaction Status Date / Time acetaminophen [From Percocet] Allergy Itching Verified 07/04/24 21:02 oxycodone [From Percocet] Allergy Itching Verified 07/04/24 21:02 Review of Systems Review of Systems: Yes all other systems are reviewed and are negative Constitutional: Constitutional: Denies fatigue and Denies fever(s) ENT: Reports nasal congestion Cardiovascular: Cardiovascular: Reports chest pain and Denies dyspnea Respiratory: Respiratory: Reports chest congestion, Reports cough and Denies dyspnea Gastrointestinal: Gastrointestinal: Denies abdominal pain, Denies nausea and Denies vomiting Endocrine: Endocrine: Denies fatigue PMFSH Past Medical History Attestation statement: The following information was validated with the patient. Medical History (Updated 07/05/24 @ 00:08 by NAEEM Christensen) Depression Fall Prosthetic hip implant failure Acute hip pain Essential hypertension Back pain High cholesterol HTN (hypertension) Stroke Surgical History (Updated 12/09/23 @ 11:03 by Lawson Bowie MD) History of spinal fusion History of hip surgery History of colonoscopy Family History Family History Father Cardiac pacemaker Mother No problems noted. Social History Social History Household Members: None Housing: Apartment Do you presently have visiting nurse or other home services: No Comment: medicated for pain Patient Tobacco Use Status: Former Tobacco user Tobacco use type: Cigarette Smoked in Last 30 Days: No e-Cigarette/Vaping Use: Never Used Use of substances other than those prescribed or required for medical reasons: No Substance Use Type: Marijuana Advance Directives: No Advance Directives Information Provided: Yes service: No Current occupational status: disabled Physical Exam Vital Signs: Vital Signs: Last Vital Signs Temp 98.0 F 07/05/24 00:30 Pulse 68 07/05/24 00:30 Resp 18 07/05/24 00:30 BP 138/84 07/05/24 00:30 Pulse Ox 94 07/05/24 00:30 O2 Del Method Room Air 07/05/24 00:30 BMI result Body Mass Index 30.3 Const: Other: Alert well-appearing Orientation/consciousness: patient oriented x3 Resp: Effort & Inspection: normal respiratory effort Cardio: Other: Normal peripheral perfusion Skin: Other: Warm dry no rash Neuro: General: patient oriented x3, gait normal, no focal motor deficits and CN's II-XI intact bilaterally Psych: Other: Cooperative Course Course Course Narrative: Medical Decision Making Medical Decision Making [facility] Narrative: 73-year-old male with a history of hypertension, hyperlipidemia, presents with chest tightness x1 day. Patient states he is having intermittent central chest discomfort described as tightness at times. Associated ongoing cough that is productive at times, with the nasal congestion. Patient states seasonal allergies have been bothersome for him. Patient denies diaphoresis, nausea, vomiting or shortness of breath. Denies new heavy lifting or other activity that could have precipitated his discomfort. Problem: Age, hypertension, hyperlipidemia History: Per patient I have considered the following differential diagnoses: ACS, pneumonia, viral syndrome, costochondritis, chest wall strain Plan: ACS was considered, the patient does have risk factors for coronary artery disease, screening labs including cardiac enzymes EKG and chest x-ray were obtained. Given concurrent cough with congestion, considering viral syndrome versus seasonal allergies vs pneumonia. However, the patient is afebrile, in all of his symptoms have been intermittent. The patient has no mechanism of injury to suggest chest wall strain. I have independently reviewed the following tests: Labs: No leukocytosis, not anemic, no electrolyte abnormality, troponin negative at less than 2.7 EKG: Normal sinus rhythm, rate of 67, no ischemic changes no ectopy Chest x-ray:Findings: Lungs are clear without acute infiltrates. No pneumothorax. Heart size normal. No acute bony abnormalities. Impression: No acute processes Lab Data 07/04/24 21:09 07/04/24 21:09 Labs: Lab Results 07/04/24 Range/Units 21:09 WBC 8.4 (4.8-10.8) X10*3/uL RBC 5.02 D (4.60-5.80) X10*6/uL Hgb 16.7 D (14.0-18.0) g/dl Hct 46.5 D (42.0-52.0) % MCV 92.6 (80.0-98.0) fL MCH 33.3 H (27.0-33.0) pg MCHC 35.9 (31.0-36.0) g/dl RDW 12.0 (11.0-16.0) % Plt Count 227 (160-400) X10*3/uL MPV 10.5 (9.4-12.4) fL Immature Gran % (Auto) 0.4 (0.0-0.4) % Neut % (Auto) 55.1 (45-73) % Lymph % (Auto) 21.3 (20-40) % [place] % (Auto) 8.9 (2-11) % Eos % (Auto) 13.3 H (0-4) % Baso % (Auto) 1.0 (0-2) % Lymph # (Auto) 1.8 (1.2-4.9) X10*3/uL [place] # (Auto) 0.8 (0.1-1.2) X10*3/uL Eos # (Auto) 1.1 H (0.0-0.4) X10*3/uL Baso # (Auto) 0.1 (0.0-0.2) X10*3/uL Abs Immat Gran (auto) 0.03 (0.00-0.03) X10*3/uL Absolute Neuts (auto) 4.7 (2.0-8.3) x10*3/uL Absolute Nucleated RBC 0.000 (0.0-0.012) X10*3/uL Nucleated RBC % (auto) 0.0 (0.0-0.2) /100WBC PT 10.5 L (10.9-12.4) SEC INR 0.9 (0.9-1.1) Sodium 142 (135-145) mmol/L Potassium 4.0 (3.3-5.1) mmol/L Chloride 105 (96-108) mmol/L Carbon Dioxide 29 (22-29) mmol/L Anion Gap 12 (12-20) BUN 13 (9-16) mg/dL Creatinine 1.49 H (0.5-1.4) mg/dL Estim Creat Clear Calc 51.2 Estimated GFR 46 Random Glucose 106 (60-115) mg/dL Calcium 8.9 D (8.4-10.2) mg/dL Magnesium 2.1 (1.6-2.6) mg/dL Total Bilirubin 0.5 (0.0-1.0) mg/dL AST 27 (5-37) U/L ALT 27 (0-40) U/L Alkaline Phosphatase 50 (39-117) U/L Troponin I High Sens < 2.7 (<3.5-35.0) ng/L B-Natriuretic Peptide 65 (<100) pg/mL Total Protein 7.4 (6.5-8.0) g/dL Albumin 4.3 (3.5-5.0) g/dL Discharge Plan Discharge Clinical Impression: Chest pain, Congested nose, Acute viral syndrome Patient Disposition: Home, Self-Care Instructions: Viral Syndrome (ED), Noncardiac Chest Pain (ED) Additional Instructions: All of your screening labs including a cardiac enzymes were normal there were no concerning changes on your EKG in the chest x-ray is clear. I do feel your symptoms are likely related to underlying viral syndrome and/or from your seasonal allergies. See home care instructions. Use aini-rny-vhbpizh Zyrtec for your nasal congestion, you can take this medication indefinitely. For your headache, you can use ndgb-tgr-mudncok Tylenol 1000 mg taken every 8 hours, alternated with azlj-lnr-nrluake ibuprofen 600 mg taken every 6 hours with food. Follow up with your primary care provider as needed. Prescriptions: No Action oxybutynin chloride 5 mg tablet extended release 24hr 5 mg PO DAILY 30 Days Qty: 30 0RF tamsulosin 0.4 mg capsule 0.4 mg PO DAILY 90 Days Qty: 90 2RF finasteride 5 mg tablet 5 mg PO DAILY 90 Days Qty: 90 2RF diphenhydramine HCl [Banophen] 25 mg capsule 1 cap PO Q8H PRN (Reason: Itching) timolol maleate 0.5 % drops 1 drp ophthalmic (eye) DAILY Rx Instructions: admin into each eye simvastatin 20 mg tablet 1 tab PO BEDTIME metoprolol tartrate 75 mg tablet 75 mg PO BID cyclobenzaprine 5 mg tablet 5 mg PO Q8H PRN (Reason: muscle spasm) Qty: 10 0RF lidocaine [Lidoderm] 5 % adhesive patch,medicated 1 patch topical DAILY Qty: 15 0RF Rx Instructions: leave on most painful area for up to 12 hrs naproxen 500 mg tablet 500 mg PO Q8-12H PRN (Reason: pain (scale score 4-6)) Qty: 20 0RF docusate sodium [DOK] 100 mg tablet 100 mg PO BID fluoxetine 20 mg capsule 20 mg PO DAILY gabapentin 600 mg tablet 600 mg PO TID lisinopril 40 mg tablet 40 mg PO DAILY amlodipine 5 mg tablet 5 mg PO DAILY chlorthalidone 25 mg tablet 12.5 mg PO DAILY aspirin 81 mg tablet,delayed release (DR/EC) 81 mg PO QAM (DME) left foot heel lift 1/2 inch See Rx Instructions .ROUTE .MEDSUPPLY Qty: 1 0RF Rx Instructions: As directed acetaminophen-codeine 300-15 mg tablet 1 tab PO Q8H PRN (Reason: pain) Qty: 20 0RF clotrimazole-betamethasone 1-0.05 % cream 1 appl topical BID 28 Days Qty: 45 0RF Rx Instructions: Apply thin coat 2 times per day Interventions: ED Discharge Assessment Last Done: 07/05/24 00:30 Discharge Date/Time: 07/05/24 00:31 Print Language: Burkinan
[2024-07-04 20:58] VITALS: BP 97/57; PULSE 66; RESP 20; TEMP 37; O2SAT 94; BMI 30.3
[2024-07-04 21:14] LABS: MANUAL DIFF FLAG NO
[2024-07-04 21:23] LABS: Basophils Absolute Auto 0.1 X10*3/uL (0.0-0.2); Eosinophils Absolute Auto 1.1 X10*3/uL (0.0-0.4); Eosinophils Percent Auto 13.3 % (0-4); Hematocrit 46.5 % (42.0-52.0); Hemoglobin 16.7 g/dl (14.0-18.0); Imm Gran Abs Auto 0.03 X10*3/uL (0.00-0.03); Imm Gran Pct Auto 0.4 % (0.0-0.4); Lymphocytes Absolute Auto 1.8 X10*3/uL (1.2-4.9); Lymphocytes Percent Auto 21.3 % (20-40); Mean Corpuscular HGB Conc 35.9 g/dl (31.0-36.0); Mean Corpuscular Hemoglobin 33.3 pg (27.0-33.0); Mean Corpuscular Volume 92.6 fL (80.0-98.0); Mean Platelet Volume 10.5 fL (9.4-12.4); Monocytes Absolute Auto 0.8 X10*3/uL (0.1-1.2); Monocytes Percent Auto 8.9 % (2-11); Neutrophils Absolute Auto 4.7 x10*3/uL (2.0-8.3); Neutrophils Percent Auto 55.1 % (45-73); Platelet Count 227 X10*3/uL (160-400); Red Blood Count 5.02 X10*6/uL (4.60-5.80); White Blood Count 8.4 X10*3/uL (4.8-10.8)
[2024-07-04 21:26] LABS: INTERNATIONAL NORM RATIO 0.9 (0.9-1.1); Prothrombin Time 10.5 SEC (10.9-12.4)
[2024-07-04 21:31] LABS: Alanine Aminotransferase 27 U/L (0-40); Albumin Level 4.3 g/dL (3.5-5.0); Alkaline Phosphatase 50 U/L (39-117); Anion Gap 12 (12-20); Aspartate Amino Transferase 27 U/L (5-37); Bilirubin Total 0.5 mg/dL (0.0-1.0); Blood Urea Nitrogen 13 mg/dL (9-16); Calcium 8.9 mg/dL (8.4-10.2); Carbon Dioxide 29 mmol/L (22-29); Chloride 105 mmol/L (96-108); Creatinine Clr Calc Pharmacy 51.2; Estimated Glomerular Filt Rate 46; Glucose Random 106 mg/dL (60-115); Magnesium 2.1 mg/dL (1.6-2.6); Sodium 142 mmol/L (135-145); Total Protein 7.4 g/dL (6.5-8.0)
[2024-07-04 21:34] VITALS: BP 104/59; PULSE 60; RESP 11; O2SAT 92
[2024-07-04 21:36] LABS: B Type Natriuretic Peptide 65 pg/mL (<100)
[2024-07-04 21:38] LABS: Troponin-I High Sensitivity < 2.7 ng/L (<3.5-35.0)
[2024-07-04 23:10] VITALS: BP 117/52; PULSE 60; RESP 16; O2SAT 95
[2024-07-05] VITALS: BP 138/84; PULSE 68; RESP 18; TEMP 36.7; O2SAT 94
[2024-07-05 00:30] VITALS: BP 138/84; PULSE 68; RESP 18; TEMP 36.7; O2SAT 94
== END 2024-07-05 00:31 | disposition home or self-care (01) ==
PROVIDERS: Registered Nurse Emergency; Emergency Provider Emergency Medicine; PCP Internal Medicine
DX: B34.9 Viral infection, unspecified (principal); R07.89 Other chest pain; R05.9 Cough, unspecified; R06.02 Shortness of breath; Z79.899 Other long term (current) drug therapy; Z87.891 Personal history of nicotine dependence
CPT/HCPCS: 36415; 71046; 80053; 83735; 83880; 84484; 85025; 85610; 93005; 99283; 99284

== ENCOUNTER → 2024-07-04 20:53 | Outpatient (BNV) | payer OTHER, SELFPAY | PROVIDERS: Emergency Provider Emergency Medicine; PCP Internal Medicine; Visit Provider Internal Medicine Cardiovascular Disease | DX: R07.9 Chest pain, unspecified (principal) | CPT/HCPCS: 93010 ==

== ENCOUNTER → 2024-07-04 20:54 | Outpatient (BNV) | payer OTHER, SELFPAY | PROVIDERS: PCP Internal Medicine; Visit Provider Radiology Diagnostic Radiology | DX: R07.9 Chest pain, unspecified (principal) | CPT/HCPCS: 71046 ==

== ENCOUNTER 2024-10-09 14:34 | Outpatient (REF) | payer OTHER, SELFPAY ==
--- NOTE | 2024-10-09 | PFT_ITS ---
Indication: Chest discomfort Spirometry FEV1 to FVC pre bronchodilators 65% and 72% post bronchodilators; FEV1 1.97 L; FVC 2.73 L. no significant response to bronchodilators noted. Of note the FEF 07/10/2074 decreased to 40% predicted Lung Volumes Total lung capacity 69% predicted; expiratory reserve volume 27% predicted Diffusion Capacity DLCO 97% predicted Comparisons None Interpretation There is a reversible obstructive ventilatory defect suspicious for the diagnosis of asthma or asthma COPD overlap syndrome. The patient does have a smoking history. In addition to that there is evidence of small airways disease. Lung volumes do demonstrate a restrictive ventilatory defect consistent with vnft-bt-gibnamor restrictive lung disease. Need to consider underlying parenchymal lung conditions although likely also related to an elevated BMI. Diffusing capacity is within normal limits. Clinical correlation warranted. MTDD
[2024-10-09 15:24] VITALS: PULSE 54; O2SAT 97
== END 2024-10-09 14:35 | disposition home or self-care (01) ==
LOC: HO.RESP 14:34
PROVIDERS: PCP Internal Medicine; Visit Provider Internal Medicine Geriatric Medicine
DX: R05.2 Subacute cough (principal); R07.89 Other chest pain
CPT/HCPCS: 94010; 94640; 94727; 94729

== ENCOUNTER → 2024-10-09 14:44 | Outpatient (BNV) | payer OTHER, SELFPAY | PROVIDERS: PCP Internal Medicine; Visit Provider Hospitalist | DX: J98.4 Other disorders of lung (principal) | CPT/HCPCS: 94060; 94727; 94729 ==